=== PATIENT | female | born 1930 | race Caucasian/White ===

== ENCOUNTER 2017-05-16 18:43 | Emergency (ER) | payer MEDICARE, MEDICAID ==
--- NOTE | 2017-05-16 20:03 | RAD ---
INDICATION: Head injury. COMPARISON: Comparison is made with a prior CT of the brain from August 19, 2011. TECHNIQUE: Contiguous axial sections of the brain were obtained from the skull base to the vertex without contrast. FINDINGS: The ventricles, cisterns and sulci are enlarged consistent with diffuse atrophy. No significant focal abnormality or mass effect is seen. There is no evidence for hemorrhage. There is soft tissue swelling anterior to the right frontal bone. No fracture is seen. The visualized portion of the paranasal sinuses and mastoid air cells appear clear. IMPRESSION: 1. NO EVIDENCE FOR ACUTE INTRACRANIAL ABNORMALITY. 2. DIFFUSE ATROPHY.
[2017-05-16 20:54] LABS: Hematocrit 45 % (35-47); Hemoglobin 15.1 g/dl (12.0-16.0); Mean Corpuscular HGB Conc 34 g/dl (31-36); Mean Corpuscular Hemoglobin 31 pg (27-31); Mean Corpuscular Volume 93 fL (80-97); Mean Platelet Volume 7 um3 (7.4-10.4); Red Blood Count 4.84 10^6/ul (4.0-5.4); Red Cell Distribution Width 14 % (10.5-15); White Blood Count 8.1 10^3/ul (3.5-10.8)
[2017-05-16 21:10] LABS: Albumin 4.3 g/dL (3.2-5.2); BUN/Creatinine Ratio 17.4 (8-20); Calcium 9.8 mg/dL (8.6-10.3); EGFR African American 80.7 (>60); EGFR Non-African American 62.7 (>60); Potassium 4.1 mmol/L (3.5-5.0); Total Bilirubin 0.4 mg/dL (0.2-1.0); Total Protein 8.3 g/dL (6.4-8.9)
[2017-05-16 21:11] LABS: Troponin I 0.01 ng/mL (<0.04)
[2017-05-16 22:08] VITALS: BP 159/65
--- NOTE | 2017-05-16 22:12 | ED ---
Brock Zuleta Alfonso, scribed for Sadiq Gómez on 05/16/17 at 1929 . Adult Trauma - HPI Summary HPI Summary: This patient is an 87 year old F BIBA from [place] to [facility] s/p a fall earlier today. She reports falling forward in the bathroom, stating I could not catch myself. The patient rates the pain 0/10 in severity. Symptoms aggravated by nothing and alleviated by spontaneous resolution. Patient reports head trauma (area above her left eyebrow). Patient denies LOC, headache and neck pain. PMHx of DM, CHF, HTN, syncope, and COPD. - History of Current Complaint Chief Complaint: EDHeadInjury Stated Complaint: FALL/FOREHEAD ABRASION Time Seen by Provider: 05/16/17 19:12 Hx Obtained From: Patient Mechanism of Injury: Fall Loss of Consciousness: no loss of consciousness Onset Severity: Mild Current Severity: Mild Pain Intensity: 0 Pain Scale Used: 0-10 Numeric Location: Head Aggravating Factor(s): Nothing Alleviating Factor(s): Other - spontaneous resolution Associated Signs & Symptoms: Positive: Other: - . Patient reports head trauma ( area above her left eyebrow). Patient denies LOC, headache and neck pain. - Allergy/Home Medications Allergies/Adverse Reactions: Allergies Allergy/AdvReac Type Severity Reaction Status Date / Time Levofloxacin [From Levaquin] Allergy Unknown Unknown Verified 12/21/13 10:52 Reaction Details Penicillins [PCN] Allergy hallucinate Verified 08/02/15 15:41 PMH/Surg Hx/FS Hx/Imm Hx Endocrine/Hematology History: Reports: Hx Diabetes, Hx Thyroid Disease - hypothyroidism hx Cardiovascular History: Reports: Hx Congestive Heart Failure, Hx Hypercholesterolemia, Hx Hypertension, Hx Pacemaker/ICD, Hx Syncope Respiratory History: Reports: Hx Chronic Obstructive Pulmonary Disease (COPD) GI History: Reports: Hx Gastroesophageal Reflux Disease History: Denies: Hx Dialysis, Hx Renal Disease Musculoskeletal History: Reports: Hx Arthritis Sensory History: Reports: Hx Cataracts - removed, Hx Contacts or Glasses Opthamlomology History: Reports: Hx Cataracts - removed, Hx Contacts or Glasses - Cancer History Cancer Type, Location and Year: 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, surgically removed, per pt Hx Chemotherapy: No Hx Palliative Cancer Treatment: No - Surgical History Surgery Procedure, Year, and Place: PACEMAKER, OPEN HEART SURGERY Hx Anesthesia Reactions: No Infectious Disease History: Reports: Hx Tuberculosis - pediatric Denies: Traveled Outside the [place] in Last 30 Days - Family History Known Family History: Positive: Diabetes - Social History Alcohol Use: None Substance Use Type: Reports: None Hx Tobacco Use: Yes Smoking Status (MU): Former Smoker Type: Cigarettes Have You Smoked in the Last Year: No Review of Systems Musculoskeletal: Other - Positive fall and head trauma; negative pain, and neck pain. Neurological: Other - Negative headache and LOC All Other Systems Reviewed And Are Negative: Yes Physical Exam Triage Information Reviewed: Yes Vital Signs On Initial Exam: Initial Vitals Temp Pulse Resp BP Pulse Ox 97.6 F 80 18 184/95 94 05/16/17 20:29 05/16/17 20:29 05/16/17 20:29 05/16/17 20:29 05/16/17 20:29 Vital Signs Reviewed: Yes Appearance: Positive: Well-Appearing, No Pain Distress Skin: Positive: Warm, Skin Color Reflects Adequate Perfusion, Dry, Other - Abrasion over right forehead. Head/Face: Positive: Normal Head/Face Inspection Eyes: Positive: EOMI, JUAN PABLO ENT: Positive: Normal ENT inspection Neck: Positive: Supple, Nontender Respiratory/Lung Sounds: Positive: Clear to Auscultation, Breath Sounds Present Cardiovascular: Positive: RRR, Pulses are Symmetrical in both Upper and Lower Extremities Abdomen Description: Positive: Nontender, Soft Bowel Sounds: Positive: Present Musculoskeletal: Positive: Normal, Strength/ROM Intact Neurological: Positive: Normal, Sensory/Motor Intact, Alert, Oriented to Person Place, Time Diagnostics - Vital Signs Vital Signs Temp Pulse Resp BP Pulse Ox 05/16/17 22:07 97.7 F 74 18 159/65 05/16/17 20:29 97.6 F 80 18 184/95 94 - Laboratory Lab Results: Lab Results 05/16/17 05/16/17 Range/Units 20:40 20:40 WBC 8.1 (3.5-10.8) 10^3/ul RBC 4.84 (4.0-5.4) 10^6/ul Hgb 15.1 (12.0-16.0) g/dl Hct 45 (35-47) % MCV 93 (80-97) fL MCH 31 (27-31) pg MCHC 34 (31-36) g/dl RDW 14 (10.5-15) % Plt Count 267 (150-450) 10^3/ul MPV 7 L (7.4-10.4) um3 Neut % (Auto) 66.2 (38-83) % Lymph % (Auto) 19.2 L (25-47) % [place] % (Auto) 8.3 (1-9) % Eos % (Auto) 4.8 (0-6) % Baso % (Auto) 1.5 (0-2) % Absolute Neuts (auto) 5.4 (1.5-7.7) 10^3/ul Absolute Lymphs (auto) 1.6 (1.0-4.8) 10^3/ul Absolute Monos (auto) 0.7 (0-0.8) 10^3/ul Absolute Eos (auto) 0.4 (0-0.6) 10^3/ul Absolute Basos (auto) 0.1 (0-0.2) 10^3/ul Absolute Nucleated RBC 0 10^3/ul Nucleated RBC % 0.1 Sodium 133 (133-145) mmol/L Potassium 4.1 (3.5-5.0) mmol/L Chloride 95 L (101-111) mmol/L Carbon Dioxide 29 (22-32) mmol/L Anion Gap 9 (2-11) mmol/L BUN 15 (6-24) mg/dL Creatinine 0.86 (0.51-0.95) mg/dL Est GFR ( Amer) 80.7 (>60) Est GFR (Non-Af Amer) 62.7 (>60) BUN/Creatinine Ratio 17.4 (8-20) Glucose 162 H (70-100) mg/dL Calcium 9.8 (8.6-10.3) mg/dL Total Bilirubin 0.40 (0.2-1.0) mg/dL AST 20 (13-39) U/L ALT 17 (7-52) U/L Alkaline Phosphatase 110 H (34-104) U/L Troponin I 0.01 (<0.04) ng/mL Total Protein 8.3 (6.4-8.9) g/dL Albumin 4.3 (3.2-5.2) g/dL Globulin 4.0 (2-4) g/dL Albumin/Globulin Ratio 1.1 (1-3) Result Diagrams: 05/16/17 20:40 05/16/17 20:40 Lab Statement: Any lab studies that have been ordered have been reviewed, and results considered in the medical decision making process. - CT Brain CT Interpretation Completed By: Radiologist - 1. NO EVIDENCE FOR ACUTE INTRACRANIAL ABNORMALITY. 2. DIFFUSE ATROPHY. Adult Trauma Course/Dx - Course Assessment/Plan: This patient is an 87 year old F BIBA from [place] to [facility] s /p a fall earlier today. She reports falling forward in the bathroom, stating I could not catch myself. The patient rates the pain 0/10 in severity. Symptoms aggravated by nothing and alleviated by spontaneous resolution. Patient reports head trauma (area above her left eyebrow). Patient denies LOC, headache and neck pain. PMHx of DM, CHF, HTN, syncope, and COPD. A CT brain reveals 1. NO EVIDENCE FOR ACUTE INTRACRANIAL ABNORMALITY. 2. DIFFUSE ATROPHY. Patient will be discharged with follow up from PCP. The patient is agreeable with this plan. - Diagnoses Provider Diagnoses: Forehead contusion, Head injury Discharge - Discharge Plan Condition: Stable Disposition: HOME Patient Education Materials: Contusion in Adults (ED) Referrals: Kami Bob MD [Primary Care Provider] - 3 Days The documentation as recorded by the Brock galeana Alfonso accurately reflects the service I personally performed and the decisions made by , Sadiq Gómez.
== END 2017-05-16 22:07 | disposition home or self-care (01) ==
LOC: ED 18:43
DX: S00.83XA Contusion of other part of head, initial encounter (principal); S09.90XA Unspecified injury of head, initial encounter; W19.XXXA Unspecified fall, initial encounter; Y93.9 Activity, unspecified; Y92.9 Unspecified place or not applicable; Y99.9 Unspecified external cause status; Z87.891 Personal history of nicotine dependence; Z86.79 Personal history of other diseases of the circulatory system
CPT/HCPCS: 36415; 70450; 80053; 84484; 85025; 99282

== ENCOUNTER 2017-07-22 12:33 | Emergency (ER) | payer MEDICARE, MEDICAID ==
[2017-07-22] MEDS ORDERED: NS 0.9% 1000 ML* 1,000 ML IV SCH (15:30)
--- NOTE | 2017-07-22 16:00 | RAD ---
INDICATION: Fall. Intracranial injury. COMPARISON: CT brain May 16, 2017 TECHNIQUE: Noncontrast axial source images were acquired from the skull base to the vertex. FINDINGS: Ventricles/sulci: There is cortical atrophy with compensatory dilatation of the CSF spaces. Brain parenchyma: There is periventricular and subcortical white matter change compatible with chronic ischemia. Intracranial hemorrhage:None. Extra-axial spaces: There are no abnormal extra axial fluid collections or evidence of extra-axial mass. Calvarium: There is no calvarial fracture or other calvarial abnormality. Scalp: There is no evidence of scalp or extracalvarial soft tissue abnormality. Paranasal sinuses/mastoid: The paranasal sinuses and mastoid air cells are clear. Other: None. IMPRESSION: CORTICAL ATROPHY WITH CHRONIC MICROVASCULAR ISCHEMIC CHANGES. NO ACUTE FINDINGS.
--- NOTE | 2017-07-22 16:01 | RAD ---
INDICATION: Weakness COMPARISON: Chest x-ray dated March 03, 2015 TECHNIQUE: Single AP portable view of the chest was obtained. FINDINGS: Image quality is compromised due to the relative inferiority of a portable chest x-ray. Stable postsurgical changes include right upper chest cardiac pacemaker with 2 leads overlying the heart, sternotomy wires and a prostatic heart valve. The heart and mediastinum exhibit normal size and contour. The lungs are grossly clear. There is no evidence of a large pleural effusion. Visualized bones are normal for the patient's age. IMPRESSION: No radiographic evidence for acute cardiopulmonary abnormality on this portable chest x-ray.
--- NOTE | 2017-07-22 16:02 | RAD ---
Indication: Weakness, falls. Bilateral knee pain. Comparison: No relevant prior exams available on the [facility] for comparison. Technique: AP, tunnel, crosstable lateral, sunrise views of the knees. Report: RIGHT knee: Negative for joint effusion, fracture, or malalignment. Mild osteophytosis. Mild tricompartmental joint space narrowing and suggestion of chondrocalcinosis. Peripheral vascular calcifications. Unremarkable soft tissue contours. LEFT knee: Normal alignment. Small suprapatellar joint effusion. Negative for fracture. Moderately severe lateral joint space narrowing with associated flattening of the articular surfaces and subchondral sclerosis. Subtle chondrocalcinosis. Peripheral vascular calcifications. Unremarkable soft tissue contours. IMPRESSION: 1. 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 2. Small LEFT knee joint effusion. 3. Negative for fracture or malalignment.
[2017-07-22 17:25] LABS: Albumin 4.1 g/dL (3.2-5.2); BUN/Creatinine Ratio 21.1 (8-20); C Reactive Protein 1.11 mg/L (< 5.00); Calcium 9.7 mg/dL (8.6-10.3); EGFR African American 100.6 (>60); EGFR Non-African American 78.2 (>60); Globulin 3.6 g/dL (2-4); Magnesium 1.9 mg/dL (1.9-2.7); Total Bilirubin 0.4 mg/dL (0.2-1.0); Total Protein 7.7 g/dL (6.4-8.9); Troponin I 0.01 ng/mL (<0.04)
[2017-07-22 17:41] LABS: Urine Bacteria Absent (Absent); Urine Bilirubin Negative (Negative); Urine Glucose Negative (Negative); Urine Nitrite Negative (Negative)
[2017-07-22 18:05] LABS: Hematocrit 41 % (35-47); Hemoglobin 13.7 g/dl (12.0-16.0); Mean Corpuscular HGB Conc 34 g/dl (31-36); Mean Corpuscular Hemoglobin 31 pg (27-31); Mean Corpuscular Volume 92 fL (80-97); Mean Platelet Volume 7 um3 (7.4-10.4); Red Cell Distribution Width 14 % (10.5-15); White Blood Count 8.1 10^3/ul (3.5-10.8)
[2017-07-22 18:11] LABS: TSH (Thyroid Stimulating Horm) 0.75 mcIU/mL (0.34-5.60)
[2017-07-22] MEDS ORDERED: Nitrofurantoin Macrocrystals* 50 MG CAP PO ONE ×2 (19:03→19:04)
--- NOTE | 2017-07-22 19:09 | ED ---
Matt Zuleta Benjamin, scribed for Marco Dejesus MD on 07/22/17 at 1520 . Neurological HPI - HPI Summary HPI Summary: 87yo female presents to ED from [place] for AMS and frequent falls. Pt fell 3 times in the last 2 weeks. Today at noon, [facility] cyber security consultant noticed pt having slurred speech and blurred vision and called her PCP. PCP suggested ED visit. Pt has chronic bilateral LE, with usually left leg stronger than her right leg, but states that her left leg has been increasingly weak lately. Pt also presents with left sided facial droop. No prior hx of CVA. Denies any numbness , tingling, or changes in sensation. - History of Current Complaint Chief Complaint: EDGeneral Stated Complaint: AMS, FALL THREE TIMES THIS WEEK Time Seen by Provider: 07/22/17 15:08 Hx Obtained From: Patient, Family/Front Office Supervisor - family Onset/Duration: Sudden Onset, Started hours ago, Resolved Timing: Intermittent Episodes Lasting: - few minutes Onset Severity: Mild Current Severity: None Neurological Deficit Location: Facial - left facial droop Pain Intensity: 0 Character: Impaired Speech, Visual Changes - blurry vision - Allergy/Home Medications Allergies/Adverse Reactions: Allergies Allergy/AdvReac Type Severity Reaction Status Date / Time Levofloxacin [From Levaquin] Allergy Unknown Unknown Verified 07/22/17 14:51 Reaction Details Penicillins [PCN] Allergy hallucinate Verified 07/22/17 14:51 Home Medications: Home Medications Artificial Tears* 15 ML BTL [Polyvinyl Alcohol 1.4% OPTH*] 2 drop RIGHT EYE TID PRN 07/22/17 [History Confirmed 07/22/17] Dextrose (Diabetic Use) [Glucose] 8 gm PO DAILY PRN 07/22/17 [History Confirmed 07/22/17] Diltiazem CD CAP* [Cardizem CD CAP*] 240 mg PO QAM 07/22/17 [History Confirmed 07/22/17] Docusate CAP* [Colace Cap*] 200 mg PO DAILY PRN 07/22/17 [History Confirmed ] Ferrous Gluconate TAB* [Fergon TAB*] 325 mg PO BID 07/22/17 [History Confirmed 07/22/17] Fluticasone NASAL SPRAY 50MCG* [Flonase NASAL SPRAY 50MCG*] 1 spray BOTH NARES DAILY 07/22/17 [History Confirmed 07/22/17] Insulin Glargine [Lantus Solostar 5x3 ML PENS] 15 units SUBCUT QAM 07/22/17 [ History Confirmed 07/22/17] Loperamide HCl [Imodium A-D] 4 mg PO QID PRN MDD 16 mg 07/22/17 [History Confirmed 07/22/17] Magnesium Oxide TAB* [MagOx 400 TAB*] 800 mg PO QAM 07/22/17 [History Confirmed 07/22/17] Multiple Vitamins W/ Minerals [Preservision Areds 2 + Mu] 1 cap PO BID 07/22/17 [History Confirmed 07/22/17] Polyethylene Glycol 3350* [Miralax*] 17 gm PO DAILY PRN 07/22/17 [History Confirmed 07/22/17] Pravastatin (NF) [Pravachol (NF)] 40 mg PO BEDTIME 07/22/17 [History Confirmed 07/22/17] SitaGLIPtin (NF) [Januvia (NF)] 100 mg PO DAILY 07/22/17 [History Confirmed ] Valsartan TAB* [Diovan TAB*] 80 mg PO DAILY 07/22/17 [History Confirmed 07/22/17 ] glipiZIDE TAB* [Glucotrol TAB*] 10 mg PO BID 07/22/17 [History Confirmed ] PMH/Surg Hx/FS Hx/Imm Hx Endocrine/Hematology History: Reports: Hx Diabetes, Hx Thyroid Disease - hypothyroidism hx Cardiovascular History: Reports: Hx Congestive Heart Failure, Hx Hypercholesterolemia, Hx Hypertension, Hx Pacemaker/ICD, Hx Syncope Respiratory History: Reports: Hx Chronic Obstructive Pulmonary Disease (COPD) GI History: Reports: Hx Gastroesophageal Reflux Disease History: Denies: Hx Dialysis, Hx Renal Disease Musculoskeletal History: Reports: Hx Arthritis Sensory History: Reports: Hx Cataracts - removed, Hx Contacts or Glasses Opthamlomology History: Reports: Hx Cataracts - removed, Hx Contacts or Glasses - Cancer History Cancer Type, Location and Year: 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, surgically removed, per pt Hx Chemotherapy: No Hx Palliative Cancer Treatment: No - Surgical History Surgery Procedure, Year, and Place: PACEMAKER, OPEN HEART SURGERY Hx Anesthesia Reactions: No - Immunization History Date of Tetanus Vaccine: unknown Date of Influenza Vaccine: UTD Infectious Disease History: No Infectious Disease History: Reports: Hx Tuberculosis - pediatric Denies: Traveled Outside the [place] in Last 30 Days - Family History Known Family History: Positive: Diabetes - Social History Occupation: Retired Lives: Assisted Living Alcohol Use: None Substance Use Type: Reports: None Hx Tobacco Use: Yes Smoking Status (MU): Former Smoker Type: Cigarettes Have You Smoked in the Last Year: No Review of Systems Constitutional: Negative Positive: Blurred Vision ENT: Negative Cardiovascular: Negative Respiratory: Negative Gastrointestinal: Negative Genitourinary: Negative Musculoskeletal: Negative Skin: Negative Positive: Slurred Speech Psychological: Normal All Other Systems Reviewed And Are Negative: Yes Physical Exam Triage Information Reviewed: Yes Vital Signs On Initial Exam: Initial Vitals Temp Pulse Resp BP Pulse Ox 97.7 F 78 18 152/67 95 07/22/17 14:49 07/22/17 14:49 07/22/17 14:49 07/22/17 14:49 07/22/17 14:49 Vital Signs Reviewed: Yes Appearance: Positive: Well-Appearing, No Pain Distress, Well-Nourished Skin: Positive: Warm, Skin Color Reflects Adequate Perfusion, Dry Head/Face: Positive: Normal Head/Face Inspection Eyes: Positive: Normal, EOMI, JUAN PABLO ENT: Positive: Normal ENT inspection Neck: Positive: Supple, Nontender Respiratory/Lung Sounds: Positive: Clear to Auscultation, Breath Sounds Present Cardiovascular: Positive: RRR, Pulses are Symmetrical in both Upper and Lower Extremities Abdomen Description: Positive: Nontender, Soft Bowel Sounds: Positive: Present Musculoskeletal: Negative: Strength/ROM Intact - chronic bilateral LE weakness, no acute changes Neurological: Positive: Sensory/Motor Intact, Alert, Oriented to Person Place, Time, Facial Droop - left facial drrop. Negative: Focal Deficit @ - none Psychiatric: Positive: Affect/Mood Appropriate - Uri Coma Scale Coma Scale Total: 15 Diagnostics - Vital Signs Vital Signs Temp Pulse Resp BP Pulse Ox 07/22/17 14:49 97.7 F 78 18 152/67 95 - Laboratory Lab Results: Lab Results 07/22/17 07/22/17 07/22/17 Range/Units 16:12 16:28 17:00 WBC (3.5-10.8) 10^3/ul RBC (4.0-5.4) 10^6/ul Hgb (12.0-16.0) g/dl Hct (35-47) % MCV (80-97) fL MCH (27-31) pg MCHC (31-36) g/dl RDW (10.5-15) % Plt Count (150-450) 10^3/ul MPV (7.4-10.4) um3 Neut % (Auto) (38-83) % Lymph % (Auto) (25-47) % [place] % (Auto) (1-9) % Eos % (Auto) (0-6) % Baso % (Auto) (0-2) % Absolute Neuts (auto) (1.5-7.7) 10^3/ul Absolute Lymphs (auto) (1.0-4.8) 10^3/ul Absolute Monos (auto) (0-0.8) 10^3/ul Absolute Eos (auto) (0-0.6) 10^3/ul Absolute Basos (auto) (0-0.2) 10^3/ul Absolute Nucleated RBC 10^3/ul Nucleated RBC % INR (Anticoag Therapy) 0.83 L (0.89-1.11) APTT 28.6 (26.0-36.3) seconds Sodium 136 (133-145) mmol/L Potassium 4.0 (3.5-5.0) mmol/L Chloride 100 L (101-111) mmol/L Carbon Dioxide 29 (22-32) mmol/L Anion Gap 7 (2-11) mmol/L BUN 15 (6-24) mg/dL Creatinine 0.71 (0.51-0.95) mg/dL Est GFR ( Amer) 100.6 (>60) Est GFR (Non-Af Amer) 78.2 (>60) BUN/Creatinine Ratio 21.1 H (8-20) Glucose 92 (70-100) mg/dL Calcium 9.7 (8.6-10.3) mg/dL Magnesium 1.9 (1.9-2.7) mg/dL Total Bilirubin 0.40 (0.2-1.0) mg/dL AST 24 (13-39) U/L ALT 18 (7-52) U/L Alkaline Phosphatase 87 (34-104) U/L Total Creatine Kinase 56 (10-223) U/L CK-MB (CK-2) 1.7 (0.6-6.3) ng/mL Troponin I 0.01 (<0.04) ng/mL C-Reactive Protein 1.11 (< 5.00) mg/L Total Protein 7.7 (6.4-8.9) g/dL Albumin 4.1 (3.2-5.2) g/dL Globulin 3.6 (2-4) g/dL Albumin/Globulin Ratio 1.1 (1-3) Lipase 74 (11.0-82.0) U/L TSH 0.75 (0.34-5.60) mcIU/mL Urine Color Straw Urine Appearance Cloudy Urine pH 8.0 (5-9) Ur Specific [place] 1.005 L (1.010-1.030) Urine Protein 1+(30 mg/dl) H (Negative) Urine Ketones Negative (Negative) Urine Blood 2+ H (Negative) Urine Nitrate Negative (Negative) Urine Bilirubin Negative (Negative) Urine Urobilinogen Negative (Negative) Ur Leukocyte Esterase 3+ H (Negative) Urine WBC (Auto) 3+(>20/hpf) H (Absent) Urine RBC (Auto) 3+(>10/hpf) H (Absent) Urine Bacteria Absent (Absent) Urine Glucose Negative (Negative) 07/22/ Range/Units 17:58 WBC 8.1 (3.5-10.8) 10^3/ul RBC 4.40 (4.0-5.4) 10^6/ul Hgb 13.7 (12.0-16.0) g/dl Hct 41 (35-47) % MCV 92 (80-97) fL MCH 31 (27-31) pg MCHC 34 (31-36) g/dl RDW 14 (10.5-15) % Plt Count 221 (150-450) 10^3/ul MPV 7 L (7.4-10.4) um3 Neut % (Auto) 65.0 (38-83) % Lymph % (Auto) 20.6 L (25-47) % [place] % (Auto) 9.6 H (1-9) % Eos % (Auto) 4.1 (0-6) % Baso % (Auto) 0.7 (0-2) % Absolute Neuts (auto) 5.2 (1.5-7.7) 10^3/ul Absolute Lymphs (auto) 1.7 (1.0-4.8) 10^3/ul Absolute Monos (auto) 0.8 (0-0.8) 10^3/ul Absolute Eos (auto) 0.3 (0-0.6) 10^3/ul Absolute Basos (auto) 0.1 (0-0.2) 10^3/ul Absolute Nucleated RBC 0.01 10^3/ul Nucleated RBC % 0.1 INR (Anticoag Therapy) (0.89-1.11) APTT (26.0-36.3) seconds Sodium (133-145) mmol/L Potassium (3.5-5.0) mmol/L Chloride (101-111) mmol/L Carbon Dioxide (22-32) mmol/L Anion Gap (2-11) mmol/L BUN (6-24) mg/dL Creatinine (0.51-0.95) mg/dL Est GFR ( Amer) (>60) Est GFR (Non-Af Amer) (>60) BUN/Creatinine Ratio (8-20) Glucose (70-100) mg/dL Calcium (8.6-10.3) mg/dL Magnesium (1.9-2.7) mg/dL Total Bilirubin (0.2-1.0) mg/dL AST (13-39) U/L ALT (7-52) U/L Alkaline Phosphatase (34-104) U/L Total Creatine Kinase (10-223) U/L CK-MB (CK-2) (0.6-6.3) ng/mL Troponin I (<0.04) ng/mL C-Reactive Protein (< 5.00) mg/L Total Protein (6.4-8.9) g/dL Albumin (3.2-5.2) g/dL Globulin (2-4) g/dL Albumin/Globulin Ratio (1-3) Lipase (11.0-82.0) U/L TSH (0.34-5.60) mcIU/mL Urine Color Urine Appearance Urine pH (5-9) Ur Specific [place] (1.010-1.030) Urine Protein (Negative) Urine Ketones (Negative) Urine Blood (Negative) Urine Nitrate (Negative) Urine Bilirubin (Negative) Urine Urobilinogen (Negative) Ur Leukocyte Esterase (Negative) Urine WBC (Auto) (Absent) Urine RBC (Auto) (Absent) Urine Bacteria (Absent) Urine Glucose (Negative) Result Diagrams: 07/22/17 17:58 07/22/17 16:28 Lab Statement: Any lab studies that have been ordered have been reviewed, and results considered in the medical decision making process. Course/Dx - Course Course Of Treatment: Reviewed pts medication and allergy lists. High Blood pressure noted. DISCUSSED RESULTS WITH PATIENT/FAMILY AND DR BLACKWELL, NEUROLOGY. F/U WITH PMD. DDX INCLUDED PERIFERAL NEUOPATHY. NO CRITICAL CARE TIME. - Diagnoses Provider Diagnoses: Weakness, Falls frequently, UTI (urinary tract infection) Discharge - Discharge Plan Condition: Stable Disposition: HOME Prescriptions: Nitrofurantoin Monohyd Macro [Macrobid] 100 mg PO BID #18 cap Patient Education Materials: Weakness (ED), Urinary Tract Infection in Women ( ED), Fall Prevention for Older Adults (ED), Knee Pain (ED) Referrals: Kami Bob MD [Primary Care Provider] - Additional Instructions: FOLLOW UP WITH YOUR DOCTOR. RETURN TO THE EMERGENCY DEPARTMENT FOR ANY WORSENING OF YOUR CONDITION; WEAKNESS , NUMBNESS, YOU FEEL ILL OR QUESTIONS OR CONCERNS. The documentation as recorded by the Matt galeana Benjamin accurately reflects the service I personally performed and the decisions made by me, Marco Dejesus MD.
[2017-07-22 19:40] VITALS: BP 165/81
== END 2017-07-22 19:41 | disposition home or self-care (01) ==
LOC: ED 12:33
DX: R53.1 Weakness (principal); N39.0 Urinary tract infection, site not specified; Z91.81 History of falling; R47.81 Slurred speech; Z87.891 Personal history of nicotine dependence
CPT/HCPCS: 36415; 70450; 71010; 80053; 81003; 81015; 82550; 82553; 83690; 83735; 84443; 84484; 85025; 85610; 85730; 86140; 87086; 93005; 99284; A9270-GY

== ENCOUNTER 2017-08-19 12:41 | Emergency (ER) | payer MEDICARE, MEDICAID ==
--- NOTE | 2017-08-19 14:05 | RAD ---
HISTORY: Weakness COMPARISONS: July 22, 2017 VIEWS: 1: frontal portable view of the chest at 1:40 PM FINDINGS: LINES AND TUBES: A right-sided pacemaker is noted CARDIOMEDIASTINAL SILHOUETTE: The cardiomediastinal silhouette is normal for portable technique. A prosthetic heart valve is noted. PLEURA: The costophrenic angles are sharp. No pleural abnormalities are noted. LUNG PARENCHYMA: The lungs are clear. ABDOMEN: The upper abdomen is clear. There is no subphrenic gas. BONES AND SOFT TISSUES: The patient is status post median sternotomy. IMPRESSION: NO ACTIVE CARDIOPULMONARY DISEASE.
[2017-08-19 14:13] LABS: Hematocrit 40 % (35-47); Hemoglobin 13.4 g/dl (12.0-16.0); Mean Corpuscular HGB Conc 33 g/dl (31-36); Mean Corpuscular Hemoglobin 31 pg (27-31); Mean Corpuscular Volume 93 fL (80-97); Mean Platelet Volume 8 um3 (7.4-10.4); Red Blood Count 4.34 10^6/ul (4.0-5.4); Red Cell Distribution Width 14 % (10.5-15); White Blood Count 6.5 10^3/ul (3.5-10.8)
[2017-08-19 14:20] LABS: Urine Bacteria Absent (Absent); Urine Bilirubin Negative (Negative); Urine Glucose Negative (Negative); Urine Nitrite Negative (Negative)
[2017-08-19 14:25] LABS: C Reactive Protein 2.13 mg/L (< 5.00); Calcium 9.5 mg/dL (8.6-10.3); EGFR Non-African American 72.3 (>60); Globulin 3.1 g/dL (2-4); Potassium 3.9 mmol/L (3.5-5.0); Total Bilirubin 0.3 mg/dL (0.2-1.0); Total Protein 7.1 g/dL (6.4-8.9)
[2017-08-19 17:00] VITALS: BP 152/64
--- NOTE | 2017-08-19 18:38 | ED ---
Brock Zuleta Alfonso scribed for Gideon Jay MD on 08/19/17 at 1319 . Complex/Multi-Sys Presentation - HPI Summary HPI Summary: This patient is an 87 year old F BIBA from assisted living to [facility] with a chief complaint of low blood sugar since waking up today. She gets insulin once a day in the evenings. The patient rates the pain 0/10 in severity. Symptoms aggravated by nothing. Symptoms alleviated by oral glucose [employer]. Patient reports mild cough, and dysuria (sometimes). Patient denies fever, CP, and SOB. - History Of Current Complaint Chief Complaint: EDGeneral Time Seen by Provider: 08/19/17 13:09 Hx Obtained From: Patient Onset/Duration: Gradual Onset, Lasting Hours, Resolved Timing: Constant Severity Currently: None Aggravating Factor(s): nothing Alleviating Factor(s): oral glucose [employer]. Associated Signs And Symptoms: Positive: Other - mild cough, and dysuria ( sometimes). Patient denies fever, CP, and SOB. - Allergies/Home Medications Allergies/Adverse Reactions: Allergies Allergy/AdvReac Type Severity Reaction Status Date / Time Levofloxacin [From Levaquin] Allergy Unknown Unknown Verified 07/22/17 14:51 Reaction Details Penicillins [PCN] Allergy hallucinate Verified 07/22/17 14:51 Home Medications: Home Medications Amoxicillin PO (*) [Amoxicillin 500 MG CAP*] 2,000 mg PO ONCE 08/19/17 [History Confirmed 08/19/17] Aspirin Low Dose CHEW TAB* [Aspirin Low Dose TAB*] 81 mg PO DAILY 08/19/17 [ History Confirmed 08/19/17] Hydrocortisone SUPP* [Anusol HC Supp*] 25 mg MN BID PRN 08/19/17 [History Confirmed 08/19/17] Ibuprofen TAB* [Motrin TAB* 600 MG] 600 mg PO .Q4-6H PRN 08/19/17 [History Confirmed 08/19/17] Loperamide CAP* [Imodium CAP*] 4 mg PO DAILY PRN 08/19/17 [History Confirmed ] Ranitidine TAB (NF) [Zantac TAB (NF)] 150 mg PO BID PRN 08/19/17 [History Confirmed 08/19/17] PMH/Surg Hx/FS Hx/Imm Hx Endocrine/Hematology History: Reports: Hx Diabetes, Hx Thyroid Disease - hypothyroidism hx Cardiovascular History: Reports: Hx Congestive Heart Failure, Hx Hypercholesterolemia, Hx Hypertension, Hx Pacemaker/ICD, Hx Syncope Respiratory History: Reports: Hx Chronic Obstructive Pulmonary Disease (COPD) GI History: Reports: Hx Gastroesophageal Reflux Disease History: Denies: Hx Dialysis, Hx Renal Disease Musculoskeletal History: Reports: Hx Arthritis Sensory History: Reports: Hx Cataracts - removed, Hx Contacts or Glasses Opthamlomology History: Reports: Hx Cataracts - removed, Hx Contacts or Glasses EENT History: Denies: Hx Deafness - Cancer History Cancer Type, Location and Year: 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, surgically removed, per pt Hx Chemotherapy: No Hx Palliative Cancer Treatment: No - Surgical History Surgery Procedure, Year, and Place: PACEMAKER, OPEN HEART SURGERY Hx Anesthesia Reactions: No - Immunization History Date of Tetanus Vaccine: unknown Date of Influenza Vaccine: UTD Infectious Disease History: No Infectious Disease History: Reports: Hx Tuberculosis - pediatric Denies: Traveled Outside the [place] in Last 30 Days - Family History Known Family History: Positive: Diabetes - Social History Alcohol Use: None Hx Substance Use: No Substance Use Type: Reports: None Hx Tobacco Use: Yes Smoking Status (MU): Former Smoker Type: Cigarettes Have You Smoked in the Last Year: No Review of Systems Positive: Other - low blood sugar. Negative: Fever Negative: Chest Pain Positive: Cough. Negative: Shortness Of Breath Positive: dysuria All Other Systems Reviewed And Are Negative: Yes Physical Exam - Summary Physical Exam Summary: VITAL SIGNS: Reviewed. GENERAL: Patient is an elderly and nourished female who is lying comfortable in the stretcher. Patient is not in any acute respiratory distress. HEAD AND FACE: No signs of trauma. No ecchymosis, hematomas or skull depressions. No sinus tenderness. EYES: PERRLA, EOMI x 2, No injected conjunctiva, no nystagmus. EARS: Hearing grossly intact. Ear canals and tympanic membranes are within normal limits. MOUTH: Oropharynx within normal limits. NECK: Supple, trachea is midline, no adenopathy, no JVD, no carotid bruit, no c- spine tenderness, neck with full ROM. CHEST: Symmetric, no tenderness at palpation LUNGS: Clear to auscultation bilaterally. No wheezing or crackles. CVS: Regular rate and rhythm, S1 and S2 present, no murmurs or gallops appreciated. ABDOMEN: Soft, non-tender. No signs of distention. No rebound no guarding, and no masses palpated. Bowel sounds are normal. EXTREMITIES: FROM in all major joints, no edema, no cyanosis or clubbing. NEURO: Alert and oriented x 3. No acute neurological deficits. Speech is normal and follows commands. SKIN: Dry and warm Triage Information Reviewed: Yes Vital Signs On Initial Exam: Initial Vitals Temp Pulse Resp BP Pulse Ox 97.4 F 77 20 168/62 99 08/19/17 12:43 08/19/17 12:43 08/19/17 12:43 08/19/17 12:43 08/19/17 12:43 Vital Signs Reviewed: Yes - [place] Coma Scale Coma Scale Total: 15 Diagnostics - Vital Signs Vital Signs Temp Pulse Resp BP Pulse Ox 08/19/17 12:43 97.4 F 77 20 168/62 99 - Laboratory Result Diagrams: 08/19/17 13:50 08/19/17 13:50 Lab Statement: Any lab studies that have been ordered have been reviewed, and results considered in the medical decision making process. - Radiology CXR Radiology Interpretation Completed By: Radiologist - NO ACTIVE CARDIOPULMONARY DISEASE. ED physician has reviewed this radiology report and agrees. - EKG 1324 Cardiac Rate: NL EKG Rhythm: Sinus Rhythm - BPM 77 EKG Interpretation: RBBB. EKG Comparison: No Significant Change - 07/22/17 Complex Multi-Symp Course/Dx Assessment/Plan: This patient is an 87 year old F BIBA from assisted living to [facility] with a chief complaint of low blood sugar since waking up today. She gets insulin once a day in the evenings. The patient rates the pain 0/10 in severity. Symptoms aggravated by nothing. Symptoms alleviated by oral glucose [employer]. Patient reports mild cough, and dysuria (sometimes). Patient denies fever , CP, and SOB. An EKG reveals Sinus Rhythm and a RBBB. CXR reveals, per radiologist, NO ACTIVE CARDIOPULMONARY DISEASE. ED physician has reviewed this radiology report and agrees. Test results with no significant abnormalities. Glucose of 134 and later was 140. The patient has been and continues to be asymptomatic, and she is eating and drinking, She was ambulated around the ED with a good steady walk. The patient was observed for more than 4 hours and her symptoms did not return. Therefore, the patient will be discharged back to long-term with follow up from PCP. The patient is agreeable with this plan. The patient is hemodynamically stable, alert and oriented x3. - Diagnoses Provider Diagnoses: Hypoglycemia Discharge - Discharge Plan Condition: Stable Disposition: HOME Patient Education Materials: Hypoglycemia in a Person with Diabetes (ED) Referrals: Kami Bob MD [Primary Care Provider] - 3 Days Additional Instructions: RETURN TO THE EMERGENCY DEPARTMENT FOR CHANGING OR WORSENING SYMPTOMS. The documentation as recorded by the Brock galeana Alfonso accurately reflects the service I personally performed and the decisions made by Pierre olivas Walter, MD.
== END 2017-08-19 16:59 | disposition home or self-care (01) ==
LOC: ED 12:41
DX: E11.649 Type 2 diabetes mellitus with hypoglycemia without coma (principal); Z79.4 Long term (current) use of insulin; R05 Cough; R30.0 Dysuria; I45.10 Unspecified right bundle-branch block; E03.9 Hypothyroidism, unspecified; I50.9 Heart failure, unspecified; E78.00 Pure hypercholesterolemia, unspecified; I10 Essential (primary) hypertension; Z95.0 Presence of cardiac pacemaker; Z79.82 Long term (current) use of aspirin; J44.9 Chronic obstructive pulmonary disease, unspecified; K21.9 Gastro-esophageal reflux disease without esophagitis; Z85.828 Personal history of other malignant neoplasm of skin; Z88.1 Allergy status to other antibiotic agents; Z88.0 Allergy status to penicillin; Z87.891 Personal history of nicotine dependence
CPT/HCPCS: 36415; 71010; 80053; 81003; 81015; 85025; 86140; 93005; 99283

== ENCOUNTER 2017-09-08 16:22 | Emergency (ER) | payer MEDICARE, MEDICAID ==
[2017-09-08] MEDS ORDERED: Tetan/Diph/Pertus SYR(Tdap)* 0.5 ML SYR(BOOSTRIX) use SYR IM ONE (17:56)
[2017-09-08 18:11] LABS: Hematocrit 41 % (35-47); Hemoglobin 13.8 g/dl (12.0-16.0); Mean Corpuscular HGB Conc 34 g/dl (31-36); Mean Corpuscular Hemoglobin 31 pg (27-31); Mean Corpuscular Volume 92 fL (80-97); Mean Platelet Volume 8 um3 (7.4-10.4); Red Blood Count 4.49 10^6/ul (4.0-5.4); Red Cell Distribution Width 14 % (10.5-15); White Blood Count 7.1 10^3/ul (3.5-10.8)
[2017-09-08 18:26] LABS: Calcium 9.6 mg/dL (8.6-10.3); EGFR African American 73.7 (>60); EGFR Non-African American 57.3 (>60); Globulin 3.4 g/dL (2-4); Total Bilirubin 0.4 mg/dL (0.2-1.0); Total Protein 7.4 g/dL (6.4-8.9)
--- NOTE | 2017-09-08 18:35 | RAD ---
Indication: Fall; facial abrasions. Laceration to bridge of the nose. Comparison: July 22, 2017 CT. Technique: Noncontrast CT vertex of skull through foramen magnum. Report: Moderate prominence of the cerebral sulci. Unremarkable ventricles and basal cisterns. Negative for michael matter white matter obscuration, intra or extra-axial hemorrhage, or mass effect. 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 Unremarkable visualized orbital contents. Negative for calvarial or skull base fracture. Clear visualized paranasal sinuses and mastoid air spaces. Soft tissue swelling over the bridge of the nose. No loculated scalp hematoma evident. IMPRESSION: 1. No evidence for traumatic brain injury or acute intracranial process. 2. Involutional change and stigmata of chronic small vessel ischemic disease.
[2017-09-08 18:37] LABS: Urine Bilirubin Negative (Negative); Urine Glucose Negative (Negative); Urine Nitrite Negative (Negative)
--- NOTE | 2017-09-08 18:38 | RAD ---
INDICATION: Fall with facial abrasions and laceration over the bridge of the nose. COMPARISON: CT brain of the same date. TECHNIQUE: Multidetector CT base of the skull through mandible without contrast. Multiplanar reformation. REPORT: Artifact from dental amalgam. Soft tissue edema over the bridge of the nose. Negative for loculated soft tissue hematoma. Unremarkable orbital contents. The orbital and maxillary sinus margins, zygomatic arches, lamina papyracea, base of the maxilla, pterygoid plates, and nasal bones are intact. The senile morphology mandible is intact. Normal temporal mandibular joint alignment. Clear paranasal sinuses and visualized mastoid air spaces. IMPRESSION: Negative for maxillofacial fracture.
--- NOTE | 2017-09-08 18:44 | RAD ---
INDICATION: Mechanical fall. Facial abrasions and lacerations at the bridge of the nose. COMPARISON: No relevant prior exams available on the [facility] PACS for comparison. TECHNIQUE: Multidetector CT images foramen magnum to lung apices without contrast. Multiplanar reformation. REPORT: Minimal degenerative C3-C4 and C4-C5 anterolisthesis. Negative for facet subluxation at any level. Negative for vertebral body or posterior element fracture. Negative for paravertebral hematoma. Diffuse advanced degenerative spondylosis and facet joint osteoarthritis. At C3-C4 uncinate process spurring and facet joint osteoarthritis results in mild RIGHT and moderate LEFT foraminal stenosis. At C4-C5 uncinate process spurring and facet joint osteoarthritis results in moderately severe bilateral foraminal stenosis. Negative for significant acquired spinal stenosis at C5-C6 or C6-C7. Congenitally generous pedicles lengths mitigating against more significant acquired spinal stenosis. IMPRESSION: Negative for traumatic injury of the cervical spine.
[2017-09-08 19:14] VITALS: BP 157/75
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
== END 2017-09-08 19:22 | disposition home or self-care (01) ==
LOC: ED 16:22
DX: S00.81XA Abrasion of other part of head, initial encounter (principal); S00.83XA Contusion of other part of head, initial encounter; W19.XXXA Unspecified fall, initial encounter; Y93.9 Activity, unspecified; Y92.9 Unspecified place or not applicable
CPT/HCPCS: 36415; 70450; 70486; 72125; 80053; 81003; 83605; 85025; 90471; 90715; 99282

== ENCOUNTER 2017-11-15 09:19 | Emergency (ER) | payer MEDICARE, MEDICAID ==
--- NOTE | 2017-11-15 12:29 | ED ---
HPI Diabetic - HPI Summary HPI Summary: Pt here w/ low blood glucose this morning. Was 77 and then she received all of her diabetic medications (ie. glucophage, glipizide, lantus 15units and ....). Shortly thereafter, staff was asking her what was wrong, would not let her go to breakfast as they were concerned about her "acting strange". They rechecked her glucose (and she had not had anything to eat at this point) and it was 38. They administered oral glucose and sent her here for evaluation. She was 69 when she arrived here. Received a tuna sandwich and milk and glucose rechecked 2.3 hrs later - she is 129, alert, feels well w/o complaints. SHe admits he blood sugars ahve been all over (400's this week which is why she didn't have a bedtime snack last night as she usually does). Follows w/ PCP for diabetes control. Son-in-law is here w/ her today and reports her levels are usually "good". No other complaints or concerns - she has not had illness, etc. - History Of Current Complaint Chief Complaint: EDDiabeticProb Time Seen by Provider: 11/15/17 09:40 Hx Obtained From: Patient, Family/Floors Buffer - son-in-law - Allergies/Home Medications Allergies/Adverse Reactions: Allergies Allergy/AdvReac Type Severity Reaction Status Date / Time MS Levofloxacin Allergy Unknown Unknown Verified 07/22/17 14:51 [From Levaquin] Reaction Details MS Penicillins [PCN] Allergy hallucinate Verified 07/22/17 14:51 Home Medications: Home Medications Dextrose/Vitamin D3 [Trueplus Glucose 4 gm Tab Chew] 1 tab.chew PO DAILY PRN [History Confirmed 11/15/17] Insulin GLARGINE(*) [Lantus(*)] 15 units SUBCUT QAM 11/15/17 [History Confirmed 11/15/17] Sulfamethox/Trimethoprim DS* [Bactrim DS 800/160 TAB*] 0.5 tab PO BEDTIME [History Confirmed 11/15/17] Vit C/E/Zn/Coppr/Lutein/Zeaxan [Preservision Areds 2 Softgel] 1 cap PO BID 11/15 [History Confirmed 11/15/17] PMH/Surg Hx/FS Hx/Imm Hx Previously Healthy: Yes Endocrine/Hematology History: Reports: Hx Diabetes - on oral meds and insulin, Hx Thyroid Disease - hypothyroidism hx Cardiovascular History: Reports: Hx Congestive Heart Failure, Hx Hypercholesterolemia, Hx Hypertension, Hx Pacemaker/ICD, Hx Syncope Respiratory History: Reports: Hx Chronic Obstructive Pulmonary Disease (COPD), Other Respiratory Problems/Disorders - PNA GI History: Reports: Hx Gastroesophageal Reflux Disease History: Denies: Hx Dialysis, Hx Renal Disease Musculoskeletal History: Reports: Hx Arthritis Sensory History: Reports: Hx Cataracts - removed, Hx Contacts or Glasses Denies: Hx Deafness Opthamlomology History: Reports: Hx Cataracts - removed, Hx Contacts or Glasses - Cancer History Cancer Type, Location and Year: 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, surgically removed, per pt Hx Chemotherapy: No Hx Palliative Cancer Treatment: No - Surgical History Surgery Procedure, Year, and Place: PACEMAKER, OPEN HEART SURGERY Hx Anesthesia Reactions: No - Immunization History Date of Tetanus Vaccine: unknown Date of Influenza Vaccine: UTD Infectious Disease History: No Infectious Disease History: Reports: Hx Tuberculosis - pediatric Denies: Traveled Outside the [place] in Last 30 Days - Family History Known Family History: Positive: Diabetes - Social History Occupation: Retired Lives: Assisted Living Alcohol Use: None Hx Substance Use: No Substance Use Type: Reports: None Hx Tobacco Use: Yes - not currently Smoking Status (MU): Former Smoker Type: Cigarettes Have You Smoked in the Last Year: No Physical Exam Vital Signs On Initial Exam: Initial Vitals Temp Pulse Resp BP Pulse Ox 97.8 F 65 16 158/56 98 11/15/17 09:25 11/15/17 09:25 11/15/17 09:25 11/15/17 09:25 11/15/17 09:25 Diagnostics - Vital Signs Vital Signs Temp Pulse Resp BP Pulse Ox 11/15/17 09:25 97.8 F 65 16 158/56 98 - Laboratory Lab Results: Lab Results 11/15/17 11/15/17 Range/Units 09:36 11:46 POC Glucose (mg/dL) 69 L 129 H (70-100) mg/dL Lab Statement: Any lab studies that have been ordered have been reviewed, and results considered in the medical decision making process. Re-Evaluation - Re-Evaluation First Eval Change: Improved - blood glucose 129 - appears well, alert and oriented x 3 Second Eval Change: Improved - blood glucose 127 - appears well - alert and oriented - sitting comfortably on stretcher, reading magazine Diabetic Course/Dx - Course Course Of Treatment: Pt woke w/ low blood glucose this morning at 77 then was given - Diagnoses Provider Diagnoses: Hypoglycemia Discharge - Discharge Plan Condition: Stable Disposition: HOME Patient Education Materials: Hypoglycemia in a Person with Diabetes (ED) Referrals: Kami Bob MD [Primary Care Provider] - Additional Instructions: Your blood glucose was low this morning and you received your diabetes medications anyway without eating breakfast. This caused you to feel tired and staff noticed you were not responding well. You shared today here that you did not have a nighttime snack last night and perhaps this caused you to have a low blood sugar this morning. If your morning blood sugar is low in the future, you should not take certain glucose lowering medications, especially glipizide, lantus. You may discuss with your PCP in further detail how to better manage this should you have low blood sugar in the future so staff does not overmedicate you (ie. set a range, decide which medications you may take and not take when blood sugar is low, etc). Call today to schedule an appointment for close follow-up regarding this matter - they may make a recommendation of "low range" over the phone and decide which meds are safe to take or not during this episode. If you are unable to reach your PCP today for these guidelines, it is advised that you avoid lantus and glipizide if your fasting blood glucose is <100 (ie. prior to eating). *If you feel worse in the meantime, return to the ED.
[2017-11-15 14:21] VITALS: BP 160/62
== END 2017-11-15 14:20 | disposition home or self-care (01) ==
LOC: ED 09:19
DX: E11.649 Type 2 diabetes mellitus with hypoglycemia without coma (principal); Z87.891 Personal history of nicotine dependence; Z88.3 Allergy status to other anti-infective agents; Z88.0 Allergy status to penicillin
CPT/HCPCS: 99282

== ENCOUNTER 2017-11-20 15:00 | Emergency (ER) | payer MEDICARE, MEDICAID ==
[2017-11-20] MEDS ORDERED: Albuterol/Ipratropium NEB.SOL* Albuterol 2.5 MG/Ipratropium 0.5 MG 3 ML INH ONE (16:16)
[2017-11-20] MEDS ORDERED: methylPREDNISolone 125 MG* 2 ML VIAL IV ONE (16:16)
--- NOTE | 2017-11-20 17:12 | RAD ---
INDICATION: Left femoral injury. Fall. COMPARISON: None TECHNIQUE: AP and lateral views were obtained. FINDINGS: There is no acute fracture. There is underlying osteopenia. There is osteoarthritis about the knee. There are vascular calcifications. IMPRESSION: NO ACUTE FRACTURE
--- NOTE | 2017-11-20 17:13 | RAD ---
INDICATION: Right femoral injury. Fall. COMPARISON: None TECHNIQUE: AP and lateral views were obtained. FINDINGS: There is osteopenia. There is no acute bony change. There are vascular calcifications. IMPRESSION: NO ACUTE FRACTURE
--- NOTE | 2017-11-20 17:14 | RAD ---
INDICATION: Fall. Pain. COMPARISON: None TECHNIQUE: A single AP view of the pelvis is submitted. FINDINGS: Osseous structures: The bony structures are osteopenic. There is degenerative change of the lower lumbar spine SI joints and symphysis: There is no diastases of the SI joints or symphysis. There is osteitis of the symphysis pubis Soft tissues: There are vascular calcifications Other: None IMPRESSION: NO ACUTE BONY FINDINGS.
--- NOTE | 2017-11-20 17:15 | RAD ---
INDICATION: Left lower extremity injury COMPARISON: None TECHNIQUE: AP and lateral views were obtained. FINDINGS: There is underlying osteopenia. There is no acute bony change. There is osteoarthritis about the knee There are vascular calcifications. There is dependent edema. IMPRESSION: NO ACUTE BONY FINDINGS.
--- NOTE | 2017-11-20 17:16 | RAD ---
INDICATION: Right lower extremity injury COMPARISON: None TECHNIQUE: AP and lateral views were obtained. FINDINGS: There is osteopenia. There is no acute bony change. There is a remote distal tibial diaphyseal fracture with postoperative changes. There is a remote distal fibular fracture as well. There are vascular calcifications.. IMPRESSION: NO ACUTE FRACTURE.
--- NOTE | 2017-11-20 17:18 | RAD ---
INDICATION: Fall. Tenderness. COMPARISON: August 19, 2017 TECHNIQUE: An AP seated portable view obtained at 1712 hours is submitted. FINDINGS: Bones/Soft Tissues: There are no acute bony findings. There is sternotomy. There is a right-sided cardiac pacemaker. There is prior valvular surgery. Cardiomediastinal: The cardiomediastinal silhouette is normal. Lungs: There are no infiltrates. Pleura: There are no pleural effusions. Other: None IMPRESSION: POSTOPERATIVE CHANGE. NO ACTIVE DISEASE.
[2017-11-20 17:30] LABS: ABS Basophils 0 10^3/ul (0-0.2); ABS Eosinophils 0.4 10^3/ul (0-0.6); ABS Lymphocytes 1.3 10^3/ul (1.0-4.8); ABS Monocytes 0.8 10^3/ul (0-0.8); ABS Neutrophils 3.7 10^3/ul (1.5-7.7); ABS Nucleated RBC 0 10^3/ul; Eosinophil % 5.6 % (0-6); Hematocrit 41 % (35-47); Hemoglobin 13.9 g/dl (12.0-16.0); Lymphocyte % 21.1 % (25-47); Mean Corpuscular HGB Conc 34 g/dl (31-36); Mean Corpuscular Hemoglobin 32 pg (27-31); Mean Corpuscular Volume 94 fL (80-97); Mean Platelet Volume 8 um3 (7.4-10.4); Nucleated Red Blood Cells % 0; Platelet Count 203 10^3/ul (150-450); Red Blood Count 4.39 10^6/ul (4.0-5.4); Red Cell Distribution Width 14 % (10.5-15); White Blood Count 6.3 10^3/ul (3.5-10.8)
[2017-11-20 17:41] LABS: INR 0.9 (0.77-1.02)
[2017-11-20 17:47] LABS: EGFR Non-African American 45.3 (>60)
[2017-11-20] MEDS ORDERED: predniSONE TAB* 20 MG PO ONE (18:01)
[2017-11-20] MEDS ORDERED: Albuterol/Ipratropium NEB.SOL* Albuterol 2.5 MG/Ipratropium 0.5 MG 3 ML ONE (19:09)
--- NOTE | 2017-11-20 20:38 | ED ---
Janee Zuleta Julia, scribed for Sadiq Gómez on 11/20/17 at 1616 . Lower Extremity - HPI Summary HPI Summary: This patient is a 87 year old F BIBA to [facility] with a chief complaint of worsening bilateral knee pain and edema s/p fall about a week ago. Patient reports she fell forward while using her walker and feel onto both knees. Patient reports cough for the past two weeks. The patient rates the pain 8/10 in severity. Symptoms aggravated by movement and weight bearing. - History of Current Complaint Chief Complaint: EDExtremityLower Stated Complaint: KNEE PAIN Time Seen by Provider: 11/20/17 16:06 Hx Obtained From: Patient Mechanism Of Injury: Fall From A Standing Position Onset of Pain: Prior to Arrival Onset/Duration: Weeks Severity Initially: Mild Severity Currently: Moderate Pain Intensity: 8 Pain Scale Used: 0-10 Numeric Timing: Constant Location: Is Discrete @ - bilateral knees Associated Signs And Symptoms: Positive: Swelling Aggravating Factor(s): Movement, Weight Bearing - Allergies/Home Medications Allergies/Adverse Reactions: Allergies Allergy/AdvReac Type Severity Reaction Status Date / Time levofloxacin Allergy Unknown Verified 11/20/17 17:57 Reaction Details Penicillins Allergy Hallucinati Verified 11/20/17 17:58 ons PMH/Surg Hx/FS Hx/Imm Hx Endocrine/Hematology History: Reports: Hx Diabetes - on oral meds and insulin, Hx Thyroid Disease - hypothyroidism hx Cardiovascular History: Reports: Hx Congestive Heart Failure, Hx Hypercholesterolemia, Hx Hypertension, Hx Pacemaker/ICD, Hx Syncope Respiratory History: Reports: Hx Asthma, Hx Chronic Obstructive Pulmonary Disease (COPD), Other Respiratory Problems/Disorders - PNA GI History: Reports: Hx Gastroesophageal Reflux Disease History: Denies: Hx Dialysis, Hx Renal Disease Musculoskeletal History: Reports: Hx Arthritis Sensory History: Reports: Hx Cataracts - removed, Hx Contacts or Glasses Denies: Hx Deafness Opthamlomology History: Reports: Hx Cataracts - removed, Hx Contacts or Glasses - Cancer History Cancer Type, Location and Year: 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, surgically removed, per pt Hx Chemotherapy: No Hx Palliative Cancer Treatment: No - Surgical History Surgery Procedure, Year, and Place: PACEMAKER, OPEN HEART SURGERY Hx Anesthesia Reactions: No - Immunization History Date of Tetanus Vaccine: unknown Date of Influenza Vaccine: unknown Infectious Disease History: Yes Infectious Disease History: Reports: Hx Tuberculosis - pediatric Denies: Traveled Outside the [place] in Last 30 Days - Family History Known Family History: Positive: Diabetes - Social History Alcohol Use: Rare Hx Substance Use: No Substance Use Type: Reports: None Hx Tobacco Use: Yes - not currently Smoking Status (MU): Former Smoker Type: Cigarettes Have You Smoked in the Last Year: No Review of Systems Positive: Cough Positive: Myalgia, Edema All Other Systems Reviewed And Are Negative: Yes Physical Exam - Summary Physical Exam Summary: Appearance: Well appearing, no pain distress Skin: warm, dry, reflects adequate perfusion Head/face: normal Eyes: EOMI, JUAN PABLO ENT: normal Neck: supple, non-tender Respiratory: rhonchi on R, breath sounds present Cardiovascular: RRR, pulses symmetrical Abdomen: non-tender, soft Bowel: present Musculoskeletal: bilateral LE tenderness strength/ROM intact Neuro: normal, sensory motor intact, A&Ox3 Triage Information Reviewed: Yes Vital Signs On Initial Exam: Initial Vitals Temp Pulse Resp BP Pulse Ox 97.6 F 74 20 130/54 98 11/20/17 15:13 11/20/17 15:13 11/20/17 15:13 11/20/17 15:13 11/20/17 15:13 Vital Signs Reviewed: Yes Diagnostics - Vital Signs Vital Signs Temp Pulse Resp BP Pulse Ox 11/20/17 15:13 97.6 F 74 20 130/54 98 - Laboratory Lab Results: Lab Results 11/20/17 11/20/17 11/20/17 Range/Units 17:15 17:15 17:15 WBC 6.3 (3.5-10.8) 10^3/ul RBC 4.39 (4.0-5.4) 10^6/ul Hgb 13.9 (12.0-16.0) g/dl Hct 41 (35-47) % MCV 94 (80-97) fL MCH 32 H (27-31) pg MCHC 34 (31-36) g/dl RDW 14 (10.5-15) % Plt Count 203 (150-450) 10^3/ul MPV 8 (7.4-10.4) um3 Neut % (Auto) 59.1 (38-83) % Lymph % (Auto) 21.1 L (25-47) % [place] % (Auto) 13.5 H (1-9) % Eos % (Auto) 5.6 (0-6) % Baso % (Auto) 0.7 (0-2) % Absolute Neuts (auto) 3.7 (1.5-7.7) 10^3/ul Absolute Lymphs (auto) 1.3 (1.0-4.8) 10^3/ul Absolute Monos (auto) 0.8 (0-0.8) 10^3/ul Absolute Eos (auto) 0.4 (0-0.6) 10^3/ul Absolute Basos (auto) 0 (0-0.2) 10^3/ul Absolute Nucleated RBC 0 10^3/ul Nucleated RBC % 0 INR (Anticoag Therapy) (0.77-1.02) Sodium 135 (133-145) mmol/L Potassium 4.1 (3.5-5.0) mmol/L Chloride 99 L (101-111) mmol/L Carbon Dioxide 29 (22-32) mmol/L Anion Gap 7 (2-11) mmol/L BUN 25 H (6-24) mg/dL Creatinine 1.14 H (0.51-0.95) mg/dL Est GFR ( Amer) 58.3 (>60) Est GFR (Non-Af Amer) 45.3 (>60) BUN/Creatinine Ratio 21.9 H (8-20) Glucose 137 H (70-100) mg/dL Lactic Acid (0.5-2.0) mmol/L Calcium 9.9 (8.6-10.3) mg/dL Total Bilirubin 0.40 (0.2-1.0) mg/dL AST 20 (13-39) U/L ALT 17 (7-52) U/L Alkaline Phosphatase 81 (34-104) U/L Troponin I 0.00 (<0.04) ng/mL B-Natriuretic Peptide 45 ( - 100) pg/mL Total Protein 7.5 (6.4-8.9) g/dL Albumin 4.1 (3.2-5.2) g/dL Globulin 3.4 (2-4) g/dL Albumin/Globulin Ratio 1.2 (1-3) 11/20/17 11/20/17 Range/Units 17:15 17:15 WBC (3.5-10.8) 10^3/ul RBC (4.0-5.4) 10^6/ul Hgb (12.0-16.0) g/dl Hct (35-47) % MCV (80-97) fL MCH (27-31) pg MCHC (31-36) g/dl RDW (10.5-15) % Plt Count (150-450) 10^3/ul MPV (7.4-10.4) um3 Neut % (Auto) (38-83) % Lymph % (Auto) (25-47) % [place] % (Auto) (1-9) % Eos % (Auto) (0-6) % Baso % (Auto) (0-2) % Absolute Neuts (auto) (1.5-7.7) 10^3/ul Absolute Lymphs (auto) (1.0-4.8) 10^3/ul Absolute Monos (auto) (0-0.8) 10^3/ul Absolute Eos (auto) (0-0.6) 10^3/ul Absolute Basos (auto) (0-0.2) 10^3/ul Absolute Nucleated RBC 10^3/ul Nucleated RBC % INR (Anticoag Therapy) 0.90 (0.77-1.02) Sodium (133-145) mmol/L Potassium (3.5-5.0) mmol/L Chloride (101-111) mmol/L Carbon Dioxide (22-32) mmol/L Anion Gap (2-11) mmol/L BUN (6-24) mg/dL Creatinine (0.51-0.95) mg/dL Est GFR ( Amer) (>60) Est GFR (Non-Af Amer) (>60) BUN/Creatinine Ratio (8-20) Glucose (70-100) mg/dL Lactic Acid 2.2 H* (0.5-2.0) mmol/L Calcium (8.6-10.3) mg/dL Total Bilirubin (0.2-1.0) mg/dL AST (13-39) U/L ALT (7-52) U/L Alkaline Phosphatase (34-104) U/L Troponin I (<0.04) ng/mL B-Natriuretic Peptide ( - 100) pg/mL Total Protein (6.4-8.9) g/dL Albumin (3.2-5.2) g/dL Globulin (2-4) g/dL Albumin/Globulin Ratio (1-3) Result Diagrams: 11/20/17 17:15 11/20/17 17:15 Lab Statement: Any lab studies that have been ordered have been reviewed, and results considered in the medical decision making process. - Radiology RLE Radiology Interpretation Completed By: Radiologist - NO ACUTE FRACTURE. ED Physician has reviewed this report. LLE Radiology Interpretation Completed By: Radiologist - NO ACUTE BONY FINDINGS. ED Physician has reviewed this report. R Femur Radiology Interpretation Completed By: Radiologist - NO ACUTE FRACTURE. ED Physician has reviewed this report. L Femur Radiology Interpretation Completed By: Radiologist - NO ACUTE FRACTURE. ED Physician has reviewed this report. Pelvis Radiology Interpretation Completed By: Radiologist - NO ACUTE BONY FINDINGS. ED Physician has reviewed this report. CXR Radiology Interpretation Completed By: Radiologist - POSTOPERATIVE CHANGE. NO ACTIVE DISEASE. ED Physician has reviewed this report. - EKG 1734 Cardiac Rate: NL - 64 BPM EKG Rhythm: Sinus Rhythm EKG Interpretation: RBBB Lower Extremity Course/Dx - Course Course Of Treatment: Patient presents with bilateral knee pain and swelling after a fall about one week ago. Patient also compains of cough for the past two weeks. X-Rays of the bilateral knees, femurs, and pelvis reveal no fracture or other acute findings. CXR and EKG is of no acute concern. Bloodwork is collected revealinga lactic acid of 2.2. Patient is givn Prednisone, Solu-Medrol , and 2 nebulizer treatments. - Diagnoses Differential Diagnosis/HQI/PQRI: Positive: Contusion, Dislocation, Fracture ( Closed), Sprain, Strain Provider Diagnoses: Bilateral knee pain, Falls Discharge - Discharge Plan Condition: Stable Disposition: HOME Patient Education Materials: Knee Pain (ED), Fall Prevention (ED) Referrals: Kami Bob MD [Primary Care Provider] - If Needed The documentation as recorded by the Janee galeana Julia accurately reflects the service I personally performed and the decisions made by Rico olivas Emmanuel.
[2017-11-20 20:56] VITALS: BP 151/65
== END 2017-11-20 20:55 | disposition home or self-care (01) ==
LOC: ED 15:00
DX: M25.562 Pain in left knee (principal); M25.561 Pain in right knee; R29.6 Repeated falls; I45.10 Unspecified right bundle-branch block; E11.9 Type 2 diabetes mellitus without complications; Z79.4 Long term (current) use of insulin; Z79.84 Long term (current) use of oral hypoglycemic drugs; E03.9 Hypothyroidism, unspecified; I11.0 Hypertensive heart disease with heart failure; I50.9 Heart failure, unspecified; Z95.810 Presence of automatic (implantable) cardiac defibrillator; E78.00 Pure hypercholesterolemia, unspecified; J44.9 Chronic obstructive pulmonary disease, unspecified; K21.9 Gastro-esophageal reflux disease without esophagitis; Z88.1 Allergy status to other antibiotic agents; Z88.0 Allergy status to penicillin; Z87.891 Personal history of nicotine dependence
CPT/HCPCS: 36415; 71045; 72170; 80053; 83605; 83880; 84484; 85025; 85610; 93005; 94640; 96374; 99283; A9270-GY; J7512

== ENCOUNTER 2018-08-02 11:03 | Emergency (ER) | payer MEDICARE, MEDICAID ==
--- NOTE | 2018-08-02 11:25 | ED ---
Skin Complaint - HPI Summary HPI Summary: Ms. Torres was sent in for a rash on her LLQ. She describes it as itchy and painful and it extends to her back. She also C/O a productive cough for several days and some dysuria. She denies SOB or CP. - History of Current Complaint Chief Complaint: EDGeneral Time Seen by Provider: 08/02/18 11:05 Stated Complaint: GENERAL ILLNESS Hx Obtained From: Patient, Medical Records Hx From Patient Unobtainable Due To: Dementia Onset/Duration: Still Present Timing: Constant Onset Severity: Moderate Current Severity: Moderate Pain Intensity: 3 Aggravating Symptom(s): Nothing Alleviating Symptom(s): Nothing Associated Signs & Symptoms: Cough - Allergy/Home Medications Allergies/Adverse Reactions: Allergies Allergy/AdvReac Type Severity Reaction Status Date / Time levofloxacin Allergy Unknown Verified 11/20/17 17:57 Reaction Details Penicillins Allergy Hallucinati Verified 11/20/17 17:58 ons PMH/Surg Hx/FS Hx/Imm Hx Endocrine/Hematology History: Reports: Hx Diabetes - on oral meds and insulin, Hx Thyroid Disease - hypothyroidism hx Cardiovascular History: Reports: Hx Congestive Heart Failure, Hx Hypercholesterolemia, Hx Hypertension, Hx Pacemaker/ICD, Hx Syncope Respiratory History: Reports: Hx Asthma, Hx Chronic Obstructive Pulmonary Disease (COPD), Other Respiratory Problems/Disorders - PNA GI History: Reports: Hx Gastroesophageal Reflux Disease History: Denies: Hx Dialysis, Hx Renal Disease Musculoskeletal History: Reports: Hx Arthritis Sensory History: Reports: Hx Cataracts - removed, Hx Contacts or Glasses Denies: Hx Deafness Opthamlomology History: Reports: Hx Cataracts - removed, Hx Contacts or Glasses - Cancer History Cancer Type, Location and Year: 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, surgically removed, per pt Hx Chemotherapy: No Hx Palliative Cancer Treatment: No - Surgical History Surgery Procedure, Year, and Place: PACEMAKER, OPEN HEART SURGERY Hx Anesthesia Reactions: No - Immunization History Date of Tetanus Vaccine: unknown Date of Influenza Vaccine: unknown Infectious Disease History: No Infectious Disease History: Reports: Hx Tuberculosis - pediatric Denies: Traveled Outside the [place] in Last 30 Days - Family History Known Family History: Positive: Diabetes - Social History Alcohol Use: Rare Hx Substance Use: No Substance Use Type: Reports: None Hx Tobacco Use: Yes - not currently Smoking Status (MU): Former Smoker Type: Cigarettes Have You Smoked in the Last Year: No Review of Systems Positive: Cough Positive: dysuria All Other Systems Reviewed And Are Negative: Yes Physical Exam - Summary Physical Exam Summary: She is nontoxic in appearance with stable vital signs. Triage Information Reviewed: Yes Vital Signs On Initial Exam: Initial Vitals Temp Pulse Resp BP Pulse Ox 97.7 F 82 16 216/71 97 08/02/18 11:05 08/02/18 11:05 08/02/18 11:05 08/02/18 11:05 08/02/18 11:05 Vital Signs Reviewed: Yes Completion Of Physical Exam Limited Due To: Dementia Appearance: Positive: Well-Appearing Skin: Positive: Warm - Erythematous, vesicular lesions in LLQ, proximal to those is an area of ecchymosis. Eyes: Positive: Normal ENT: Positive: Normal ENT inspection Neck: Positive: Supple Respiratory/Lung Sounds: Positive: Clear to Auscultation Cardiovascular: Positive: Normal Abdomen Description: Positive: Nontender Bowel Sounds: Positive: Present Musculoskeletal: Positive: Normal Neurological: Positive: Normal Diagnostics - Vital Signs Vital Signs Temp Pulse Resp BP Pulse Ox 08/02/18 11:05 97.7 F 82 16 216/71 97 - Laboratory Lab Statement: Any lab studies that have been ordered have been reviewed, and results considered in the medical decision making process. - Radiology CXR Radiology Interpretation Completed By: Radiologist Summary of Radiographic Findings: No Acute Pathology Course/Dx - Course Course Of Treatment: Ms. Torres appears to have shingles developing on her abdominal wall. She wears a depends and her U/A is grossly positive. She has had negative U/A's recently and I will treat her although I'm not sure if she is symptomatic. She remained stable with normal vitals here. - Diagnoses Provider Diagnoses: UTI (urinary tract infection), Shingles outbreak Discharge - Sign-Out/Discharge Documenting (check all that apply): Patient Departure - Discharge Plan Condition: Stable Disposition: HOME Patient Education Materials: Shingles (ED), Urinary Tract Infection in Women ( ED) Referrals: Kami Bob MD [Primary Care Provider] - - Billing Disposition and Condition Condition: STABLE Disposition: Home
--- NOTE | 2018-08-02 12:42 | RAD ---
INDICATION: Cough COMPARISON: Most recent chest x-rays dated May 15, 2018 TECHNIQUE: PA and lateral views of the chest were obtained. FINDINGS: Again seen is a right upper chest cardiac pacemaker with 2 leads overlying the heart and sternotomy wires. The heart and mediastinum are normal in size and contour. The lungs are grossly clear. There is no evidence of large pleural effusion. Visualized bones are normal for the patient's age. There is no radiographic evidence of free air beneath the diaphragm IMPRESSION: No radiographic evidence of acute cardiopulmonary disease.
[2018-08-02 13:21] LABS: Urine Appearance Cloudy; Urine Blood 2+ (Negative); Urine Color Yellow; Urine Ketones Negative (Negative); Urine Protein Negative (Negative); Urine Red Blood Cell 3+(>10/hpf) (Absent); Urine Specific Gravity 1.005 (1.010-1.030); Urine Urobilinogen Negative (Negative); Urine White Blood Cell 3+(>20/hpf) (Absent)
[2018-08-02 14:19] VITALS: BP 189/89
== END 2018-08-02 14:16 | disposition home or self-care (01) ==
LOC: ED 11:03
DX: B02.9 Zoster without complications (principal); N39.0 Urinary tract infection, site not specified; E11.9 Type 2 diabetes mellitus without complications; Z79.4 Long term (current) use of insulin; Z79.84 Long term (current) use of oral hypoglycemic drugs; Z95.810 Presence of automatic (implantable) cardiac defibrillator; Z88.1 Allergy status to other antibiotic agents; Z88.0 Allergy status to penicillin; Z87.891 Personal history of nicotine dependence
CPT/HCPCS: 71046; 81003; 81015; 87077; 87086; 87186; 99283

== ENCOUNTER 2019-04-07 11:23 | Emergency (ER) | payer MEDICARE, MEDICAID ==
--- OUTSIDE RECORDS SUMMARY | 2019-04-07 11:40 | XMS REPORT | Continuity of Care Document ---
:1930 External Reference #:[id number] Author Name Kat aRmirez Care Team Providers Name Role Phone Kami Bob M.D. Primary Care Physician Unavailable Payers Date Identification Numbers Payment Provider Subscriber Policy Number: [id number] Medicare - [facility] Ann Torres PayID: [id number] [address] [place] [address] Policy Number: [id number] Medicaid Ann Torres PayID: [id number] [address] [place] [address] Problems Active Problems Provider Date Dependence on continuous positive airway pressure (CPAP) Onset: ventilation Gastroesophageal reflux disease Onset: Renal failure Onset: Hypothyroidism Onset: Irregular heart beat Onset: Arthritis Onset: Dyslexia Onset: Pure hypercholesterolemia Onset: Type 2 diabetes mellitus Onset: Note: 1980 Asymptomatic coronary heart disease Onset: Essential hypertension Onset: Atrial fibrillation Onset: Anemia Onset: Hyperlipidemia Onset: Nonproliferative diabetic retinopathy Bibiana Uriostegui O.D. 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 Onset: 03/10/2015 degeneration Pseudophakia Bibiana Uriostegui O.D. 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 Onset: 09/15/2015 Other secondary cataract, bilateral Bibiana Uriostegui O.D. Onset: 2015 Mild non-proliferative diabetic Bibiana Uriostegui O.D. 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 Onset: degeneration Vitreous degeneration Bibiana Uriostegui O.D. Onset: 03/21/2017 Memory impairment Onset: Family History Date Family Member(s) Observation Comments Father No Current Problems Mother No Current Problems Social History Type Date Description Comments Sex Unknown Marital Status Legal Status: Work Status Retired ETOH Use Denies alcohol use Tobacco Use Start: Unknown Patient has never smoked Recreational Drug Use Denies Drug Use Smoking Status Reviewed: 03/19/19 Patient has never smoked Allergies, Adverse Reactions, Alerts Active Allergies Reaction Severity Comments Date Adhesives 03/09/2015 Levaquin 03/09/2015 Camphor 03/15/2016 Penicillin 03/15/2016 Medications Active Medications SIG Qnty Indications Ordering Provider Date Mapap Bibiana Henao 09/26/2018 500mg Capsules Maribel Uriostegui Artificial Tears 3 times a day as Bibiana Henao 03/26/2018 0.2-0.2-1% needed Maribel Uriostegui Solution Preservision Areds 2 1 cap by mouth H35.31 Randolph Reeder, 2014 Areds twice a day M.DCarol 2 Capsules Melatonin Unknown 10mg Capsules Levemir FlextoKami Rankin Priti 100Unit/ML Solution Pen-Inject Colace 2 by mouth twice Unknown 100mg Capsules a day Cardizem CD Unknown 240mg Caps ER 24HR Omeprazole Kami Bob 20mg Capsules DR Marcos Metoprolol Tartrate Unknown 50mg Tablets Levemir Flextouch Marleni Izquierdo 30Unit/ML N.P Solution Pen-Inject Ibuprofen Unknown 600mg Tablets Hydrocortisone Acetate Unknown 25mg Suppository Tylenol Unknown 325mg Capsules Ferrous Gluconate Unknown 324(38Fe) mg Tablets Amoxicillin Unknown 500mg Capsules Cpap at bedtime Unknown N/A N/A Magnesium Oxide Unknown (Antacid) 400mg Capsules Susannah Chatman 100mg Tablets M.D. Pravastatin Sodium Unknown 40mg Tablets Calcium 600 + D Unknown [id number] Tablets Aspirin Unknown 81mg Tablets Valsartan Unknown 320mg Tablets Fluticasone Propionate Unknown 50mcg/Act Suspension Advair Diskus Unknown 100-50mcg/Dose Aerosol Multi Vitamin Daily Unknown Tablets Metformin HCL Unknown 1000mg Tablets Levothyroxine Sodium Unknown 88mcg Tablets History Medications Artificial Tears twice a day as Bibinaa Uriostegui, 03/09/2015 - needed O.D. 03/14/2016 0.2-0.2-1% Solution Procedures Date Code Description Status 03/19/2019 70576 Scanning Computerized Opthalmic Diagnostic Posterior Seg Completed Retina 03/19/2019 37212 Est Patient Comprehensive Exam Completed 09/26/2018 79604 Est Patient Comprehensive Exam Completed 03/27/2018 71756 Est Patient Comprehensive Exam Completed 09/12/2017 99597 Scanning Computerized Opthalmic Diagnostic Posterior Seg Completed Retina 09/12/2017 53393 Est Patient Comprehensive Exam Completed 03/21/2017 39297 Est Patient Comprehensive Exam Completed 09/20/2016 83280 Scanning Computerized Opthalmic Diagnostic Posterior Seg Completed Retina 09/20/2016 15699 Est Patient Comprehensive Exam Completed 03/15/2016 28212 Determination Of Refractive State Completed 03/15/2016 80596 Est Patient Comprehensive Exam Completed 09/15/2015 43343 Est Patient Comprehensive Exam Completed 09/15/2015 37634 Scanning Computerized Opthalmic Diagnostic Posterior Seg Completed Retina 03/10/2015 94486 Determination Of Refractive State Completed 03/10/2015 34749 Est Patient Comprehensive Exam Completed 09/09/2014 04419 Scanning Computerized Opthalmic Diagnostic Posterior Seg Completed Retina 09/09/2014 63862 Est Patient Comprehensive Exam Completed 03/18/2014 53967 Est Patient Comprehensive Exam Completed 09/17/2013 22673 Scanning Computerized Opthalmic Diagnostic Posterior Seg Completed Retina 09/17/2013 37070 Est Patient Comprehensive Exam Completed 03/19/2013 12992 Est Patient Comprehensive Exam Completed 09/15/2012 09261 Est Patient Comprehensive Exam Completed 09/10/2011 32390 Determination Of Refractive State Completed 09/10/2011 92836 New Patient Comprehensive Exam Completed Plan of Treatment Future Appointment(s):09/17/2019 10:15 am - Bibiana Uriostegui O.D. at Randolph Reeder MD, 03/19/2019 - Bibiana Uriostegui O.D.E11.3293 Type 2 diabetes mellitus with mild nonproliferative diabeticComments:Dr. Uriostegui can detect diabetic changes in your eyes. Proper control of your diabetes is important for the health of your eyes. It is important that you keep all of your follow up appointments.Follow up:6 Month Follow Up OCT MAC You can expect to have your eyes dilated at your next visit. If Dr. Uriostegui orders any additional testing, it may require extra time. We recommend that you bring sunglasses,as dilation drops often make you light sensitive until they wear off. We always recommend you bring someone to drive you home if you are uncomfortable driving with your eyes dilated. If you have any questions before your next visit, feel free to call our office at .H33.3130 Nonexudative age-related macular degeneration, bilateral, eaZ96.1 Presence of intraocular lensComments:The artificial lens implants in both eyes appear to be stable at this time.H43.813 Vitreous degeneration, bilateral
[2019-04-07] MEDS ORDERED: Ondansetron INJ* 2 MG/ML VIAL IV ONE (11:49)
[2019-04-07] MEDS ORDERED: NS 0.9% 1000 ML** 1,000 ML IV ONE (11:49)
[2019-04-07 12:16] LABS: ABS Basophils 0.1 10^3/ul (0-0.2); ABS Eosinophils 0.3 10^3/ul (0-0.6); ABS Lymphocytes 1.3 10^3/ul (1.0-4.8); ABS Monocytes 0.8 10^3/ul (0-0.8); ABS Neutrophils 4.7 10^3/ul (1.5-7.7); Eosinophil % 3.7 %; Hematocrit 41 % (35-47); Hemoglobin 14.2 g/dL (12.0-16.0); INR 0.99 (0.82-1.09); Lymphocyte % 17.6 %; Mean Corpuscular HGB Conc 35 g/dL (31-36); Mean Corpuscular Hemoglobin 32 pg (27-31); Mean Corpuscular Volume 91 fL (80-97); Mean Platelet Volume 7.5 fL (7.4-10.4); Platelet Count 220 10^3/uL (150-450); Red Blood Count 4.51 10^6 /uL (3.70-4.87); Red Cell Distribution Width 14 % (10-15); White Blood Count 7.1 10^3/uL (3.5-10.8)
[2019-04-07 12:36] LABS: Albumin/Globulin Ratio 1.3 (1-3); BUN/Creatinine Ratio 33.3 (8-20); C Reactive Protein 7.79 mg/L (<8.01); Calcium 9.8 mg/dL (8.6-10.3); EGFR African American 88.7 (>60); EGFR Non-African American 73.3 (>60); Globulin 3.2 g/dL (2-4); Magnesium 1.8 mg/dL (1.9-2.7); Potassium 3.7 mmol/L (3.5-5.0); Total Bilirubin 0.5 mg/dL (0.2-1.0); Total Protein 7.2 g/dL (6.4-8.9)
--- NOTE | 2019-04-07 12:53 | ED ---
Nausea/Vomiting/Diarrhea HPI - HPI Summary HPI Summary: Patient is an 88 year old female presents to the ED with nausea, vomiting, diarrhea. She states she has this every once in a while N intermittently, however yesterday was more than normal. She states she was unable to get to the restroom and she ended up having diarrhea on the floor of her bathroom. She states she is weak and fatigued. She states she is feeling more improved today. She does have a history of PNA and UTIs. She denies eating anything normal. Her appetite is preserved. Denies any fever, sweats, chills. She states she has been sleeping well. Denies CP or SOB. Denies any back pain or urinary symptoms. She does endorse a recent cough. She denies any abdominal pain. - History of Current Complaint Chief Complaint: EDNauseaVomitDiarrh Stated Complaint: N/V/D PER EMS Time Seen by Provider: 04/07/19 11:36 Hx Obtained From: Patient ?: No Onset/Duration: Sudden Onset Timing: Constant Severity Initially: Moderate Severity Currently: Moderate Pain Intensity: 0 Pain Scale Used: 0-10 Numeric Aggravating Factor(s): Nothing Alleviating Factor(s): Nothing Vomiting Frequency: Every 1-2 hours Nausea/Vomiting Duration: 0-12 hours Diarrhea Presence: No Diarrhea Frequency: Every 3-4 hours Diarrhea Duration: 0-12 hours - Risk Factors Influenza Risk Factors: Negative Surgical Obstruction Risk Factor(s): Negative - Allergies/Home Medications Allergies/Adverse Reactions: Allergies Allergy/AdvReac Type Severity Reaction Status Date / Time levofloxacin Allergy Unknown Verified 11/20/17 17:57 Reaction Details Penicillins Allergy Hallucinati Verified 11/20/17 17:58 ons Home Medications: Home Medications Calcium Polycarbophil [Fiber Lax] 625 mg PO DAILY 04/07/19 [History Confirmed ] Guaifenesin/DM (SUGAR FREE)* [Diabetic Tussin DM*] 10 ml PO Q6H PRN 04/07/19 [ History Confirmed 04/07/19] Insulin Detemir [Levemir Flextouch] 33 units SUBCUT DAILY 04/07/19 [History Confirmed 04/07/19] Melatonin 10 mg PO BEDTIME PRN 04/07/19 [History Confirmed 04/07/19] Memantine TAB* [Namenda TAB*] 5 mg PO BID 04/07/19 [History Confirmed 04/07/19] Omeprazole (Nf) [Prilosec (NF)] 40 mg PO DAILY 04/07/19 [History Confirmed 04/07] Valsartan TAB* [Diovan TAB*] 320 mg PO DAILY 04/07/19 [History Confirmed ] PMH/Surg Hx/FS Hx/Imm Hx Previously Healthy: Yes Endocrine/Hematology History: Reports: Hx Diabetes - on oral meds and insulin, Hx Thyroid Disease - hypothyroidism hx Cardiovascular History: Reports: Hx Congestive Heart Failure, Hx Hypercholesterolemia, Hx Hypertension, Hx Pacemaker/ICD, Hx Syncope Respiratory History: Reports: Hx Asthma, Hx Chronic Obstructive Pulmonary Disease (COPD), Other Respiratory Problems/Disorders - PNA GI History: Reports: Hx Gastroesophageal Reflux Disease History: Denies: Hx Dialysis, Hx Renal Disease Musculoskeletal History: Reports: Hx Arthritis Sensory History: Reports: Hx Cataracts - removed, Hx Contacts or Glasses Denies: Hx Deafness Opthamlomology History: Reports: Hx Cataracts - removed, Hx Contacts or Glasses - Cancer History Cancer Type, Location and Year: 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, surgically removed, per pt Hx Chemotherapy: No Hx Palliative Cancer Treatment: No - Surgical History Surgery Procedure, Year, and Place: PACEMAKER, OPEN HEART SURGERY Hx Anesthesia Reactions: No - Immunization History Date of Tetanus Vaccine: unknown Date of Influenza Vaccine: unknown Hx Pertussis Vaccination: No Immunizations Up to Date: Yes Infectious Disease History: No Infectious Disease History: Reports: Hx Tuberculosis - pediatric Denies: Traveled Outside the [place] in Last 30 Days - Family History Known Family History: Positive: Diabetes - Social History Occupation: Unemployed Lives: With Family Alcohol Use: Rare Hx Substance Use: No Substance Use Type: Reports: None Hx Tobacco Use: Yes - not currently Smoking Status (MU): Former Smoker Type: Cigarettes Have You Smoked in the Last Year: No Review of Systems Constitutional: Negative Negative: Fever, Chills, Fatigue Negative: Palpitations, Chest Pain Negative: Shortness Of Breath, Cough Genitourinary: Negative Positive: no symptoms reported, see HPI Negative: Arthralgia, Myalgia Skin: Negative Neurological: Negative All Other Systems Reviewed And Are Negative: Yes Physical Exam Triage Information Reviewed: Yes Vital Signs On Initial Exam: Initial Vitals Temp Pulse Resp BP Pulse Ox 98.2 F 79 16 153/92 92 04/07/19 11:32 04/07/19 11:32 04/07/19 11:32 04/07/19 11:32 04/07/19 11:32 Vital Signs Reviewed: Yes Appearance: Positive: Well-Appearing, Well-Nourished Skin: Positive: Warm, Skin Color Reflects Adequate Perfusion Eyes: Positive: EOMI, JUAN PABLO, Conjunctiva Clear Neck: Positive: Supple, No Lymphadenopathy Respiratory/Lung Sounds: Positive: Clear to Auscultation, Breath Sounds Present Cardiovascular: Positive: RRR, Pulses are Symmetrical in both Upper and Lower Extremities Musculoskeletal: Positive: Normal, Strength/ROM Intact Neurological: Positive: Sensory/Motor Intact, Alert, Oriented to Person Place, Time, Speech Normal Psychiatric: Positive: Affect/Mood Appropriate - [place] Coma Scale Best Eye Response: 4 - Spontaneous Best Motor Response: 6 - Obeys Commands Best Verbal Response: 5 - Oriented Coma Scale Total: 15 Diagnostics - Vital Signs Vital Signs Temp Pulse Resp BP Pulse Ox 04/07/19 11:32 98.2 F 79 16 153/92 92 - Laboratory Lab Results: Lab Results 04/07/19 04/07/19 04/07/19 Range/Units 12:00 12:00 12:00 WBC 7.1 (3.5-10.8) 10^3/uL RBC 4.51 (3.70-4.87) 10^6 /uL Hgb 14.2 (12.0-16.0) g/dL Hct 41 (35-47) % MCV 91 (80-97) fL MCH 32 H (27-31) pg MCHC 35 (31-36) g/dL RDW 14 (10-15) % Plt Count 220 (150-450) 10^3/uL MPV 7.5 (7.4-10.4) fL Neut % (Auto) 66.3 % Lymph % (Auto) 17.6 % Island % (Auto) 11.6 % Eos % (Auto) 3.7 % Baso % (Auto) 0.8 % Absolute Neuts (auto) 4.7 (1.5-7.7) 10^3/ul Absolute Lymphs (auto) 1.3 (1.0-4.8) 10^3/ul Absolute Monos (auto) 0.8 (0-0.8) 10^3/ul Absolute Eos (auto) 0.3 (0-0.6) 10^3/ul Absolute Basos (auto) 0.1 (0-0.2) 10^3/ul Absolute Nucleated RBC 0.0 10^3/ul Nucleated RBC % 0.0 INR (Anticoag Therapy) (0.82-1.09) Sodium 137 (135-145) mmol/L Potassium 3.7 (3.5-5.0) mmol/L Chloride 101 (101-111) mmol/L Carbon Dioxide 26 (22-32) mmol/L Anion Gap 10 (2-11) mmol/L BUN 25 H (6-24) mg/dL Creatinine 0.75 (0.51-0.95) mg/dL Est GFR ( Amer) 88.7 (>60) Est GFR (Non-Af Amer) 73.3 (>60) BUN/Creatinine Ratio 33.3 H (8-20) Glucose 158 H (70-100) mg/dL Lactic Acid 1.0 (0.5-2.0) mmol/L Calcium 9.8 (8.6-10.3) mg/dL Magnesium 1.8 L (1.9-2.7) mg/dL Total Bilirubin 0.50 (0.2-1.0) mg/dL AST 19 (13-39) U/L ALT 15 (7-52) U/L Alkaline Phosphatase 99 (34-104) U/L C-Reactive Protein 7.79 (<8.01) mg/L Total Protein 7.2 (6.4-8.9) g/dL Albumin 4.0 (3.2-5.2) g/dL Globulin 3.2 (2-4) g/dL Albumin/Globulin Ratio 1.3 (1-3) Lipase 24 (11.0-82.0) U/L 04/07/19 Range/Units 12:00 WBC (3.5-10.8) 10^3/uL RBC (3.70-4.87) 10^6 /uL Hgb (12.0-16.0) g/dL Hct (35-47) % MCV (80-97) fL MCH (27-31) pg MCHC (31-36) g/dL RDW (10-15) % Plt Count (150-450) 10^3/uL MPV (7.4-10.4) fL Neut % (Auto) % Lymph % (Auto) % Island % (Auto) % Eos % (Auto) % Baso % (Auto) % Absolute Neuts (auto) (1.5-7.7) 10^3/ul Absolute Lymphs (auto) (1.0-4.8) 10^3/ul Absolute Monos (auto) (0-0.8) 10^3/ul Absolute Eos (auto) (0-0.6) 10^3/ul Absolute Basos (auto) (0-0.2) 10^3/ul Absolute Nucleated RBC 10^3/ul Nucleated RBC % INR (Anticoag Therapy) 0.99 (0.82-1.09) Sodium (135-145) mmol/L Potassium (3.5-5.0) mmol/L Chloride (101-111) mmol/L Carbon Dioxide (22-32) mmol/L Anion Gap (2-11) mmol/L BUN (6-24) mg/dL Creatinine (0.51-0.95) mg/dL Est GFR ( Amer) (>60) Est GFR (Non-Af Amer) (>60) BUN/Creatinine Ratio (8-20) Glucose (70-100) mg/dL Lactic Acid (0.5-2.0) mmol/L Calcium (8.6-10.3) mg/dL Magnesium (1.9-2.7) mg/dL Total Bilirubin (0.2-1.0) mg/dL AST (13-39) U/L ALT (7-52) U/L Alkaline Phosphatase (34-104) U/L C-Reactive Protein (<8.01) mg/L Total Protein (6.4-8.9) g/dL Albumin (3.2-5.2) g/dL Globulin (2-4) g/dL Albumin/Globulin Ratio (1-3) Lipase (11.0-82.0) U/L Result Diagrams: 04/07/19 12:00 04/07/19 12:00 Lab Statement: Any lab studies that have been ordered have been reviewed, and results considered in the medical decision making process. Naus/Vom/Diarrhea Course/Dx - Course Course Of Treatment: Patient's evaluated for nausea, vomiting, diarrhea. She states she has had this off-and-on for a long time and this is at her baseline, however since yesterday she has had this more frequently. She feels weak as of this. She has a history of PND and UTIs. Labs obtained show normal white count with an elevated BUN. She is given 1 L normal saline as well as Zofran. She states she is feeling improved. UA shows UTI evidence. Macrobid is given 100 mg twice daily 5 days. She is okay with this plan and discharged. She will eat a bland diet, increase fluids and I have given her Zofran for nausea. She will follow-up with her PCP and or return to the ED for any worsening or changing symptoms. She offers no other complaints or concerns at this time. - Differential Dx/Diagnosis Differential Diagnoses - Female: Other - Nausea, vomiting, diarrhea, gastroenteritis, viral infection, UTI Provider Diagnosis: UTI (urinary tract infection) Condition At Discharge: Stable Discharge - Sign-Out/Discharge Documenting (check all that apply): Patient Departure Patient Received Moderate/Deep Sedation with Procedure: No - Discharge Plan Condition: Stable Disposition: HOME Prescriptions: Nitrofurantoin Monohyd/M-Cryst [Macrobid 100 mg Capsule] 100 mg PO BID #10 cap Ondansetron ODT TAB* [Zofran 4 MG Odt TAB*] 4 mg PO Q6H PRN #12 tab.odt MDD 4 PRN Reason: Nausea Patient Education Materials: Urinary Tract Infection in Women (ED) Referrals: Kami Bob MD [Primary Care Provider] - Additional Instructions: Macrobid twice daily x 5 days Zofran as needed for nausea Try to drink plenty of fluids and rest Eat small meals at a time and eat a bland diet right now - Billing Disposition and Condition Condition: STABLE Disposition: Home
[2019-04-07 14:46] LABS: Urine Appearance Cloudy; Urine Bacteria 1+ (Absent); Urine Bilirubin Negative (Negative); Urine Blood Negative (Negative); Urine Color Yellow; Urine Glucose Negative (Negative); Urine Ketones Negative (Negative); Urine Nitrite Negative (Negative); Urine Protein Negative (Negative); Urine Red Blood Cell 1+(3-5/hpf) (Absent); Urine Specific Gravity 1.006 (1.010-1.030); Urine Urobilinogen Negative (Negative); Urine White Blood Cell 3+(>20/hpf) (Absent)
[2019-04-07] MEDS ORDERED: Nitrofurantoin Macrocrystals* 100 MG CAP PO ONE (15:02)
[2019-04-07 15:37] VITALS: BP 147/88
== END 2019-04-07 15:36 | disposition home or self-care (01) ==
LOC: ED 11:23
DX: N39.0 Urinary tract infection, site not specified (principal); E11.9 Type 2 diabetes mellitus without complications; I50.9 Heart failure, unspecified; I11.0 Hypertensive heart disease with heart failure; E78.00 Pure hypercholesterolemia, unspecified; J44.9 Chronic obstructive pulmonary disease, unspecified; Z88.1 Allergy status to other antibiotic agents; Z88.0 Allergy status to penicillin; Z79.4 Long term (current) use of insulin; Z79.899 Other long term (current) drug therapy; Z95.810 Presence of automatic (implantable) cardiac defibrillator; Z87.891 Personal history of nicotine dependence
CPT/HCPCS: 36415; 71045; 80053; 81003; 81015; 83605; 83690; 83735; 85025; 85610; 86140; 87077; 87086; 87186; 96361; 96374; 99283; A9270-GY; J2405

== ENCOUNTER 2019-10-02 06:29 | Emergency (ER) | payer MEDICARE, MEDICAID ==
--- OUTSIDE RECORDS SUMMARY | 2019-10-02 06:42 | XMS REPORT | Continuity of Care Document ---
:1930 External Reference #:[id number] Author Name Bibiana Uriostegui O.D. Address [address] [place] [address] Care Team Providers Name Role Phone Mallory Felder M.D. 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 Onset: 03/21/2017 Memory impairment Onset: Social History Type Date Description Comments Sex Unknown ETOH Use Denies alcohol use Tobacco Use Start: Unknown Patient has never smoked Recreational Drug Use Denies Drug Use Smoking Status Reviewed: 09/17/19 Patient has never smoked Allergies, Adverse Reactions, Alerts Active Allergies Reaction Severity Comments Date Adhesives 03/09/2015 Levaquin 03/09/2015 Camphor 03/15/2016 Penicillin 03/15/2016 Medications Active Medications SIG Qnty Indications Ordering Provider Date Artificial Tears 3 times a day as Bibiana Henao 03/26/2018 0.2-0.2-1% needed Maribel Uriostegui Solution Preservision Areds 2 1 cap by mouth day H35.31 Randolph Reeder, 2014 Areds twice a day M.D. 2 Capsules Metformin HCL Paulino Kami 1000mg M.D. Tablets Memantine HCL Prosper Borrego NP 5mg Tablets Advair HFA Paulino, Kami 45-21mcg/Act M.D. Aerosol Cartia XT Paulino, Kami 240mg Caps ER M.D. 24HR Melatonin Unknown 10mg Capsules Levemir Flextouch Paulino, Kami M.DCarol 100Unit/ML Solution Pen-Inject Colace 2 by mouth twice Unknown 100mg Capsules a day Omeprazole Paulino, Kami 20mg Capsules DR Marcos Metoprolol Tartrate Unknown 50mg Tablets Levemir Flextouch Marleni Izquierdo 30Unit/ML N.P Solution Pen-Inject Ibuprofen Unknown 600mg Tablets Hydrocortisone Acetate Unknown 25mg Suppository Tylenol Unknown 325mg Capsules Ferrous Gluconate Unknown 324(38Fe) mg Tablets Amoxicillin Unknown 500mg Capsules Cpap at bedtime Unknown N/A N/A Magnesium Oxide Unknown (Antacid) 400mg Capsules Susannah Chatman 100mg Tablets M.DCarol Pravastatin Sodium Unknown 40mg Tablets Calcium 600 + D Unknown [id number] Tablets Aspirin Unknown 81mg Tablets Valsartan Unknown 320mg Tablets Fluticasone Propionate Unknown 50mcg/Act Suspension Multi Vitamin Daily Unknown Tablets Levothyroxine Sodium Unknown 88mcg Tablets Immunizations Description No Information Available Vital Signs Description No Information Available Results Description No Information Available Procedures Date Code Description Status 03/19/2019 51588 Scanning Computerized Opthalmic Diagnostic Posterior Seg Completed Retina 03/19/2019 75893 Est Patient Comprehensive Exam Completed Medical Devices Description No Information Available Encounters Description No Information Available Assessments Date Code Description Provider 09/17/2019 H35.3131 Nonexudative age-related macular Bibiana Uriostegui O.D. degeneration, bilateral, ea 09/17/2019 E11.3293 Type 2 diabetes mellitus with mild Bibiana Uriostegui O.D. nonproliferative diabetic 09/17/2019 Z96.1 Presence of intraocular lens Bibiana Uriostegui O.D. 09/17/2019 H43.813 Vitreous degeneration, bilateral Bibiana Uriostegui O.D. 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 nonproliferative diabetic 03/19/2019 H35.3131 Nonexudative age-related macular Bibiana Uriostegui O.D. degeneration, bilateral, ea 03/19/2019 Z96.1 Presence of intraocular lens Bibiana Uriostegui O.D. 03/19/2019 H43.813 Vitreous degeneration, bilateral Bibiana Uriostegui O.D. Plan of Treatment 09/17/2019 - Bibiana Uriostegui O.D.H35.3131 Nonexudative age-related macular degeneration, bilateral, eaComments:CONTINUE TO TAKE AREDS 2 FORMULA VITAMINSCONTINUE TO CHECK AMSLER GRID TWICE A WEEKFollow up:1 Year Follow Up OCT MAC You can expect to have your eyes dilated at your next visit. If Dr. Uriostegui orders any additional testing, it may require extra time. We recommend that you bring sunglasses, as dilation drops often make you light sensitive until they wear off. We always recommend you bring someone to drive you home if you are uncomfortable driving with your eyes dilated. If you have any questions before your next visit, feel free to call our office at .e11.3293 Type 2 diabetes mellitus with mild nonproliferative jezxayarQ22.1 Presence of intraocular lensComments:The artificial lens implants in both eyes appear to be stable at this time.H43.813 Vitreous degeneration, bilateralComments:You have a Posterior Vitreous Detachment. Please read the pamphlet that was given to you. If you have any changes in your floaters or flashing lights, please contact this office. Functional Status Description No Information Available Mental Status Description No Information Available Referrals Description No Information Available
--- OUTSIDE RECORDS SUMMARY | 2019-10-02 06:42 | XMS REPORT | Continuity of Care Document ---
:1930 External Reference #:[id number] Author Name Gomez Borrego N.P. (transmitted by agent of provider Camila Madrigal) Address 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 Onset: 09/25/2011 Benign essential hypertension Susannah Varela M.D. Onset: 06/26/2011 Obstructive sleep apnea syndrome Florencia Oreilly MD Onset: 08/20/2014 Atrial fibrillation Mallory Felder M.D. Onset: 09/21/2014 Note: paroxysmal Cardiac pacemaker in situ Mallory Felder M.D. Onset: 09/21/2014 Disorder of lung Florencia Oreilly MD Onset: 08/20/2014 Obesity Florencia Oreilly MD Onset: 08/20/2014 Arteriosclerosis of arterial coronary artery Mallory Felder M.D. Onset: 2014 bypass graft History of polyp of colon Susannah Varela M.D. Onset: 09/25/2011 Sinus node dysfunction Mallory Felder M.D. Onset: 09/21/2014 Note: s/p pacemaker Mitral valve disorder Mallory Felder M.D. Onset: 09/21/2014 Right bundle branch block Mallory Felder M.D. Onset: 02/01/2015 Mixed incontinence Nadeem Lowe NP Onset: 02/24/2015 Note: States she will loose urine when she doesn't get to the bathroom on time. This has happened "ever since I have had children" Hypothyroidism Nadeem Lowe, JOSELUIS Onset: 02/24/2015 Note: onset unknown Chronic pulmonary heart disease Florencia Oreilly MD Onset: 11/03/2015 Essential hypertension Mallory Felder M.D. Onset: 11/15/2015 Mixed hyperlipidemia Mallory Felder M.D. Onset: 11/15/2015 Unspecified fracture of sacrum, subsequent Madhav Mendoza MD Onset: 05/2017 encounter for fracture with routine healing Memory impairment Kami Bob M.D. Onset: 03/25/2018 Chronic fatigue syndrome Tico Olivarez M.D. Onset: 09/09/2018 Atherosclerosis of coronary artery without Mallory Felder M.D. Onset: 2018 angina pectoris Social History Type Date Description Comments Sex Unknown Cigarette Use Quit 30 Years Ago ETOH Use Denies alcohol use Tobacco Use Start: Unknown End: Patient is a former Smoked 1-2 packs Unknown smoker per week Recreational Drug Use Never Used Drugs Smoking Status Reviewed: 09/28/19 Patient is a former Smoked 1-2 packs smoker per week Exercise Type/Frequency Exercises sporadically Exercise Type/Frequency Used to walk daily 1/2 hour before heart attack December 2014 Exercise Type/Frequency Past Swimming 2-3 times per week heart attack December 2014 Allergies, Adverse Reactions, Alerts Active Allergies Reaction Severity Comments Date Levaquin severe emotional reaction 09/25/2011 Latex 03/29/2015 Camphor 03/29/2015 Penicillin 05/21/2019 Levaquin Oral Tablet 250 MG 09/01/2019 Inactive Allergies NKDA 03/22/2011 Medications Active Medications SIG Qnty Indications Ordering Date Provider Memantine HCL 1 tab by mouth twice 60tabs R41.3 Gomez Borrego, 10mg a day N.P. 9 Tablets Depend Adjustable use three times a 100units Kami Bob, Underwear L/XL day and as needed M.Cora 9 [facility] provide 1units Florencia Oreilly, necessary cpap 9 supplies, mask to fit, tubing , head gear, filters Onetouch Ultrasoft Test three times 100units Kami Bob, Lancets daily or as directed M.D. 9 Misc dx E11.21 Zofran Odt Q6H 12tabs Unknown 4mg 9 Tablets Dispers Melatonin 1 capsule at bedtime 90caps R41.3 Christopher 10mg Sher, M.D. 9 Capsules Omeprazole 1 by mouth every day 90caps K21.9 Kami Paulino, 40mg M.D. [address] Zarate one a day 90tabs K59.1 Kamijerardo Bob, 625mg M.D. 9 Tablets Valsartan 1 by mouth every day 90tabs I10 Kami Bob, 320mg M.D. 8 Tablets Ultra-Thin II Pen for use with lantus 100units Kami Bob, Nursery/Short/31GX5 M.D. 8 /16" 31G X 8 mm Misc BD Uf Orig Pen NDL Use Once Daily With 100units Kami Bob, 12.4VUA15P Lantus M.D. 8 Levemir Flextouch inject 33 15units Kami Bob, subcutaneously every M.D. 8 100Unit/ML Solution day - hold if bs<100 Pen-Inject Robitussin DM Sugar 10 ML PO Q 4-6 h prn 118ml Daly Free cough Cotton, M.DCarol 8 100-10mg/5ML Syrup Onetouch Verio use as directed 1units Kami Bob, M.D. 8 w/Device Kit Onetouch Verio Use For Testing Two 100units E11.8 Kami Bob, Times A Day And as M.D. 8 Strips Needed Pen Nursery 1/2" use once daily with 100units Kami Bob, lantus M.D. 7 29G X 12mm Misc BD Insulin Syringe as needed with 100units E11.65 Kami Bob, Ultrafine/0.3ML/31G lantus M.D. 6 X 5/16" 31G X 5/16" 0.3 ML Misc Januvia take 1 tab by mouth 90tabs Kami Bob, 100mg every day M.D. 6 Tablets Preservision Areds take one cap in the 60caps Kamijerardo Bob, 2 moring and one cap M.D. 6 Areds 2 Capsules in the evening for eye health Cardizem CD take 1 cap by mouth 90caps I10 Kami Bob, 240mg every morning M.D. 5 Caps ER 24HR Metoprolol Tartrate Take 1 Tablet By 60tabs I10 Kami Bob, Mouth 2 Times Daily M.D. 5 50mg Tablets For Hypertension Calcium take 1 tab by mouth 60tabs Kami Bob, Carbonate-Vitamin D twice daily for bone M.D. 5 health [id number] Tablets Multi-Vitamin/[place] 1 tab by mouth every 30tabs Kami Bob, als day as supplement M.D. 5 Tablets Pravachol take 1 tablet by 90tabs Kami Bob, 40mg mouth at bedtime M.D. 5 Tablets Nebulizer use as needed for 1units Anjel Parada NP Compressor/Dualfilt symptoms of sob 5 er/7' Tubing/Aerosol T/Mthpiece Kit Advair HFA inhale 1 puff by 24gm J98.4 Kami Bob, mouth twice daily M.D. 5 45-21mcg/Act for lung disease Aerosol Fluticasone Gifford 1 Sprays Each 16units J01.80 Kami Bob, Propionate Nostril Everyday M.D. 5 50mcg/Act Suspension Levothyroxine take 1 tab by mouth 90tabs Kami Bob, Sodium every day 6 days a M.D. 2 88mcg week only Tablets Blood Pressure Cuff as directed 1units I10 Susannah Varela, Large M.D. 2 Misc Entrust Plus at at bedtime and as 240units R32 Kami Bob, Undergarments needed M.D. 1 Misc N39.46 Acetaminophen 2 every 6 hours as 180tabs Kami Bob, 325mg Tablets needed for pain not to M.D. exceed 2gms/day Hemmorex-HC insert 1 rectally 2 Unknown 25mg Suppository times a day for 1 week then as needed there after for hemorrhoids Ferrous Gluconate Take 1 Tablet By Mouth 60tabs Kami Bob, 324(38Fe) 2 Times Daily For Bone M.D. mg Tablets Health Metformin HCL Take 1 Tablet By Mouth 60tabs Kami Bob, 1000mg Tablets Twice Daily For M.D. Diabetes Aspirin take 1 tablet by mouth 30units Kami Bob, 81mg Chewtabs every day dx: heart M.D. disease Magnesium Oxide Take One Tablet By 60tabs Kami Bob, 400mg Tablets Mouth Twice Daily M.D. (Lunch & Bedtime) DX: Supplement Ibuprofen 1 tablet po every 4-6 Unknown 600mg Tablets hours as needed Glucose 2 chewtabs as needed 30units Kami Bob, 4gm Chewtabs hypoglycemia M.D. Amoxicillin 4 capsules 1 hour 4caps [facility], 500mg Capsules before dental work M.D. Colace 2 caps by mouth every 30caps [facility], 100mg Capsules day as needed for M.D. constipation Chama And Floss Upper Not on Mar Unknown And Lower Partials bid Walker may use walker(not on Unknown Mar) May Use Exercise Room. Unknown Cpap patient is able to Unknown Device self administer Andre Stockings on in the am off at Unknown hs(not on Mar) Fingersticks before breakfast and Unknown dinner Depends Sizw XL 4 times a day [facility], needed for M.D. incontinence History Medications Memantine HCL 2 tab twice a day 120tabs R41.3 Gomez Borrego, 05/26/2019 - 5mg N.P. 09/28/2019 Tablets Multivit/Mineral Take 1 Tablet By 30units Kami Paulino, 04/20/2019 - Complete SM Mouth Daily For M.D. 09/09/2019 Supplement Ra Melatonin Bedtime Unknown 04/07/2019 - 10mg 05/20/2019 Tablets Macrobid Twice Daily 10caps Unknown 04/07/2019 - 100mg 05/20/2019 Capsules Medications Administered in Office Medication SIG Qnty Indications Ordering Provider Date NICKY Bob M.D. 09/18/2017 Injection NICKY Varela M.D. 09/18/2017 Injection NICKY Varela M.D. 02/28/2016 Injection Immunizations CPT Code Status Date Vaccine Lot # [id number] Given 09/08/2017 Tdap - Tetanus/Diptheria/Acellular Pertussis 55762 Given 05/06/2017 Influenza Virus Vaccine, Quadrivalent, Split, Preservative Free 00399 Given 03/28/2017 Pneumonia Vaccine [id number] 16542 Given 07/20/2015 Influenza Virus Vaccine, Quadrivalent, Split, Preservative Free 40130 Given 08/31/2014 Pneumococcal Conjugate Vaccine 13 Valent For [id number] Intramuscular Use Q2039 Given 07/07/2014 Flu Vaccine NOS 94896 Given 07/29/2013 Influenza Virus 3Yrs & Over Q2038 Given 06/26/2011 Fluzone Vaccine [id number] 92059 Given 08/20/1994 Pneumococcal Conjugate Vaccine 7 Valent For Intramuscular Use Vital Signs Date Vital Result Comment 09/28/2019 10:06am Height 57 inches 4'9" Weight 186.00 lb Heart Rate 73 /min BP Systolic 148 mmHg BP Diastolic 78 mmHg BMI (Body Mass Index) 40.2 kg/m2 09/10/2019 9:17am Height 57 inches 4'9" Weight 182.38 lb Heart Rate 72 /min BP Systolic Sitting 130 mmHg Lue reg cuff BP Diastolic Sitting 76 mmHg Lue reg cuff O2 % BldC Oximetry 96 % On Ra BMI (Body Mass Index) 39.5 kg/m2 Results Test Acquired Date Facility Test Result H/L Range Note CBC Auto 04/07/2019 [facility] White Blood 7.1 10^3/uL Normal 3.5-10.[address] [place] [address] [phone] Red Blood Count 4.51 10^6/uL Normal 3.70-4.87 Hemoglobin 14.2 g/dL Normal 12.0-16.0 Hematocrit 41 % Normal 35-47 Mean Corpuscular Volume 91 fL Normal 80-97 Mean Corpuscular Hemoglobin 32 pg High 27-31 Mean Corpuscular HGB Conc 35 g/dL Normal 31-36 Red Cell Distribution Width 14 % Normal 10-15 Platelet Count 220 10^3/uL Normal 150-450 Mean Platelet Volume 7.5 fL Normal 7.4-10.4 Abs Neutrophils 4.7 10^3/uL Normal 1.5-7.7 Abs Lymphocytes 1.3 10^3/uL Normal 1.0-4.8 Abs Monocytes 0.8 10^3/uL Normal 0-0.8 Abs Eosinophils 0.3 10^3/uL Normal 0-0.6 Abs Basophils 0.1 10^3/uL Normal 0-0.2 Abs Nucleated RBC 0.0 10^3/uL Granulocyte % 66.3 % Lymphocyte % 17.6 % Monocyte % 11.6 % Eosinophil % 3.7 % Basophil % 0.8 % Nucleated Red Blood Cells % 0.0 Inr/Protime 04/07/2019 [facility] Inr 0.99 Normal 0.82-1.[address] [place] [address] [phone] Laboratory test 04/07/2019 [facility] Lactic Acid 1.0 Normal 0.5-2.0 [address] mmol/[place] [address] [phone] Comp Metabolic 04/07/2019 [facility] Sodium 137 Normal 135- [address] mmol/[place] [address] [phone] Potassium 3.7 mmol/L Normal 3.5-5.0 Chloride 101 mmol/L Normal 101-111 Co2 Carbon Dioxide 26 mmol/L Normal 22-32 Anion Gap 10 mmol/L Normal 2-11 Glucose 158 mg/dL High 70-100 Blood Urea Nitrogen 25 mg/dL High 6-24 Creatinine 0.75 mg/dL Normal 0.51-0.95 BUN/Creatinine Ratio 33.3 High 8-20 Calcium 9.8 mg/dL Normal 8.6-10.3 Total Protein 7.2 g/dL Normal 6.4-8.9 Albumin 4.0 g/dL Normal 3.2-5.2 Globulin 3.2 g/dL Normal 2-4 Albumin/Globulin Ratio 1.3 Normal 1-3 Total Bilirubin 0.50 mg/dL Normal 0.2-1.0 Alkaline Phosphatase 99 U/L Normal 34-104 Alt 15 U/L Normal 7-52 Ast 19 U/L Normal 13-39 Egfr Non- 73.3 >60 Egfr 88.7 >60 3 Laboratory test 04/07/2019 [facility] Magnesium 1.8 mg/dL Low 1.9-2.7 [address] [place] [address] [phone] Lipase 24 U/L Normal 11.0-82.0 C Reactive Protein 7.79 mg/L Normal <8.01 Urinalysis Profile 04/07/2019 [facility] Urine Color Yellow [address] [place] [address] [phone] Urine Appearance Cloudy Urine Specific [place] 1.006 Low 1.010-1.030 Urine pH 5.0 Normal 5-9 Urine Urobilinogen Negative Negative Urine Ketones Negative Negative Urine Protein Negative Negative Urine Leukocytes 2+ Abnormal Negative Urine Blood Negative Negative * * Abnormal Negative 4 Urine Nitrite Negative Negative Urine Bilirubin Negative Negative Urine Glucose Negative Negative Urine White Blood Cell 3+(>20/hpf) Abnormal Absent Urine Red Blood Cell 1+(3-5/hpf) Abnormal Absent Urine Bacteria 1+ Abnormal Absent Urine Culture And 04/07/2019 [facility] Urine Culture SEE RESULT [address] [place] [address] [phone] Laboratory test 04/01/2019 [facility] In House Hemoglobin A1c 6.5% 5-7 finding 1 Standard intensity warfarin therapeutic range: 2.0-3.0 High intensity warfarin therapeutic range: 2.5-3.5 2 [place] Severe Sepsis and Septic Shock Management Bundle Measure requires all lactic acids initially measuring >2.0 mmol/L be repeated. 3 Because ethnic data is not always readily available, this report includes an eGFR for both -Americans and non- Americans. The National Kidney Disease Education Program (NKDEP) does not endorse the use of the MDRD equation for patients that are not between the ages of 18 and 70, are , have extremes of body size, muscle mass, or nutritional status, or are non- or non-. According to the National Kidney Foundation, irrespective of diagnosis, the stage of the disease is based on the level of kidney function: Stage Description GFR(mL/min/1.73 m(2)) 1 Kidney damage with normal or decreased GFR 90 2 Kidney damage with mild decrease in GFR 60-89 3 Moderate decrease in GFR 30-59 4 Severe decrease in GFR 15-29 5 Kidney failure <15 (or dialysis) 4 *Ascorbic acid is present which may interfere with detection of blood. 5 SEE RESULT BELOW Name: JYOTHI KEENE V : [address]: Chico Santizo MD Acct: [id number] Unit: [id number] AGE: 88 Location: ED Re04/07/19 SEX: F Status: DEP ER SPEC: [id number] ROWAN: 04/07/[address]: Alecia BROWN REQ: [id number] RECD: 04/07/19 STATUS: KARINA WHALEN DR: Kami Santizo MD _ SOURCE: URINE SPDESC: ORDERED: Urine Culture Procedure Result Reported Site Urine Culture Final 04/09/19- 0844 ML Organism 1 ESCHERICHIA COLI [place] Count >100,000 (Many) CFU/ML 1. ESCHERICHIA COLI M.I.C. RX --------- ------ Ampicillin <=2 S Cefazolin <=4 S Cefepime <=1 S Ceftriaxone <=1 S Ciprofloxacin <=0.25 S Gentamicin <=1 S Levofloxacin <=0.12 S Meropenem <=0.25 S Nitrofurantoin <=16 S Tetracycline <=1 S Pipercillin/Tazobactam <=4 S Trimethoprim/Sulfamethoxazole >=320 R Amoxicillin/Clavulanic Acid <=2 S Aztreonam <=1 S Contact the Microbiology Department for any additional antibiotic reporting. * [facility] - Main Lab . END OF REPORT DEPARTMENT OF PATHOLOGY, [address] [place] [address] Moses Bernard M.D. Director [facility] # [id number] Procedures Date Code Description Status 05/21/2019 01711 Pace Maker Eval W/Iterative Adjment Dual Lead Completed 05/21/2019 14361 Pace Maker Eval W/Iterative Adjment Dual Lead Completed 03/19/2019 [id number] Diabetic Retinal Eye Exam Completed 09/26/2018 775685525 Diabetic Retinal Eye Exam Completed 09/12/2017 234273434 Diabetic Retinal Eye Exam Completed 04/04/2017 [id number] Bone Mineral Density Test Completed 03/21/2017 900457329 Diabetic Retinal Eye Exam Completed 09/20/2016 [id number] Diabetic Retinal Eye Exam Completed 03/15/2016 096736592 Diabetic Retinal Eye Exam Completed 09/15/2015 469906287 Diabetic Retinal Eye Exam Completed 03/24/2015 835273230 Bone Mineral Density Test Completed 03/24/2015 74979196 Mammogram Completed 03/10/2015 332266064 Diabetic Retinal Eye Exam Completed 09/09/2014 703699436 Diabetic Retinal Eye Exam Completed 03/23/2014 74505889 Mammogram Completed 09/18/2013 614563262 Diabetic Retinal Eye Exam Completed 09/17/2013 987505277 Diabetic Retinal Eye Exam Completed 02/03/2013 31818548 Mammogram Completed 09/19/2012 389979993 Diabetic Retinal Eye Exam Completed 03/10/2012 627231859 Bone Mineral Density Test Completed 11/29/2011 40673795 Colonoscopy Completed 09/10/2011 500140618 Diabetic Foot Exam Completed 05/01/2011 497443548 Bone Mineral Density Test Completed Medical Devices Description No Information Available Encounters Type Date Location Provider Dx Diagnosis Office Visit 09/10/2019 Pulmonology And Florencia Oreilly, G47.33 Obstructive sleep 9:15a Sleep Services Of apnea (adult) Network Desktop Support Specialist (pediatric) I27.20 Pulmonary hypertension, unspecified Office Visit 07/28/2019 3:00p [facility] Nephrology Megha Ny I12.9 Hypertensive MD Karlee chronic kidney disease w stg 1-4/unsp chr kdny E11.22 Type 2 diabetes mellitus w diabetic chronic kidney disease N18.2 Chronic kidney disease, stage 2 (mild) E78.2 Mixed hyperlipidemia Z95.0 Presence of cardiac pacemaker I10 Essential (primary) hypertension I49.5 Sick sinus syndrome I48.0 Paroxysmal atrial fibrillation Office Visit 05/26/2019 10:00a [facility] Gomez Borrego, R41.3 Other amnesia Services Of [facility] N.P. I10 Essential (primary) hypertension I49.5 Sick sinus syndrome Z95.0 Presence of cardiac pacemaker Office Visit 05/21/2019 3:40p [facility] Mallory Bradford, I48.0 Paroxysmal atrial Of [facility] M.D. fibrillation I49.5 Sick sinus syndrome Z95.0 Presence of cardiac pacemaker I25.10 Athscl heart disease of [place] coronary artery w/o ang pctrs E78.2 Mixed hyperlipidemia R47.01 Aphasia I10 Essential (primary) hypertension G47.33 Obstructive sleep apnea (adult) (pediatric) E66.9 Obesity, unspecified E11.8 Type 2 diabetes mellitus with unspecified complications I34.0 Nonrheumatic mitral (valve) insufficiency Office Visit 04/01/2019 11:00a [facility] Internal Wilburfarzaneh Maria NP Z00.00 [facility] - [facility] general adult medical exam w/o abnormal findings M79.651 Pain in right thigh M79.652 Pain in left thigh E11.21 Type 2 diabetes mellitus with diabetic nephropathy E78.2 Mixed hyperlipidemia E03.9 Hypothyroidism, unspecified I10 Essential (primary) hypertension G47.33 Obstructive sleep apnea (adult) (pediatric) I48.0 Paroxysmal atrial fibrillation Assessments Date Code Description Provider 09/28/2019 R41.3 Other amnesia Gomez Borrego, N.P. 09/28/2019 I25.10 Atherosclerotic heart disease of [place] Gomez Borrego, N.P. coronary artery without angina pectoris 09/28/2019 E11.22 Type 2 diabetes mellitus with diabetic Gomez Borrego, N.P. chronic kidney disease 09/28/2019 G47.33 Obstructive sleep apnea (adult) (pediatric) Gomez Borrego, N.P. 09/10/2019 G47.33 Obstructive sleep apnea (adult) (pediatric) Florencia Oreilly MD 09/10/2019 I27.20 Pulmonary hypertension, unspecified Florencia Oreilly MD 07/28/2019 I12.9 Hypertensive chronic kidney disease with Megha Desir MD stage 1 through stage 4 chronic kidney disease, or unspecified chronic kidney disease 07/28/2019 E11.22 Type 2 diabetes mellitus with diabetic Megha Desir MD chronic kidney disease 07/28/2019 N18.2 Chronic kidney disease, stage 2 (mild) Megha Desir MD 07/28/2019 E78.2 Mixed hyperlipidemia Megha Desir MD 07/28/2019 Z95.0 Presence of cardiac pacemaker Megha Desir MD 07/28/2019 I10 Essential (primary) hypertension Megha Desir MD 07/28/2019 I49.5 Sick sinus syndrome Megha Desir MD 07/28/2019 I48.0 Paroxysmal atrial fibrillation Megha Desir MD 05/26/2019 R41.3 Other amnesia Gomez Borrego, N.P. 05/26/2019 I10 Essential (primary) hypertension Gomez Borrego, N.P. 05/26/2019 I49.5 Sick sinus syndrome Gomez Borrego N.P. 05/26/2019 Z95.0 Presence of cardiac pacemaker Gomez Borrego N.P. 05/21/2019 I48.0 Paroxysmal atrial fibrillation Mallory Felder M.D. 05/21/2019 I48.0 Paroxysmal atrial fibrillation Ica Pacer Schedule 05/21/2019 I49.5 Sick sinus syndrome Mallory Felder M.D. 05/21/2019 I49.5 Sick sinus syndrome Ica Pacer Schedule 05/21/2019 Z95.0 Presence of cardiac pacemaker Mallory Felder M.D. 05/21/2019 Z95.0 Presence of cardiac pacemaker Mallory Felder M.D. 05/21/2019 Z95.0 Presence of cardiac pacemaker Ica Pacer Schedule 05/21/2019 I25.10 Atherosclerotic heart disease of [place] Mallory Felder M.D. coronary artery without angina pectoris 05/21/2019 E78.2 Mixed hyperlipidemia Mallory Felder M.D. 05/21/2019 R47.01 Aphasia Mallory Felder M.D. 05/21/2019 I10 Essential (primary) hypertension Mallory Felder M.D. 05/21/2019 G47.33 Obstructive sleep apnea (adult) (pediatric) Mallory Felder M.D. 05/21/2019 E66.9 Obesity, unspecified Mallory Felder M.D. 05/21/2019 E11.8 Type 2 diabetes mellitus with unspecified Mallory Felder M.D. complications 05/21/2019 I34.0 Nonrheumatic mitral (valve) insufficiency Mallory Felder M.D. 04/01/2019 Z00.00 Encounter for general adult medical Wilbur Maria NP examination without abno 04/01/2019 M79.651 Pain in right thigh Wilburfarzaneh Maria NP 04/01/2019 M79.652 Pain in left thigh Wilbur JOSELUIS Maria 04/01/2019 E11.21 Type 2 diabetes mellitus with diabetic Wilburfarzaneh Maria NP nephropathy 04/01/2019 E78.2 Mixed hyperlipidemia Wilburfarzaneh Maria NP 04/01/2019 E03.9 Hypothyroidism, unspecified Wilburfarzaneh Maria NP 04/01/2019 I10 Essential (primary) hypertension Wilburfarzaneh Maria NP 04/01/2019 G47.33 Obstructive sleep apnea (adult) (pediatric) Wilbur Maria NP 04/01/2019 I48.0 Paroxysmal atrial fibrillation Wilburfarzaneh Marai NP Plan of Treatment Future Appointment(s):02/09/2020 10:15 am - Tico Olivarez M.D. at [facility]03/10/2020 10:30 am - Nathalie Valentin NP at [facility]11/24/2019 2:00 pm - Megha Desir MD at [facility] Nifbafbcec48/07/2020 9:50 am - Kami Bob M.D. at [facility] Internal Medicine - [facility]09/28/2019 - Gomez Borrego N.P.R41.3 Other amnesiaNew Medication:Memantine HCL 10 mg - 1 tab by mouth twice a dayFollow up:4 rdqevcL50.10 Atherosclerotic heart disease of [place] coronary artery without angina plqludxrM58.22 Type 2 diabetes mellitus with diabetic chronic kidney cbhslshR62.33 Obstructive sleep apnea (adult) (pediatric) Functional Status Functional Condition Comment Date Status Rolling walker is used to ambulate Active Mental Status Description No Information Available Referrals Description No Information Available
--- OUTSIDE RECORDS SUMMARY | 2019-10-02 06:43 | XMS REPORT | Continuity of Care Document ---
:1930 External Reference #:[id number] Author Name Florencia Oreilly MD (transmitted by agent of provider Fior Greco) Address [address], [address] [place] [address] Care Team Providers Name Role Phone Kami Bob MD - Internal Care Team Information Outside Cutter Medicine Problems Active Problems Provider Date Type [...] since I have had children" Hypothyroidism Nadeem Lowe NP Onset: 02/24/2015 Note: onset unknown Chronic pulmonary [...] Use Never Used Drugs Smoking Status Reviewed: 09/10/19 Patient is a former Smoked 1-2 packs [...] Medications SIG Qnty Indications Ordering Date Provider Depend Adjustable use three times a 100units Kami Bob, 07/31/2019 Underwear L/XL day and as needed [facility] Memantine HCL 2 tab twice a day 120tabs R41.3 Gomez 05/26/2019 5mg Borrego, N.P. Tablets Cpap Supplies Pls provide 1units Florencia Oreilly, 05/20/2019 necessary cpap supplies, mask to fit, tubing , head gear, filters Onetouch Ultrasoft Test three times 100units Kami Bob, 05/05/2019 Lancets daily or as directed [facility] dx E11.21 Zofran Odt Q6H 12tabs Unknown 04/07/2019 4mg Tablets Dispers Melatonin 1 capsule at bedtime 90caps R41.3 Gomez 01/22/2019 10mg Borrego, N.P. Capsules Omeprazole 1 by mouth every day 90caps K21.9 Kami Carran, 01/06/[address] Zarate one a day 90tabs K59.1 Kami Paulino, 11/04/2018 625mg M.D. Tablets Valsartan 1 by mouth every day 90tabs I10 Kami Paulino, 08/26/2018 320mg M.D. Tablets Ultra-Thin II Pen for use with lantus 100units Kami Bob, 02/10/2018 Sebastian/Short/31GX5 M.D. /16" 31G X 8 mm Misc BD Uf Orig Pen NDL Use Once Daily With 100units Kami Bob, 2017 12.5HZA85L Lantus M.D. Levemir Flextouch inject 33 15units Kami Bob, 12/05/2017 subcutaneously every M.D. 100Unit/ML Solution day - hold if bs<100 Pen-Inject Robitussin DM Sugar 10 ML PO Q 4-6 h prn 118ml Daly 11/24/2017 Free cough CottonLeoraD. 100-10mg/5ML Syrup Onetouch Verio use as directed 1units Kami Bob, 11/08/2017 M.D. w/Device Kit Onetouch Verio Use For Testing Two 100units E11.8 Kami Bob, 2017 Times A Day And as M.D. Strips Needed Pen Sebastian 1/2" use once daily with 100units Kami Bob, 09/03/2017 lantus M.D. 29G X 12mm Misc BD Insulin Syringe as needed with 100units E11.65 Kami Bob, 2015 Ultrafine/0.3ML/31G lantus M.D. X 5/16" 31G X 5/16" 0.3 ML Misc Januvia take 1 tab by mouth 90tabs Kami Bob, 09/04/2016 100mg every day M.D. Tablets Preservision Areds take one cap in the 60caps Kami Bob, 11/11/2015 2 moring and one cap M.D. Areds 2 Capsules in the evening for eye health Cardizem CD take 1 cap by mouth 90caps I10 Kami Bob, 04/07/2015 240mg every morning M.D. Caps ER 24HR Metoprolol Tartrate Take 1 Tablet By 60tabs I10 Kami Bob, 03/15/2015 Mouth 2 Times Daily M.D. 50mg Tablets For Hypertension Calcium take 1 tab by mouth 60tabs Kami Bob, 03/10/2015 Carbonate-Vitamin D twice daily for bone M.D. health 299-193nm-Gfwn Tablets Multi-Vitamin/Engraver Picture 1 tab by mouth every 30tabs Kami Bob, 2014 als day as supplement M.D. Tablets Pravachol take 1 tablet by 90tabs Kami Bob, 03/08/2015 40mg mouth at bedtime M.D. Tablets Nebulizer use as needed for 1units Anjel Parada NP 02/25/2015 Compressor/Dualfilt symptoms of sob er/7' Tubing/Aerosol T/Mthpiece Kit Advair HFA inhale 1 puff by 24gm J98.4 Kami Bob, 11/02/2014 mouth twice daily M.D. 45-21mcg/Act for lung disease Aerosol Fluticasone [place] 1 Sprays Each 16units J01.80 aKmi Bob, 10/26/2014 Propionate Nostril Everyday M.D. 50mcg/Act Suspension Levothyroxine take 1 tab by mouth 90tabs Kami Bob, 02/28/2012 Sodium every day 6 days a M.D. 88mcg week only Tablets Blood Pressure Cuff as directed 1units I10 Susannah Varela, 02/26/2012 Large M.D. Misc Entrust Plus at at bedtime and as 240units R32 Kami Bob, 09/27/2011 Undergarments needed M.D. Misc N39.46 Acetaminophen 2 every 6 hours as 180tabs Kami Bob, 325mg Tablets needed for pain not to M.D. exceed 2gms/day Hemmorex-HC insert 1 rectally 2 Unknown 25mg Suppository times a day for 1 week then as needed there after for hemorrhoids Ferrous Gluconate Take 1 Tablet By Mouth 60tabs Kamijerardo Bob, 324(38Fe) 2 Times Daily For Bone M.D. mg Tablets Health Metformin HCL Take 1 Tablet By Mouth 60tabs Kami Bob, 1000mg Tablets Twice Daily For M.D. Diabetes Aspirin take 1 tablet by mouth 30units Kamijerardo Bob, 81mg Chewtabs every day dx: heart M.D. disease Magnesium Oxide Take One Tablet By 60tabs Kamijerardo Bob, 400mg Tablets Mouth Twice Daily M.D. (Lunch & Bedtime) DX: Supplement Ibuprofen 1 tablet po every 4-6 Unknown 600mg Tablets hours as needed Glucose 2 chewtabs as needed 30units Kamijerardo Bob, 4gm Chewtabs hypoglycemia M.D. Amoxicillin 4 capsules 1 hour 4caps [facility] Capsules before dental work M.D. Colace 2 caps by mouth every 30caps [facility], 100mg Capsules day as needed for M.D. constipation Brewster And Floss Upper Not on Mar Unknown And Lower Partials bid Walker may use walker(not on Unknown Mar) May Use Exercise Room. Unknown Cpap patient is able to Unknown Device self administer Andre Stockings on in the am off at Unknown hs(not on Mar) Fingersticks before breakfast and Unknown dinner Depends Sizw XL 4 times a day as 360units Kami Bob, needed for M.D. incontinence History Medications Multivit/Mineral Take 1 Tablet By 30units Kami Bob, 04/20/2019 - Complete SM Mouth Daily For M.D. 09/09/2019 Supplement Ra Melatonin Bedtime Unknown 04/07/2019 - 10mg Tablets 05/20/2019 Macrobid Twice Daily 10caps Unknown 04/07/2019 - 100mg Capsules 05/20/2019 Medications Administered in Office Medication SIG Qnty Indications Ordering Provider Date NICKY Bob M.D. 09/18/2017 Injection NICKY Varela M.D. 09/18/2017 Injection NICKY Varela M.D. 02/28/2016 Injection Immunizations CPT Code Status Date Vaccine Lot # [id number] Given 09/08/2017 Tdap - Tetanus/Diptheria/Acellular Pertussis 91295 Given 05/06/2017 Influenza Virus Vaccine, Quadrivalent, Split, Preservative Free 58745 Given 03/28/2017 Pneumonia Vaccine [id number] 42876 Given 07/20/2015 Influenza Virus Vaccine, Quadrivalent, Split, Preservative Free 10208 Given 08/31/2014 Pneumococcal Conjugate Vaccine 13 Valent For [id number] Intramuscular Use Q2039 Given 07/07/2014 Flu Vaccine NOS 75588 Given 07/29/2013 Influenza Virus 3Yrs & Over Q2038 Given 06/26/2011 Fluzone Vaccine [id number] 22556 Given 08/20/1994 Pneumococcal Conjugate Vaccine 7 Valent For Intramuscular Use Vital Signs Date Vital Result Comment 09/10/2019 9:17am Height 57 inches 4'9" Weight 182.38 lb Heart Rate 72 /min BP Systolic Sitting 130 mmHg Lue reg cuff BP Diastolic Sitting 76 mmHg Lue reg cuff O2 % BldC Oximetry 96 % On Ra BMI (Body Mass Index) 39.5 kg/m2 07/28/2019 3:27pm Height 57 inches 4'9" Weight 180.00 lb Heart Rate 78 /min BP Systolic Sitting 184 mmHg R arm BP Diastolic Sitting 80 mmHg R arm O2 % BldC Oximetry 90 % BMI (Body Mass Index) 38.9 kg/m2 Results Test Acquired Date Facility Test Result H/L Range Note CBC Auto 04/07/2019 [facility] White Blood 7.1 10^3/uL Normal 3.5-10.[address] [place] [address] [phone] Red Blood Count 4.51 10^6/uL Normal 3.70-4.87 [...] Red Blood Cells % 0.0 Inr/Protime 04/07/2019 [facility] Inr 0.99 Normal 0.82-1.[address] [place] [address] [phone] Laboratory test 04/07/2019 [facility] Lactic Acid 1.0 Normal 0.5-2.0 [address] mmol/[place] [address] [phone] Comp Metabolic 04/07/2019 [facility] Sodium 137 Normal 135- [address] mmol/[place] [address] [phone] Potassium 3.7 mmol/L Normal 3.5-5.0 Chloride 101 [...] Egfr 88.7 >60 3 Laboratory test 04/07/2019 [facility] Magnesium 1.8 mg/dL Low 1.9-2.[address] [place] [address] [phone] Lipase 24 U/L Normal 11.0-82.0 C Reactive Protein 7.79 mg/L Normal <8.01 Urinalysis Profile 04/07/2019 [facility] Urine Color Yellow [address] [place] [address] [phone] Urine Appearance Cloudy Urine Specific [place] 1.006 Low 1.010-1.030 Urine pH 5.0 Normal [...] 1+ Abnormal Absent Urine Culture And 04/07/2019 [facility] Urine Culture SEE RESULT [address] [place] [address] [phone] Laboratory test 04/01/2019 [facility] In House Hemoglobin A1c 6.5% 5-7 [...] [address]: Chico Santizo MD Acct: [id number] Unit: [id number] AGE: 88 Location: ED Re04/07/19 SEX: F Status: DEP ER SPEC: [id number] ROWAN: 04/07/[address]: Alecia BROWN REQ: [id number] RECD: 04/07/19 STATUS: KARINA GARIBAY DR: Kami Santizo MD _ SOURCE: URINE SPDESC: ORDERED: Urine Culture Procedure Result Reported Site Urine Culture Final 04/09/19- 0844 ML Organism 1 ESCHERICHIA COLI [place] Count >100,000 (Many) CFU/ML 1. ESCHERICHIA COLI [...] . END OF REPORT DEPARTMENT OF PATHOLOGY, [address] [place] [address] Moses Bernard M.D. Director [facility] # [id number] Procedures Date Code Description Status 05/21/2019 51891 Pace Maker Kamilaal W/Iterative Adjment Dual Lead Completed 05/21/2019 93914 Pace Maker Eval W/Iterative Adjment Dual Lead Completed 03/19/2019 003981182 Diabetic Retinal Eye Exam Completed 09/26/2018 966839646 Diabetic Retinal Eye Exam Completed 09/12/2017 997699549 Diabetic Retinal Eye Exam Completed 04/04/2017 [id number] Bone Mineral Density Test Completed 03/21/2017 179117115 Diabetic Retinal Eye Exam Completed 09/20/2016 697769811 Diabetic Retinal Eye Exam Completed 03/15/2016 267659219 Diabetic Retinal Eye Exam Completed 09/15/2015 129879480 Diabetic Retinal Eye Exam Completed 03/24/2015 604698569 Bone Mineral Density Test Completed 03/24/2015 34425542 Mammogram Completed 03/10/2015 292490382 Diabetic Retinal Eye Exam Completed 09/09/2014 691098783 Diabetic Retinal Eye Exam Completed 03/23/2014 98903081 Mammogram Completed 09/18/2013 889341666 Diabetic Retinal Eye Exam Completed 09/17/2013 749933070 Diabetic Retinal Eye Exam Completed 02/03/2013 10332193 Mammogram Completed 09/19/2012 477360241 Diabetic Retinal Eye Exam Completed 03/10/2012 499574124 Bone Mineral Density Test Completed 11/29/2011 88772200 Colonoscopy Completed 09/10/2011 864560573 Diabetic Foot Exam Completed 05/01/2011 053829919 Bone Mineral Density Test Completed Medical Devices Description No Information Available Encounters Type Date Location Provider Dx Diagnosis Office Visit 07/28/2019 [facility] Mohammad A. 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 I10 Essential (primary) hypertension I49.5 Sick sinus syndrome Z95.0 Presence of cardiac pacemaker Office Visit 05/21/2019 3:40p [facility] Mallory Feledr, I48.0 Paroxysmal atrial [facility] Priti fibrillation I49.5 Sick sinus syndrome Z95.0 Presence of cardiac pacemaker I25.10 Athscl heart disease of [place] coronary artery w/o ang pctrs E78.2 Mixed hyperlipidemia R47.01 Aphasia I10 Essential (primary) hypertension G47.33 Obstructive sleep apnea (adult) (pediatric) E66.9 Obesity, unspecified E11.8 Type 2 diabetes mellitus with unspecified complications I34.0 Nonrheumatic mitral (valve) insufficiency Office Visit 04/01/2019 11:00a [facility] Internal Wilbur Maria NP Z00.00 [facility] general adult medical exam w/o abnormal findings M79.651 Pain in right thigh M79.652 Pain in left thigh E11.21 Type 2 diabetes mellitus with diabetic nephropathy E78.2 Mixed hyperlipidemia E03.9 Hypothyroidism, unspecified I10 Essential (primary) hypertension G47.33 Obstructive sleep apnea (adult) (pediatric) I48.0 Paroxysmal atrial fibrillation Assessments Date Code Description Provider 09/10/2019 G47.33 Obstructive sleep apnea (adult) (pediatric) [...] Desir MD 05/26/2019 R41.3 Other amnesia Gomez Borrego N.P. 05/26/2019 I10 Essential (primary) hypertension Gomez Borrego N.P. 05/26/2019 I49.5 Sick sinus syndrome Gomez [...] Schedule 05/21/2019 I25.10 Atherosclerotic heart disease of [place] Mallory Felder M.D. coronary artery without angina [...] abno 04/01/2019 M79.651 Pain in right thigh Wilbur JOSELUIS Maria 04/01/2019 M79.652 Pain in left thigh Wilburfarzaneh Maria NP 04/01/2019 E11.21 Type 2 diabetes mellitus with diabetic Wilburfarzaneh Maria NP nephropathy 04/01/2019 E78.2 Mixed hyperlipidemia Wilburfarzaneh Maria NP 04/01/2019 E03.9 Hypothyroidism, unspecified Wilburfarzaneh Maria NP 04/01/2019 I10 Essential (primary) hypertension Wilbur Maria NP 04/01/2019 G47.33 Obstructive sleep apnea (adult) (pediatric) Wilburfarzaneh Maria NP 04/01/2019 I48.0 Paroxysmal atrial fibrillation Wilburfarzaneh Maria NP Plan of Treatment Future Appointment(s):03/10/2020 10:30 am - Nathalie Valentin NP at [facility]11/24/2019 2:00 pm - Megha Desir MD at [facility]17/30/2019 10:00 am - Gomez Borrego N.P. at [facility]10/06/2019 9:50 am - Kami Bob M.D. at [facility] Internal Medicine - [facility]09/10/2019 - Florencia Oreilly MDG47.33 Obstructive sleep apnea (adult) (pediatric)Follow up:6 months SMI27.20 Pulmonary hypertension, unspecified Functional Status Functional Condition Comment Date Status Rolling walker is used to ambulate Active Mental Status Description No Information Available Referrals Description No Information Available
--- NOTE | 2019-10-02 06:49 | ED ---
Complex/Multi-Sys Presentation - HPI Summary HPI Summary: 89-year-old female with a significant past medical history of diabetes, hypothyroidism, CHF, hypertension, pacemaker/ICD placement, COPD, atrial fibrillation not on anticoagulation, active herpes zoster infection on her back presents to emergency department today after falling out of her bed and being found by jail staff this morning. [facility] staff reports finding her sitting down in her room next to her bed this morning with no evidence of acute trauma and no changes in mental status. Patient is unable to supply adequate history due to dementia. Patient does not appear to be in any acute distress and there is no obvious deformities or signs of trauma including abrasions, ecchymosis, lacerations. Possible fall was unwitnessed. Surgical history and family history noncontributory. - History Of Current Complaint Chief Complaint: EDFall Time Seen by Provider: 10/02/19 06:37 Hx Obtained From: Patient Hx From Patient Unobtainable Due To: Dementia - Allergies/Home Medications Allergies/Adverse Reactions: Allergies Allergy/AdvReac Type Severity Reaction Status Date / Time levofloxacin Allergy Unknown Unverified 10/02/19 07:02 Reaction Details Penicillins Allergy Hallucinati Unverified 10/02/19 07:01 ons Home Medications: Home Medications Guaifenesin/DM (SUGAR FREE)* [Diabetic Tussin DM*] 10 ml PO .Q4-6H PRN 10/02/19 [History Confirmed 10/02/19] PMH/Surg Hx/FS Hx/Imm Hx Endocrine/Hematology History: Reports: Hx Diabetes - on oral meds and insulin, Hx Thyroid Disease - hypothyroidism hx Cardiovascular History: Reports: Hx Congestive Heart Failure, Hx Hypercholesterolemia, Hx Hypertension, Hx Pacemaker/ICD, Hx Syncope Respiratory History: Reports: Hx Asthma, Hx Chronic Obstructive Pulmonary Disease (COPD), Other Respiratory Problems/Disorders - PNA GI History: Reports: Hx Gastroesophageal Reflux Disease History: Denies: Hx Dialysis, Hx Renal Disease Musculoskeletal History: Reports: Hx Arthritis Sensory History: Reports: Hx Cataracts - removed, Hx Contacts or Glasses Denies: Hx Deafness Opthamlomology History: Reports: Hx Cataracts - removed, Hx Contacts or Glasses - Cancer History Cancer Type, Location and Year: 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, surgically removed, per pt Hx Chemotherapy: No Hx Palliative Cancer Treatment: No - Surgical History Surgery Procedure, Year, and Place: PACEMAKER, OPEN HEART SURGERY Hx Anesthesia Reactions: No - Immunization History Date of Tetanus Vaccine: unknown Date of Influenza Vaccine: unknown Infectious Disease History: No Infectious Disease History: Reports: Hx Tuberculosis - pediatric Denies: Traveled Outside the [place] in Last 30 Days - Family History Known Family History: Positive: Diabetes - Social History Alcohol Use: Rare Hx Substance Use: No Substance Use Type: Reports: None Hx Tobacco Use: Yes - not currently Smoking Status (MU): Former Smoker Type: Cigarettes Have You Smoked in the Last Year: No Review of Systems - ROS Summary Review of Systems Summary: Adequate review of systems is difficult to obtain due to patient's mental status. Negative: Fever Negative: Chest Pain Negative: Shortness Of Breath Negative: Abdominal Pain, Vomiting, Nausea Skin: Negative All Other Systems Reviewed And Are Negative: Yes Physical Exam - Summary Physical Exam Summary: Patient is well-appearing with no evidence of ecchymosis. There is no gross deformities or evidence of trauma from fall. Lower extremity sounds 1+ pitting edema. PERRLA. EOMI. Evidence of atrial fibrillation with auscultation. Triage Information Reviewed: Yes Vital Signs On Initial Exam: Initial Vitals Temp Pulse Resp BP Pulse Ox 98.3 F 75 17 201/101 94 10/02/19 06:35 10/02/19 06:35 10/02/19 06:35 10/02/19 06:35 10/02/19 06:35 Vital Signs Reviewed: Yes Appearance: Positive: Well-Appearing, No Pain Distress, Well-Nourished Skin: Positive: Warm, Skin Color Reflects Adequate Perfusion Eyes: Positive: EOMI, JUAN PABLO ENT: Positive: Hearing grossly normal Respiratory/Lung Sounds: Positive: Clear to Auscultation, Breath Sounds Present Cardiovascular: Positive: IRR, S1, S2 Bowel Sounds: Positive: Present Psychiatric: Positive: Normal, Other - Dementia AVPU Assessment: Alert Procedures - Sedation Patient Received Moderate/Deep Sedation with Procedure: No Diagnostics - Vital Signs Vital Signs Temp Pulse Resp BP Pulse Ox 10/02/19 06:35 98.3 F 75 17 201/101 94 - Laboratory Result Diagrams: 10/02/19 07:11 10/02/19 07:11 Lab Statement: Any lab studies that have been ordered have been reviewed, and results considered in the medical decision making process. Complex Multi-Symp Course/Dx Course Of Treatment: Patient was evaluated in the emergency department status post fall this morning from her bed. Patient was seen and examined her vitals are stable and she is afebrile. Physical exam was difficult due to patient's dementia. EKG was done promptly which showed normal sinus rhythm at 77 bpm. 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 Prolonged QTC with evidence of first-degree block. 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 EKG changes are unchanged when compared to prior done on 11/20/17. Urinalysis returned showing no evidence of UTI. Labs returned showing no evidence of leukocytosis or significant electrolyte of normality. Patient likely suffered mechanical fall with no sequela or long-term trauma. Patient is to return home for further evaluation and management with her PCP. Patient was also diagnosed with shingles in the emergency department and was given 1 dose of acyclovir 800 mg in the department and given a prescription for further treatment. - Diagnoses Differential Diagnoses/HQI/PQRI: Closed Cranial Trauma, Metabolic Abnormality, Urinary Tract Infection Provider Diagnoses: Fall, Zoster Discharge ED - Sign-Out/Discharge Documenting (check all that apply): Patient Departure - Discharge Plan Condition: Stable Disposition: HOME Prescriptions: Acyclovir* [Zovirax 400 MG TAB*] 800 mg PO QID #28 tab Patient Education Materials: Fall Prevention for Older Adults (ED) Referrals: Kami Bob MD [Primary Care Provider] - 5 Days Additional Instructions: You were seen in the emergency department today due to a fall. Imaging was done and showed no evidence of trauma such as a brain bleed or fracture. Lab work was done which showed no evidence of an infection including a UTI. Please follow-up with your primary care provider for further evaluation and management in 5-7 days. Please return to emergency department immediately if you develop any new or worsening symptoms. You were diagnosed with shingles on the emergency department Please take acyclovir 800 mg 4 times daily for 7 days. - Billing Disposition and Condition Condition: STABLE Disposition: Home - Attestation Statements Provider Attestation: I was available for consult. This patient was seen by the JOSUÉ. The patient was not presented to, seen by, or examined by me. Pritesh Rodriguez MD
[2019-10-02 07:21] LABS: ABS Eosinophils 0.3 10^3/ul (0-0.6); ABS Lymphocytes 1.1 10^3/ul (1.0-4.8); ABS Monocytes 0.8 10^3/ul (0-0.8); ABS Neutrophils 6.9 10^3/ul (1.5-7.7); Hematocrit 42 % (35-47); Hemoglobin 14.3 g/dL (12.0-16.0); Lymphocyte % 12.4 %; Mean Corpuscular HGB Conc 34 g/dL (31-36); Mean Corpuscular Hemoglobin 31 pg (27-31); Mean Corpuscular Volume 92 fL (80-97); Mean Platelet Volume 7.4 fL (7.4-10.4); Nucleated Red Blood Cells % 0.1; Platelet Count 250 10^3/uL (150-450); Red Blood Count 4.55 10^6 /uL (3.70-4.87); Red Cell Distribution Width 14 % (10-15); White Blood Count 9.2 10^3/uL (3.5-10.8)
[2019-10-02 07:39] LABS: Albumin/Globulin Ratio 1.3 (1-3); Calcium 9.5 mg/dL (8.6-10.3); EGFR Non-African American 98.3 (>60); Potassium 3.8 mmol/L (3.5-5.0); Total Bilirubin 0.3 mg/dL (0.2-1.0)
[2019-10-02 09:47] LABS: Urine Appearance Cloudy; Urine Bilirubin Negative (Negative); Urine Blood Negative (Negative); Urine Color Yellow; Urine Glucose Negative (Negative); Urine Ketones Negative (Negative); Urine Nitrite Negative (Negative); Urine Protein 1+(30 mg/dL) (Negative); Urine Specific Gravity 1.008 (1.010-1.030); Urine Urobilinogen Negative (Negative)
[2019-10-02 09:51] LABS: Urine Bacteria 1+ (Absent); Urine Red Blood Cell Trace(0-2/hpf) (Absent); Urine Squamous Epithelial Cell Present (Absent); Urine White Blood Cell 2+(11-20/hpf) (Absent)
[2019-10-02] MEDS ORDERED: Acyclovir* 400 MG TAB PO ONE (10:23)
[2019-10-02 12:52] VITALS: BP 143/61
--- NOTE | 2019-10-04 10:24 | ED ---
Imaging and Labs Follow Up Follow Up Type: Labs/Cultures Labs/Culture Result: Urine culture growing >100k e. coli. Patient Communication/Plan: Pt. resides at [facility]. I called and spoke with [facility] staff member, Eugenia. Rx sent to pharmacy and culture faxed over. Provider Diagnoses: Fall, Zoster
== END 2019-10-02 11:50 | disposition home or self-care (01) ==
LOC: ED 06:29
DX: B02.9 Zoster without complications (principal); Z91.81 History of falling; J44.9 Chronic obstructive pulmonary disease, unspecified; E11.9 Type 2 diabetes mellitus without complications; E78.00 Pure hypercholesterolemia, unspecified; Z87.891 Personal history of nicotine dependence; Z85.828 Personal history of other malignant neoplasm of skin; Z79.84 Long term (current) use of oral hypoglycemic drugs
CPT/HCPCS: 36415; 70450; 72125; 80053; 81003; 81015; 83605; 85025; 87077; 87086; 87186; 93005; 99283; A9270-GY

== ENCOUNTER 2019-10-25 09:11 | Emergency (ER) | payer MEDICARE, MEDICAID ==
--- NOTE | 2019-10-25 09:32 | ED ---
Complex/Multi-Sys Presentation - HPI Summary HPI Summary: This patient is an 89 year old F presenting to ED with a chief complaint of SOB since [employer]. Patient is a poor historian. She called EMS for SOB but she is unsure how long she hasnt felt well. Patient states she has had a cold for a few days or weeks. She also states she has mild congestion. Patient says shes not feeling great. Patient also says her mouth hurts because of the absence of teeth. She lives at [place]. The patient rates the pain 0/10 in severity. Symptoms aggravated by nothing. Symptoms alleviated by nothing. - History Of Current Complaint Chief Complaint: EDAltMentalStatus Time Seen by Provider: 10/25/19 09:21 Hx Obtained From: Patient Onset/Duration: Gradual Onset, Other - Unknown- patient is a poor historian Severity Currently: Mild Severity Initially: Mild Aggravating Factor(s): Nothing Alleviating Factor(s): Nothing Associated Signs And Symptoms: Positive: SOB, Other - Mouth pain, congestion - Allergies/Home Medications Allergies/Adverse Reactions: Allergies Allergy/AdvReac Type Severity Reaction Status Date / Time levofloxacin Allergy Unknown Unverified 10/02/19 07:02 Reaction Details Penicillins Allergy Hallucinati Unverified 10/02/19 07:01 ons Home Medications: Home Medications Calcium Polycarbophil [Fibercon] 625 mg PO DAILY 10/25/19 [History Confirmed ] Vit C/E/Zn/Coppr/Lutein/Zeaxan [Preservision Areds 2 Softgel] 1 each PO BID [History Confirmed 10/25/19] PMH/Surg Hx/FS Hx/Imm Hx Endocrine/Hematology History: Reports: Hx Diabetes - on oral meds and insulin, Hx Thyroid Disease - hypothyroidism hx Cardiovascular History: Reports: Hx Congestive Heart Failure, Hx Hypercholesterolemia, Hx Hypertension, Hx Pacemaker/ICD, Hx Syncope Respiratory History: Reports: Hx Asthma, Hx Chronic Obstructive Pulmonary Disease (COPD), Other Respiratory Problems/Disorders - PNA GI History: Reports: Hx Gastroesophageal Reflux Disease History: Denies: Hx Dialysis, Hx Renal Disease Musculoskeletal History: Reports: Hx Arthritis Sensory History: Reports: Hx Cataracts - removed, Hx Contacts or Glasses Denies: Hx Deafness Opthamlomology History: Reports: Hx Cataracts - removed, Hx Contacts or Glasses - Cancer History Cancer Type, Location and Year: 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, surgically removed, per pt Hx Chemotherapy: No Hx Palliative Cancer Treatment: No - Surgical History Surgery Procedure, Year, and Place: PACEMAKER, OPEN HEART SURGERY Hx Anesthesia Reactions: No - Immunization History Date of Tetanus Vaccine: unknown Date of Influenza Vaccine: unknown Infectious Disease History: No Infectious Disease History: Reports: Hx Tuberculosis - pediatric Denies: Traveled Outside the [place] in Last 30 Days - Family History Known Family History: Positive: Diabetes - Social History Alcohol Use: Rare Hx Substance Use: No Substance Use Type: Reports: None Hx Tobacco Use: Yes - not currently Smoking Status (MU): Former Smoker Type: Cigarettes Have You Smoked in the Last Year: No Review of Systems ENT: Other - Congestion, mouth pain Positive: Shortness Of Breath All Other Systems Reviewed And Are Negative: Yes Physical Exam - Summary Physical Exam Summary: Appearance: The patient is well-nourished in no acute distress and in no acute pain. Skin: The skin is warm and dry, and skin color reflects adequate perfusion. HEENT: The head is normocephalic and atraumatic. The pupils are equal and reactive. The conjunctivae are clear and without drainage. Nares are patent and without drainage. Mouth reveals moist mucous membranes, and the throat is without erythema and exudate. The external ears are intact. The ear canals are patent and without drainage. The tympanic membranes are intact. Neck: The neck is supple with full range of motion and non-tender. There are no carotid bruits. There is no neck vein distension. Respiratory: Chest is non-tender. Lungs are clear to auscultation and breath sounds are symmetrical and equal. Cardiovascular: Heart is regular rate and rhythm. There is no murmur or rub auscultated. There is no peripheral edema and pulses are symmetrical and equal. Abdomen: The abdomen is soft and non-tender. There are normal bowel sounds heard in all four quadrants and there is no organomegaly palpated. Musculoskeletal: There is no back tenderness noted. Extremities are non-tender with full range of motion. There is good capillary refill. There is no peripheral edema or calf tenderness elicited. Neurological: Patient is alert but poorly oriented to time. The patient has symmetrical motor strength in all four extremities. Cranial nerves are grossly intact. Deep tendon reflexes are symmetrical and equal in all four extremities. Psychiatric: The patient has an appropriate affect and does not exhibit any anxiety or depression. Triage Information Reviewed: Yes Vital Signs On Initial Exam: Initial Vitals Temp Pulse Resp BP Pulse Ox 98.0 F 70 18 191/78 97 10/25/19 09:19 10/25/19 09:19 10/25/19 09:19 10/25/19 09:19 10/25/19 09:19 Vital Signs Reviewed: Yes Procedures - Sedation Patient Received Moderate/Deep Sedation with Procedure: No Diagnostics - Vital Signs Vital Signs Temp Pulse Resp BP Pulse Ox 10/25/19 09:19 98.0 F 70 18 191/78 97 - Laboratory Result Diagrams: 10/25/19 10:01 10/25/19 10:01 Lab Statement: Any lab studies that have been ordered have been reviewed, and results considered in the medical decision making process. - Radiology CXR Radiology Interpretation Completed By: Radiologist Summary of Radiographic Findings: HYPERINFLATION, CONSISTENT WITH COPD. NO ACTIVE CARDIOPULMONARY DISEASE. Dr. Wynn has reviewed this radiology report. - EKG 0938 Cardiac Rate: NL - 68 BPM EKG Rhythm: Sinus Rhythm Summary of EKG Findings: An EKG at 0938 revealed NSR at 68 BPM, RBBB, LAD. Dr. Wynn has reviewed and interpreted this EKG. Re-Evaluation - Re-Evaluation First Eval Re-Evaluation Time: 12:57 Comment: Discussed results with patient. Per patient's son-in-law, patient is at neurological baseline and appears normal. Patient is no longer complaining of mouth pain. After second troponin, patient can be discharged. Second Eval Re-Evaluation Time: 13:11 Comment: Second troponin 0.01. Discussed with patient. Patient will be discharged home with dx of shortness of breath. Patient understands and agrees with this plan. Complex Multi-Symp Course/Dx Course Of Treatment: Ms. Torres had a negative workup here in the emergency department including a delayed troponin. A family member was here and reported that she was behaving like her normal self. I recommended sending her back to the [place] [facility] with follow-up with her PCP - Diagnoses Provider Diagnoses: Shortness of breath Discharge ED - Sign-Out/Discharge Documenting (check all that apply): Patient Departure - Discharge - Discharge Plan Condition: Stable Disposition: HOME Patient Education Materials: Shortness of Breath (ED) Referrals: Kami Bob MD [Medical Doctor] - 3 Days Additional Instructions: Please follow-up with your primary care physician in 2-3 days. PLEASE RETURN TO THE ER FOR WORSENING OR CHANGING SYMPTOMS. It was a pleasure taking care of you today. - Billing Disposition and Condition Condition: STABLE Disposition: Home - Attestation Statements Document Initiated by Macarena: Yes Documenting Scribe: Pranay Burch Provider For Whom Macarena is Documenting (Include Credential): Lee Wynn MD Scribe Attestation: I, Pranay Burch, scribed for Lee Wynn MD on 10/25/19 at 1724. Scribe Documentation Reviewed: Yes Provider Attestation: The documentation as recorded by the Pranay galeana accurately reflects the service I personally performed and the decisions made by me, Lee Wynn MD Status of Scribe Document: Viewed
--- OUTSIDE RECORDS SUMMARY | 2019-10-25 09:32 | XMS REPORT ---
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 without without complicatio complicatio ns ns Infection s/s of Infection Active Natalie infection 1-10 [place] 10:30: 00 Pain frequent Pain Mgmt Active Natalie pain 1-10 [place] 10:30: 00 Cardio edema Cardiovasc Active Natalie ular 1-10 [place] 10:30: 00 Respiratory dyspnea Respirator Active Natalie present y 1-10 [place] 10:30: 00 Respiratory CPAP Respirator Active Natalie treatments y 1-10 [place] in home 10:30: 00 Endo/Fidel insulin Endo/Fidel Active Natalie admn 1-10 [place] dependence 10:30: 00 Endo/Fidel glucose Endo/Fidel Active Natalie testing 1-10 [place] dependence 10:30: 00 Endo/Fidel anti-coagul Endo/Fidel Resolve 2019-10-09 Natalie ation d 1-10 10:30:00 [place] therapy 10:30: 00 Endo/Fidel diabetic Endo/Fidel Resolve 2019-10-09 Natalie foot care d 1-10 10:30:00 [place] 10:30: 00 Sensory learning Sensory Resolve 2019-10-09 Natalie deficit d 1-10 10:30:00 [place] 10:30: 00 Integument skin Integument Active Natalie integrity 1-10 [place] risk 10:30: 00 Integument knowledge/s Integument Resolve 2019-10-09 Natalie kill d 1-10 10:30:00 [place] deficit: cg 10:30: 00 Nutrition nutritional Nutrition Resolve 2019-10-09 Natalie restriction d 1-10 10:30:00 [place] s 10:30: 00 Elimination bowel Eliminatio Active Natalie incontinenc n 1-10 [place] e 10:30: 00 Elimination nausea/vomi Eliminatio Active Natalie ting n 1-10 [place] 10:30: 00 Elimination urinary Eliminatio Resolve 2019-10-09 Natalie incontinenc n d 1-10 10:30:00 [place] e 10:30: 00 Neuro impaired Neuro/Emot Resolve 2019-10-09 Natalie decision-ma ion d 1-10 10:30:00 [place] jaime 10:30: 00 Neuro memory Neuro/Emot Resolve 2019-10-09 Natalie deficit ion d 1-10 10:30:00 [place] needing 10:30: supervision 00 Neuro constant Neuro/Emot Resolve 2019-10-09 Natalie confusion ion d 1-10 10:30:00 [place] 10:30: 00 Activity ADL Activity Resolve 2019-10-09 Natalie assistance d 1-10 10:30:00 [place] required 10:30: 00 Activity knowledge/s Activity Resolve 2019-10-09 Natalie kill d 1-10 10:30:00 [place] deficit: pt 10:30: 00 Activity self-care Activity Resolve 2019-10-09 Natalie deficit d 1-10 10:30:00 [place] 10:30: 00 Safety knowledge/s Safety Active Natalie kill 1-10 [place] deficit: pt 10:30: 00 Safety fall risk Safety Active Natalie factor 1-10 [place] present 10:30: 00 Safety risk for Safety Active Natalie hospitaliza 1-10 [place] tion 10:30: 00 Safety can be left Safety Active Natalie alone for 1-10 [place] only short 10:30: periods 00 Medication oral med Meds Resolve 2019-10-09 Natalie assistance d - 10:30:00 [place] required 10:30: 00 Medication injectable Meds Resolve 2019-10-09 Natalie med d 10-09 10:30:00 [place] assistance 10:30: required 00 Medication knowledge/s Meds Resolve 2019-10-09 Natalie kill d - 10:30:00 [place] deficit: pt 10:30: 00 Diagnoses knowledge/s Diagnoses Active Natalie kill 10-09 [place] deficit: pt 10:30: 00 Musculoskel transfer Musculoske Active Natalie etal assistance letal 10-09 [place] required 10:30: 00 Musculoskel knowledge/s Musculoske Active Natalie etal kill letal 10-09 [place] deficit: pt 10:30: 00 Musculoskel requires Musculoske Active Natalie etal human letal 10-09 [place] assist to 10:30: leave home 00 Respiratory dyspnea Respirator Unknown Speedy present y - [place] 14:15: [id number] Endo/Fidel diabetic Endo/Fidel Unknown Speedy foot care - [place] 14:15: [id number] Integument skin Integument Unknown Speedy integrity 10-09 [place] risk 14:15: [id number] Elimination bowel Eliminatio Unknown Speedy incontinenc n - [place] e 14:15: [id number] Diagnoses knowledge/s Diagnoses Unknown Speedy kill - [place] deficit: pt 14:15: [id number] Musculoskel transfer Musculoske Unknown Speedy etal assistance letal 10-09 [place] required 14:15: [id number] Musculoskel knowledge/s Musculoske Unknown Speedy etal kill letal 10-09 [place] deficit: pt 14:15: [id number] Endo/Fidel insulin Endo/Fidel Active Speedy admn - [place] dependence 15:05: [id number] Endo/Fidel glucose Endo/Fidel Active Speedy testing 10-12 [place] dependence 15:05: [id number] Endo/Fidel diabetic Endo/Fidel Active Speedy foot care - [place] 15:05: [id number] Endo/Fidel anti-coagul Endo/Fidel Active Speedy ation 10-12 [place] therapy 15:05: [id number] Sensory learning Sensory Active Speedy deficit - [place] 15:05: [id number] Allergies, Adverse Reactions, Alerts Allergy Allergy Type Status Severity Reaction(s) Onset Inactive Treating Comments Name Date Date Clinician Levaquin Medication Active Unknown Severe Ginny Name ID emotional 10-08 Elena reaction [employer] [id number] latex Unknown Active Unknown Reaction Ginny Unknown 10-08 Elena [employer] [id number] camphor Base Active Unknown Reaction Ginny Ingredient Unknown 10-08 [facility] [id number] Medications Ordered Filled Start Stop Current Ordering Indication Dosage Frequency Signature Comments Components Medication Medication Date Date Medication? Clinician (SIG) Name Name Levemir Levemir 2020- Yes Ryan Unknown Unknown FlexTouch FlexTouch 10-09 Jossy DEWITT U-100 U-100 Insulin 100 Insulin 100 unit/mL (3 unit/mL (3 mL) mL) subcutaneou subcutaneou s pen s pen Levemir Levemir 2020- Yes Ryan Unknown Unknown FlexTouch FlexTouch 10-09 Jossy DEWITT U-100 U-100 Insulin 100 Insulin 100 unit/mL (3 unit/mL (3 mL) mL) subcutaneou subcutaneou s pen s pen acyclovir acyclovir 2020- Yes Ryan Unknown Unknown 400 mg 400 mg 10-04 Jossy DEWITT tablet tablet sulfamethox sulfamethox Yes Ryan Unknown Unknown azole 800 azole 800 10-13 Jossy DEWITT mg-trimetho mg-trimetho prim 160 mg prim 160 mg tablet tablet Levemir Levemir Yes Ryan Unknown Unknown FlexTouch FlexTouch 10-09 Jossy DEWITT U-100 U-100 Insulin 100 Insulin 100 unit/mL (3 unit/mL (3 mL) mL) subcutaneou subcutaneou s pen s pen aspirin 81 aspirin 81 2019-0 Yes Ryan Unknown Unknown mg chewable mg chewable -10 [place],[facility] tablet tablet calcium calcium 2020-0 Yes [facility] Unknown Unknown carbonate carbonate [facility] mg 600 mg (1,500 (1,500 mg)-vitamin mg)-vitamin D3 400 unit D3 400 unit tablet tablet Cartia XT Cartia XT 2020-0 Yes Ryan Unknown Unknown 240 mg 240 mg -10 [place],[facility] capsule,ext capsule,ext ended ended release release ferrous ferrous 2020-0 Yes Ryan Unknown Unknown gluconate [facility]conate [facility] mg 324 mg (37.5 mg (37.5 mg iron) iron) tablet tablet FiberCon FiberCon 2020-0 Yes Ryan Unknown Unknown 625 mg 625 mg -10 [place],[facility] tablet tablet fluticasone fluticasone 2020-0 Yes Ryan Unknown Unknown [facility]ionate [facility] 50 mcg/actuati mcg/actuati on nasal on nasal spray,suspe spray,suspe nsion nsion Januvia 100 Januvia 100 2020-0 Yes Ryan Unknown Unknown mg tablet mg tablet 1-[facility] Levo-T 88 Levo-T 88 2020-0 Yes Ryan Unknown Unknown mcg tablet mcg tablet -[facility] magnesium magnesium 2020-0 Yes Ryan Unknown Unknown oxide 400 oxide 400 -[facility] mg (241.3 mg (241.3 mg mg magnesium) magnesium) tablet tablet melatonin melatonin 2020-0 Yes Ryan Unknown Unknown 10 mg 10 mg -[facility] memantine memantine 2020-0 2020- Yes Ryan Unknown Unknown 10 mg 10 mg -[facility] metFORMIN metFORMIN 2020-0 Yes Ryan Unknown Unknown 1,000 mg 1,000 mg -10 [place],[facility] tablet tablet metoprolol metoprolol 2020-0 Yes Ryan Unknown Unknown tartrate 50 tartrate 50 -[facility] mg tablet omeprazole omeprazole 2020-0 Yes Ryan Unknown Unknown 40 mg 40 mg -10 [place],[facility] capsule,del capsule,del ayed ayed release release Pravachol Pravachol 2020-0 Yes Ryan Unknown Unknown 40 mg 40 mg -10 [place],[facility] tablet tablet Advair HFA Advair HFA 2020-0 Yes Ryan Unknown Unknown 45 mcg-21 45 mcg-21 1-10 Jossy DEWITT mcg/actuati mcg/actuati on aerosol on aerosol inhaler inhaler memantine memantine 2019- Yes Ryan Unknown Unknown 10 mg 10 mg 1-10 ,Jossy tablet tablet PreserVisio PreserVisio 0 Yes Ryan Unknown Unknown n AREDS-2 n AREDS-2 1-10 ,Jossy 250 mg-200 250 mg-200 unit-40 unit-40 mg-1 mg mg-1 mg capsule capsule [facility] 0 Yes Ryan Unknown Unknown Complete 18 Complete 18 -10 ,Jossy mg-400 mcg mg-400 mcg tablet tablet valsartan valsartan Yes Ryan Unknown Unknown 320 mg 320 mg -10 ,Jossy tablet tablet acetaminoph acetaminoph Yes Ryan Unknown Unknown en 325 mg en 325 mg 1-10 ,Jossy tablet tablet amoxicillin amoxicillin Yes Ryan Unknown Unknown 500 mg 500 mg 1-10 ,Jossy capsule capsule Diabetic Diabetic Yes Ryan Unknown Unknown Tussin DM Tussin DM 1-10 ,Jossy 10 mg-100 10 mg-100 mg/5 mL mg/5 mL oral liquid oral liquid hydrocortis hydrocortis Yes Ryan Unknown Unknown one acetate one acetate 1-10 ,Jossy 25 mg 25 mg rectal rectal suppository suppository docusate docusate Yes Ryan Unknown Unknown sodium 100 sodium 100 1-10 Jossy DEWITT mg capsule mg capsule glucose 4 glucose 4 2019- Yes Ryan Unknown Unknown gram gram 1-10 Jossy DEWITT chewable chewable tablet tablet IBU 600 mg IBU 600 mg 2019- Yes Ryan Unknown Unknown tablet tablet 1-10 Jossy DEWITT ondansetron ondansetron 2019-0 Yes Ryan Unknown Unknown 4 mg 4 mg 1-10 Jossy DEWITT disintegrat disintegrat ing tablet ing tablet Vital Signs Vital Name Observation Time Observation Value Comments SYSTOLIC mm[Hg] 2019-10-12 18:09:51 126 mm[Hg] mm[Hg] Method: Sit DIASTOLIC mm[Hg] 2019-10-12 18:09:51 70 mm[Hg] mm[Hg] Method: Sit PULSE 2019-10-12 18:09:51 68 /min /min RESP RATE 2019-10-09 18:09:48 16 /min /min TEMP 2019-10-12 18:09:51 97.4 [degF] Procedures This patient has no known procedures. Plan of Care Planned Activity Planned Date Details Comments Results This patient has no known results.
--- OUTSIDE RECORDS SUMMARY | 2019-10-25 09:32 | XMS REPORT | Continuity of Care Document ---
:1930 External Reference #:[id number] Author Name Latha Blanco N.P. (transmitted by agent of provider Mary Marley) Address [address], [place] [address] Care Team Providers Name Role Phone Kami Bob MD - Internal Care Team Information Networker Medicine Problems Active Problems Provider Date Type [...] fatigue syndrome Tico Olivarez M.D. Onset: 09/09/2018 Social History Type Date Description Comments Sex Unknown Cigarette Use Quit 30 Years Ago ETOH Use Denies alcohol use Tobacco Use Start: Unknown End: Patient is a former Smoked 1-2 packs Unknown smoker per week Recreational Drug Use Never Used Drugs Smoking Status Reviewed: 10/06/19 Patient is a former Smoked 1-2 packs [...] Medications SIG Qnty Indications Ordering Date Provider Bactrim DS one by mouth twice a 14tabs N39.0 Latha Blanco, day for 7 days N.P. 0 800-160mg Tablets Clotrimazole/Betame apply twice daily to 45gm R21 Latha Blanco, thasone three times daily N.P. 0 Dipropionate 1-0.05% Cream Memantine HCL 1 tab by mouth twice 60tabs R41.3 Gomez Borrego, 10mg a day N.P. 9 Tablets Depend Adjustable use three times a 100units Kami Bob, Underwear L/XL day and as needed M.DCarol 9 [facility] provide 1units Florencia Marieali, necessary cpap 9 supplies, mask to fit, tubing , head gear, filters Onetouch Ultrasoft Test three times 100units Kami Bob, Lancets daily or as directed M.D. 9 [facility] dx E11.21 Zofran Odt Q6H 12tabs Unknown 4mg 9 Tablets Dispers Melatonin 1 capsule at bedtime 90caps R41.3 Christopher 10mg Sher, M.D. 9 Capsules Omeprazole 1 by mouth every day 90caps K21.9 Kami Bob, 40mg M.D. [address] Tessa one a day 90tabs K59.1 Kamijerardo Bob, 625mg M.D. 9 Tablets Valsartan 1 by mouth every day 90tabs I10 Kami Bob, 320mg M.D. 8 Tablets Ultra-Thin II Pen for use with lantus 100units Kami Bob, [place]/Short/31GX5 M.D. 8 /16" 31G X 8 mm [facility] BD Uf Orig Pen NDL Use Once Daily With 100units Kami Bob, 12.8OOH30W Lantus M.D. 8 Levemir Flextouch inject 33 15units Kamijerardo Bob, subcutaneously every M.D. 8 100Unit/ML Solution day - hold if bs<100 Pen-Inject Robitussin DM Sugar 10 ML PO Q 4-6 h prn 118ml Daly Free cough Cotton, M.D. 8 100-10mg/5ML Syrup Onetouch Verio use as directed 1units Kami Bob, M.D. 8 w/Device Kit Onetouch Verio Use For Testing Two 100units E11.8 Kami Paulino, Times A Day And as M.D. 8 Strips Needed Pen [place] 1/2" use once daily with 100units Kami Bob, lantus M.D. 7 29G X 12mm Misc BD Insulin Syringe as needed with 100units E11.65 Kamijerardo Bob, Ultrafine/0.3ML/31G lantus M.D. 6 X 5/16" 31G X 5/16" 0.3 ML Misc Januvia take 1 tab by mouth 90tabs Kami Bob, 100mg every day M.D. 6 Tablets Preservision Areds Take One Capsule In 60caps Wilbur Maria NP 2 The Moring And One 6 Areds 2 Capsules Capsule In The Evening DX: [facility] Cardizem CD take 1 cap by mouth 90caps I10 Kami Bob, 240mg every morning M.D. 5 Caps ER 24HR Metoprolol Tartrate Take 1 Tablet By 60tabs I10 Kami Bob, Mouth 2 Times Daily M.D. 5 50mg Tablets For Hypertension Calcium take 1 tab by mouth 60tabs Kami Bob, Carbonate-Vitamin D twice daily for bone M.D. 5 health [id number] Tablets Multi-Vitamin/Burna 1 tab by mouth every 30tabs Kami [...] 5 45-21mcg/Act for lung disease Aerosol Fluticasone [place] 1 Sprays Each 16units J01.80 Kami Bob, Propionate Nostril Everyday M.D. 5 50mcg/Act Suspension Levothyroxine take 1 tab by mouth 90tabs Kami Bob, Sodium every day 6 days a M.D. 2 88mcg week only Tablets Blood Pressure Cuff as directed 1units I10 Susannah Varela, Large M.D. 2 [facility] Entrust Plus at at bedtime and as 240units R32 Kami Bob, Undergarments needed M.D. 1 [facility] N39.46 Acyclovir take 1 tablet by mouth Unknown 400mg Tablets four times a day x10 days for shingles Acetaminophen 2 every 6 hours as 180tabs [...] M.D. Amoxicillin 4 capsules 1 hour 4caps Kamijerardo Bob, 500mg Capsules before dental work M.D. Colace 2 caps by mouth every 30caps Kami Bob, 100mg Capsules day as needed for M.D. constipation [place] And Floss Upper Not on Mar Unknown [...] Bob, needed for M.D. incontinence History Medications Memantine [...] CPT Code Status Date Vaccine Lot # [id number] Given 09/08/2017 Tdap - Tetanus/Diptheria/Acellular Pertussis 12642 Given 05/06/2017 Influenza Virus Vaccine, Quadrivalent, Split, Preservative Free 72830 Given 03/28/2017 Pneumonia Vaccine [id number] 42627 Given 07/20/2015 Influenza Virus Vaccine, Quadrivalent, Split, Preservative Free 75803 Given 08/31/2014 Pneumococcal Conjugate Vaccine 13 Valent For [id number] Intramuscular Use Q2039 Given 07/07/2014 Flu Vaccine NOS [id number] Given 07/29/2013 Influenza Virus 3Yrs & Over Q2038 Given 06/26/2011 Fluzone Vaccine [id number] 94912 Given 08/20/1994 Pneumococcal Conjugate Vaccine 7 Valent For Intramuscular Use Vital Signs Date Vital Result Comment 10/06/2019 10:41am Height 57 inches 4'9" Weight 185.00 lb Heart Rate 67 /min BP Systolic Sitting 120 mmHg BP Diastolic Sitting 64 mmHg Body Temperature 97.3 F O2 % BldC Oximetry 96 % BMI (Body Mass Index) 40.0 kg/m2 09/28/2019 10:06am Height 57 inches 4'9" Weight 186.00 lb Heart Rate 73 /min BP Systolic 148 mmHg BP Diastolic 78 mmHg BMI (Body Mass Index) 40.2 kg/m2 Results Test Acquired Date Facility Test Result H/L Range Note Laboratory test 10/06/2019 [facility] Hemoglobin A1c 6.4 5-7 finding Urinalysis Profile 10/02/2019 [facility] Urine Color Yellow [address] [place] [address] [phone] Urine Appearance Cloudy Urine Specific [place] 1.008 Low 1.010-1.030 Urine pH 7.0 Normal 5-9 Urine Urobilinogen Negative Negative Urine Ketones Negative Negative Urine Protein 1+(30 mg/dL) Abnormal Negative Urine Leukocytes 1+ Abnormal Negative Urine Blood Negative Negative * * Abnormal Negative 1 Urine Nitrite Negative Negative Urine Bilirubin Negative Negative Urine Glucose Negative Negative Urine White Blood Cell 2+(11-20/hpf) Abnormal Absent Urine Red Blood Cell Trace(0-2/hpf) Absent Urine Bacteria 1+ Abnormal Absent Urine Squamous Epithelial Cell Present Abnormal Absent Urine Culture And 10/02/2019 [facility] Urine Culture SEE RESULT [address] [place] [address] [phone] Comp Metabolic 10/02/2019 [facility] Sodium 133 mmol/L Low 135 -[address] [place] [address] [phone] Potassium 3.8 mmol/L Normal 3.5-5.0 Chloride 96 mmol/L Low 101-111 Co2 Carbon Dioxide 29 mmol/L Normal 22-32 Anion Gap 8 mmol/L Normal 2-11 Glucose 102 mg/dL High 70-100 Blood Urea Nitrogen 18 mg/dL Normal 6-24 Creatinine 0.58 mg/dL Normal 0.51-0.95 BUN/Creatinine Ratio 31.0 High 8-20 Calcium 9.5 mg/dL Normal 8.6-10.3 Total Protein 7.0 g/dL Normal 6.4-8.9 Albumin 4.0 g/dL Normal 3.2-5.2 Globulin 3.0 g/dL Normal 2-4 Albumin/Globulin Ratio 1.3 Normal 1-3 Total Bilirubin 0.30 mg/dL Normal 0.2-1.0 Alkaline Phosphatase 106 U/L High 34-104 Alt 15 U/L Normal 7-52 Ast 19 U/L Normal 13-39 Egfr Non- 98.3 >60 Egfr 119.0 >60 3 CBC Auto 10/02/2019 [facility] White Blood 9.2 10^3/uL Normal 3.5-10.[address] [place] [address] [phone] Red Blood Count 4.55 10^6/uL Normal 3.70-4.87 Hemoglobin 14.3 g/dL Normal 12.0-16.0 Hematocrit 42 % Normal 35-47 Mean Corpuscular Volume 92 fL Normal 80-97 Mean Corpuscular Hemoglobin 31 pg Normal 27-31 Mean Corpuscular HGB Conc 34 g/dL Normal 31-36 Red Cell Distribution Width 14 % Normal 10-15 Platelet Count 250 10^3/uL Normal 150-450 Mean Platelet Volume 7.4 fL Normal 7.4-10.4 Abs Neutrophils 6.9 10^3/uL Normal 1.5-7.7 Abs Lymphocytes 1.1 10^3/uL Normal 1.0-4.8 Abs Monocytes 0.8 10^3/uL Normal 0-0.8 Abs Eosinophils 0.3 10^3/uL Normal 0-0.6 Abs Basophils 0.0 10^3/uL Normal 0-0.2 Abs Nucleated RBC 0.0 10^3/uL Granulocyte % 75.0 % Lymphocyte % 12.4 % Monocyte % 9.2 % Eosinophil % 3.0 % Basophil % 0.4 % Nucleated Red Blood Cells % 0.1 Laboratory test 10/02/2019 [facility] Lactic Acid 1.0 mmol/L Normal 0.5-2.0 [address] [place] [address] [phone] CBC Auto Diff 04/07/2019 [facility] White Blood 7.1 10^3/uL Normal 3.5-10.[address] [place] [address] [phone] Red Blood Count 4.51 10^6/uL Normal 3.70-4.87 [...] Red Blood Cells % 0.0 Inr/Protime 04/07/2019 [facility] Inr 0.99 Normal 0.82-1.[address] [place] [address] [phone] Laboratory test 04/07/2019 [facility] Lactic Acid 1.0 Normal 0.5-2.0 [address] mmol/[place] [address] [phone] Comp Metabolic 04/07/2019 [facility] Sodium 137 Normal 135- [address] mmol/[place] [address] [phone] Potassium 3.7 mmol/L Normal 3.5-5.0 Chloride 101 [...] Egfr Non- 73.3 >60 Egfr 88.7 >60 7 Laboratory test 04/07/2019 [facility] Magnesium 1.8 mg/dL Low 1.9-2.[address] [place] [address] [phone] Lipase 24 U/L Normal 11.0-82.0 C Reactive Protein 7.79 mg/L Normal <8.01 Urinalysis Profile 04/07/2019 [facility] Urine Color Yellow [address] [place] [address] [phone] Urine Appearance Cloudy Urine Specific [place] 1.006 Low 1.010-1.030 Urine pH 5.0 Normal 5-9 Urine Urobilinogen Negative Negative Urine Ketones Negative Negative Urine Protein Negative Negative Urine Leukocytes 2+ Abnormal Negative Urine Blood Negative Negative * * Abnormal Negative 8 Urine Nitrite Negative Negative Urine Bilirubin Negative Negative Urine Glucose Negative Negative Urine White Blood Cell 3+(>20/hpf) Abnormal Absent Urine Red Blood Cell 1+(3-5/hpf) Abnormal Absent Urine Bacteria 1+ Abnormal Absent Urine Culture And 04/07/2019 [facility] Urine Culture SEE RESULT [address] [place] [address] [phone] 1 *Ascorbic acid is present which may interfere with detection of blood. 2 SEE RESULT BELOW Name: JYOTHI KEENE V : [address]: Pritesh Rodriguez MD Acct: [id number] Unit: [id number] AGE: 89 Location: ED Re10/02/19 SEX: F Status: DEP ER SPEC: [id number] ROWAN: 10/02/[address] [facility] [address]: Baltazar BROWN REQ: [id number] RECD: 10/02/19 STATUS: COMP [facility] DR: Kami Rodriguez MD _ SOURCE: URINE SPDESC: ORDERED: Urine Culture Procedure Result Reported Site Urine Culture Final 10/04/19- 841 ML Organism 1 ESCHERICHIA COLI [place] Count >100,000 (Many) CFU/ML 1. ESCHERICHIA COLI [...] . END OF REPORT DEPARTMENT OF PATHOLOGY, [address] [place] [address] Moses Bernard M.D. Director [facility] # [id number] 3 Because ethnic data is not always [...] 5 Kidney failure <15 (or dialysis) 4 [facility] Severe Sepsis and Septic Shock Management Bundle Measure requires all lactic acids initially measuring >2.0 mmol/L be repeated. 5 Standard intensity warfarin therapeutic range: 2.0-3.0 High intensity warfarin therapeutic range: 2.5-3.5 6 [facility] Severe Sepsis and Septic Shock Management Bundle Measure requires all lactic acids initially measuring >2.0 mmol/L be repeated. 7 Because ethnic data is not always readily [...] 15-29 5 Kidney failure <15 (or dialysis) 8 *Ascorbic acid is present which may interfere with detection of blood. 9 SEE RESULT BELOW Name: JYOTHI KEENE V : [address]: Chico Santizo MD Acct: [id number] Unit: [id number] AGE: 88 Location: ED Re04/07/19 SEX: F Status: DEP ER SPEC: [id number] ROWAN: 04/07/[address] [facility] [address]: Alecia BROWN REQ: [id number] RECD: 04/07/19 STATUS: KARINA GARIBAY DR: Kami Santizo MD _ SOURCE: URINE SPDESC: ORDERED: Urine Culture Procedure Result Reported Site Urine Culture Final 04/09/19- 0844 ML Organism 1 ESCHERICHIA COLI [place] Count >100,000 (Many) CFU/ML 1. ESCHERICHIA COLI [...] . END OF REPORT DEPARTMENT OF PATHOLOGY, [address] [place] [address] Moses Bernard M.D. Director [facility] # [id number] Procedures Date Code Description Status 05/21/2019 17978 Pace Maker Eval W/Iterative Adjment Dual Lead Completed 05/21/2019 96628 Pace Maker Eval W/Iterative Adjment Dual Lead Completed 03/19/2019 [id number] Diabetic Retinal Eye Exam Completed 09/26/2018 737732470 Diabetic Retinal Eye Exam Completed 09/12/2017 514943816 Diabetic Retinal Eye Exam Completed 04/04/2017 900838311 Bone Mineral Density Test Completed 03/21/2017 669741080 Diabetic Retinal Eye Exam Completed 09/20/2016 016426965 Diabetic Retinal Eye Exam Completed 03/15/2016 322635708 Diabetic Retinal Eye Exam Completed 09/15/2015 656003591 Diabetic Retinal Eye Exam Completed 03/24/2015 506849469 Bone Mineral Density Test Completed 03/24/2015 72879403 Mammogram Completed 03/10/2015 291892825 Diabetic Retinal Eye Exam Completed 09/09/2014 220919597 Diabetic Retinal Eye Exam Completed 03/23/2014 42242104 Mammogram Completed 09/18/2013 596116326 Diabetic Retinal Eye Exam Completed 09/17/2013 083355376 Diabetic Retinal Eye Exam Completed 02/03/2013 47859330 Mammogram Completed 09/19/2012 027226697 Diabetic Retinal Eye Exam Completed 03/10/2012 647648795 Bone Mineral Density Test Completed 11/29/2011 48352026 Colonoscopy Completed 09/10/2011 776511090 Diabetic Foot Exam Completed 05/01/2011 605004212 Bone Mineral Density Test Completed Medical Devices Description No Information Available Encounters Type Date Location Provider Dx Diagnosis Office Visit 09/28/2019 [facility] Gomez Borrego, R41.3 Other amnesia 10:00a [facility] N.P. 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 I10 Essential (primary) hypertension I49.5 Sick sinus syndrome Z95.0 Presence of cardiac pacemaker Office Visit 05/21/2019 3:40p [facility] Mallory Felder, I48.0 Paroxysmal atrial [facility] M.D. fibrillation I49.5 Sick sinus syndrome Z95.0 Presence of cardiac pacemaker I25.10 Athscl heart disease of [place] coronary artery w/o ang pctrs E78.2 Mixed hyperlipidemia R47.01 Aphasia I10 Essential (primary) hypertension G47.33 Obstructive sleep apnea (adult) (pediatric) E66.9 Obesity, unspecified E11.8 Type 2 diabetes mellitus with unspecified complications I34.0 Nonrheumatic mitral (valve) insufficiency Assessments Date Code Description Provider 10/06/2019 E11.22 Type 2 diabetes mellitus with diabetic Latha Blanco, N.P. chronic kidney disease 10/06/2019 R55 Syncope and collapse Latha Blanco, N.P. 10/06/2019 N39.0 Urinary tract infection, site not specified Latha Varn, N.P. 10/06/2019 R26.81 Unsteadiness on feet Latha Blanco, N.P. 10/06/2019 F41.9 Anxiety disorder, unspecified Latha Blanco, N.P. 10/06/2019 R21 Rash and other nonspecific skin eruption Latha Blanco, N.P. 09/28/2019 R41.3 Other amnesia Gomez Borrego, N.P. 09/28/2019 I25.10 Atherosclerotic heart disease of [place] Gomez Borrego, N.P. 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 05/21/2019 R47.01 Aphasia Mallory Felder M.D. 05/21/2019 I10 Essential (primary) hypertension Mallory Felder M.D. 05/21/2019 G47.33 Obstructive sleep apnea (adult) (pediatric) Mallory Felder M.D. 05/21/2019 E66.9 Obesity, unspecified Mallory eFlder M.D. 05/21/2019 E11.8 Type 2 diabetes mellitus with unspecified Mallory Felder M.D. complications 05/21/2019 I34.0 Nonrheumatic mitral (valve) insufficiency Mallory Felder M.D. Plan of Treatment Future Appointment(s):04/05/2020 11:10 am - Kami Bob M.D. at [facility] Internal Medicine - [facility]02/09/2020 10:15 am - Tico Olivarez M.D. at [facility]03/10/2020 10:30 am - Nathalie Valentin NP at [facility]11/24/2019 2:00 pm - Megha Desir MD at [facility] Qadyydfslr63/07/2020 - Latha Blanco N.P.E11.22 Type 2 diabetes mellitus with diabetic chronic kidney [id number] Syncope and collapseComments:I suspect your fall out of bed was related to your urinary tract infection. Your blood work did not show any significant abnormalities.N39.0 Urinary tract infection, site not specifiedNew Medication:Bactrim DS 800-160 mg - one by mouth twice a day for 7 daysComments:For your urinary tract infection: I want you t o stop taking the Cephalexin and start taking BactrimDS.Avoid bladder irritants: coffee, tea, clarissa, alcohol, and spicy foods.I am sending a specimen forculture, the office will call if you need a different antibiotic. If symptoms persist call the office.R26.81 Unsteadiness on feetNew Therapy: Occupational TherapyPhysical TherapyComments:To help you get stronger and to improve your balance I have ordered physical and occupational therapy.F41.9 Anxiety disorder, [id number] Rash and other nonspecific skin eruptionNew Medication:Clotrimazole/Betamethasone Dipropionate 1-0.05 % - apply twice daily to three times dailyComments:For your rash I have prescribed Clortrimazole/ Betamethasone cream. Apply this twice daily until the rash clears. Functional Status Functional Condition Comment Date Status Rolling walker is used to ambulate Active Mental Status Description No Information Available Referrals Description No Information Available
--- OUTSIDE RECORDS SUMMARY | 2019-10-25 09:32 | XMS REPORT ---
:1930 Author Organization [facility] Care Team Providers Name Role Phone Unavailable Unavailable Unavailable Problems Condition Condition Condition Status Onset Resolution Last Treating Comments Name Details Category Date Date Treatment Clinician Date Type 2 Type 2 Diagnosis Active Lucina diabetes diabetes 10-07 Wendela mellitus mellitus without without complicatio complicatio ns ns Allergies, Adverse Reactions, Alerts Allergy Allergy Type Status Severity Reaction(s) Onset Inactive Treating Comments Name Date Date Clinician Levaquin Medication Active Unknown Severe Ginny Name ID emotional 10-08 Elena reaction [employer] [id number] latex Unknown Active Unknown Reaction Ginny Unknown 10-08 Elena [employer] [id number] camphor Base Active Unknown Reaction Ginny Ingredient Unknown 10-08 Elena [employer] [id number] Medications Ordered Filled Start Stop Current Ordering Indication Dosage Frequency Signature Comments Components Medication Medication Date Date Medication? Clinician (SIG) Name Name No Known No Known No None None None Medications Medications For This For This Patient Patient Procedures This patient has no known procedures. Results This patient has no known results.
--- OUTSIDE RECORDS SUMMARY | 2019-10-25 09:32 | XMS REPORT ---
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 Heart Heart Diagnosis Active Speedy failure, failure, 09-30 Graves unspecified unspecified [id number] Polyosteoar Polyosteoar Diagnosis Active Speedy thritis, thritis, 09-30 Graves unspecified unspecified [id number] 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 09-30 Graves mellitus mellitus [id number] without without complicatio complicatio ns ns Pulmonary Pulmonary Diagnosis Active Speedy heart heart 09-30 Graves disease, disease, [id number] unspecified unspecified Paroxysmal Paroxysmal Diagnosis Active Speedy atrial atrial 09-30 Graves fibrillatio fibrillatio [id number] n n Obstructive Obstructive Diagnosis Active Speedy sleep apnea sleep apnea Graves (adult) (adult) [id number] (pediatric) (pediatric) 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 [id number] Hypothyroid Hypothyroid Diagnosis Active Speedy ism, ism, Graves unspecified unspecified [id number] Mixed Mixed Diagnosis Active Speedy hyperlipide hyperlipide Graves ze ze [id number] Obesity, Obesity, Diagnosis Active Speedy unspecified unspecified Graves [id number] 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 [id number] 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 [id number] graft graft History of History of Diagnosis Active Speedy falling falling Graves [id number] Presence of 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 [id number] Personal Personal Diagnosis Active Speedy history of history of Graves nicotine nicotine [id number] dependence 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 (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) (current) Graves use of use of [id number] insulin insulin 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 snf Diagnosis Active Speedy (current) (current) Graves use of use of [id number] aspirin aspirin snf snf Diagnosis Active Speedy (current) (current) Graves use of use of [id number] non-steroid non-steroid al al anti-inflam anti-inflam matories matories (NSAID) (NSAID) Infection s/s of Infection Resolve 2019-10-13 Natalie infection d 1-10 11:20:00 [place] 10:30: 00 Pain frequent Pain Mgmt Resolve 2019-10-13 Natalie pain d 1-10 11:20:00 [place] 10:30: 00 Cardio edema Cardiovasc Resolve 2019-10-13 Natalie ular d 1-10 11:20:00 [place] 10:30: 00 Respiratory dyspnea Respirator Resolve 2019-10-13 Natalie present y d 1-10 11:20:00 [place] 10:30: 00 Respiratory CPAP Respirator Resolve 2019-10-13 Natalie treatments y d 1-10 11:20:00 [place] in home 10:30: 00 Endo/Fidel insulin Endo/Fidel Resolve 2019-10-13 Natalie admn d 1-10 11:20:00 [place] dependence 10:30: 00 Endo/Fidel glucose Endo/Fidel Resolve 2019-10-13 Natalie testing d 1-10 11:20:00 [place] dependence 10:30: 00 Endo/Fidel anti-coagul Endo/Fidel Resolve 2019-10-09 Natalie ation d 1-10 10:30:00 [place] therapy 10:30: 00 Endo/Fidel diabetic Endo/Fidel Resolve 2019-10-09 Natalie foot care d 1-10 10:30:00 [place] 10:30: 00 Sensory learning Sensory Resolve 2019-10-09 Natalie deficit d 1-10 10:30:00 [place] 10:30: 00 Integument skin Integument Resolve 2019-10-13 Natalie integrity d 1-10 11:20:00 [place] risk 10:30: 00 Integument knowledge/s Integument Resolve 2019-10-09 Natalie kill d 1-10 10:30:00 [place] deficit: cg 10:30: 00 Nutrition nutritional Nutrition Resolve 2019-10-09 Natalie restriction d 1-10 10:30:00 [place] s 10:30: 00 Elimination bowel Eliminatio Resolve 2019-10-13 Natalie incontinenc n d 1-10 11:20:00 [place] e 10:30: 00 Elimination nausea/vomi Eliminatio Resolve 2019-10-13 Natalie ting n d 1-10 11:20:00 [place] 10:30: 00 Elimination urinary Eliminatio Resolve [...] 10:30:00 [place] 10:30: 00 Safety knowledge/s Safety Resolve 2019-10-13 Natalie kill d 1-10 11:20:00 [place] deficit: pt 10:30: 00 Safety fall risk Safety Resolve 2019-10-13 Natalie loyd d 1-10 11:20:00 [place] present 10:30: 00 Safety risk for Safety Resolve 2019-10-13 Natalie neville d 1-10 11:20:00 [place] tion 10:30: 00 Safety can be left Safety Resolve 2019-10-13 Natalie mckeon d 1-10 11:20:00 [place] only short 10:30: periods 00 Medication oral med Meds Resolve 2019-10-09 Natalie assistance d 1-10 10:30:00 [place] required 10:30: 00 Medication injectable Meds Resolve 2019-10-09 Natalie med d 1-10 10:30:00 [place] assistance 10:30: required 00 Medication knowledge/s Meds Resolve 2019-10-09 Natalie kill d 1-10 10:30:00 [place] deficit: pt 10:30: 00 Diagnoses knowledge/s Diagnoses Active Natalie kill - [place] deficit: pt 10:30: 00 Musculoskel transfer Musculoske Resolve 2019-10-13 Natalie etal assistance letal d 1-10 11:20:00 [place] required 10:30: 00 Musculoskel knowledge/s Musculoske Resolve 2019-10-13 Natalie etal kill letal d 1- 11:20:00 [place] deficit: pt 10:30: 00 Musculoskel requires Musculoske Resolve 2019-10-13 Natalie etal human letal d 1-10 11:20:00 [place] assist to 10:30: leave home 00 Respiratory dyspnea Respirator Unknown Speedy present y 1-10 Graves 14:15: [id number] Endo/Fidel diabetic Endo/Fidel Unknown Speedy foot care 1-10 Graves 14:15: [id number] Integument skin Integument Unknown Speedy integrity 1-10 Graves risk 14:15: [id number] Elimination bowel Eliminatio Unknown Speedy incontinenc n 1-10 Graves e 14:15: [id number] Diagnoses knowledge/s Diagnoses Unknown 2020-0 Speedy kill - Graves deficit: pt 14:15: [id number] Musculoskel transfer Musculoske Unknown Speedy etal assistance letal - Graves required 14:15: [id number] Musculoskel knowledge/s Musculoske Unknown Speedy etal kill letal -10 Graves deficit: pt 14:15: [id number] Endo/Fidel insulin Endo/Fidel Unknown Speedy admn 10-12 Graves dependence 15:05: [id number] Endo/Fidel glucose Endo/Fidel Unknown Speedy testing 10-12 Graves dependence 15:05: [id number] Endo/Fidel diabetic Endo/Fidel Resolve 2019-10-13 Speedy foot care d 10-12 11:20:00 Graves 15:05: [id number] Endo/Fidel anti-coagul Endo/Fidel Resolve 2019-10-13 Speedy ation d 10-12 11:20:00 Graves therapy 15:05: [id number] Sensory learning Sensory Resolve 2019-10-13 Speedy deficit d 10-12 11:20:00 Graves 15:05: [id number] 00 Elimination urinary Eliminatio Resolve 2019-10-13 Ginny incontinenc n d 10-13 11:20:00 Suhas loaiza 11:20: 00 Safety risk for Safety Active Speedy hospitaliza 10-15 Graves tion 12:15: [id number] 00 Activity knowledge/s Activity Active Speedy kill 10-19 Graves deficit: pt 15:30: [id number] 00 Activity self-care Activity Active Speedy deficit 10-19 Graves 15:30: [id number] 00 Allergies, Adverse Reactions, Alerts Allergy Allergy Type Status Severity Reaction(s) Onset Inactive Treating Comments Name Date Date Clinician Levaquin Medication Active Unknown Severe Ginny Name ID emotional 10-08 Elena reaction [employer] [id number] latex Unknown Active Unknown Reaction Ginny Unknown 10-08 Elena [employer] [id number] camphor Base Active Unknown Reaction Ginny Ingredient Unknown 10-08 Elena [employer] [id number] Medications Ordered Filled Start Stop Current Ordering Indication Dosage Frequency Signature Comments Components Medication Medication Date Date Medication? Clinician (SIG) Name Name Levemir Levemir 0 2020- Yes Ryan Unknown Unknown FlexTouch FlexTouch 10-09 Jossy DEWITT U-100 U-100 Insulin 100 Insulin 100 unit/mL (3 unit/mL (3 mL) mL) subcutaneou subcutaneou s pen s pen Levemir Levemir 0 2020- Yes Ryan Unknown Unknown FlexTouch FlexTouch 10-09 Jossy DEWITT U-100 U-100 Insulin 100 Insulin 100 unit/mL (3 unit/mL (3 mL) mL) subcutaneou subcutaneou s pen s pen acyclovir acyclovir 2020- Yes Ryan Unknown Unknown 400 mg 400 mg 10-04 Jossy DEWITT tablet tablet sulfamethox sulfamethox 2019-0 Yes Ryan Unknown Unknown azole 800 azole 800 10-13 Jossy DEWITT mg-trimetho mg-trimetho prim 160 mg prim 160 mg tablet tablet Levemir Levemir 2019- Yes Ryan Unknown Unknown FlexTouch FlexTouch 10-09 Jossy DEWITT U-100 U-100 Insulin 100 Insulin 100 unit/mL (3 unit/mL (3 mL) mL) subcutaneou subcutaneou s pen s pen aspirin 81 aspirin 81 2020-0 Yes Ryan Unknown Unknown mg chewable mg chewable - Jossy DEWITT tablet tablet calcium calcium 2019-0 Yes Ryan Unknown Unknown carbonate carbonate - Jossy DEWITT 600 mg 600 mg (1,500 (1,500 mg)-vitamin mg)-vitamin D3 400 unit D3 400 unit tablet tablet Cartia XT Cartia XT 2020-0 Yes Ryan Unknown Unknown 240 mg 240 mg - Jossy DEWITT capsule,ext capsule,ext ended ended release release ferrous ferrous 2020-0 Yes Ryan Unknown Unknown gluconate gluconate - Jossy DEWITT 324 mg 324 mg (37.5 mg (37.5 mg iron) iron) tablet tablet FiberCon FiberCon 2019-0 Yes Ryan Unknown Unknown 625 mg 625 mg - Jossy DEWITT tablet tablet fluticasone fluticasone 2019-0 Yes Ryan Unknown Unknown propionate propionate - Jossy DEWITT 50 50 mcg/actuati mcg/actuati on nasal on nasal spray,suspe spray,suspe nsion nsion Januvia 100 Januvia 100 2020-0 Yes Ryan Unknown Unknown mg tablet mg tablet 1-10 ,Jossy Levo-T 88 Levo-T 88 2020-0 Yes Ryan Unknown Unknown mcg tablet mcg tablet -10 ,Jossy magnesium magnesium 2020-0 Yes Ryan Unknown Unknown oxide 400 oxide 400 1-10 ,Jossy mg (241.3 mg (241.3 mg mg magnesium) magnesium) tablet tablet melatonin melatonin 2020-0 Yes Ryan Unknown Unknown 10 mg 10 mg -10 MD,Jossy tablet tablet memantine memantine 2020-0 2020- Yes Ryan Unknown Unknown 10 mg 10 mg -06 30- ,Jossy tablet tablet metFORMIN metFORMIN 2020-0 Yes Ryan Unknown Unknown 1,000 mg 1,000 mg -10 MD,Jossy tablet tablet metoprolol metoprolol 2020-0 Yes Ryan Unknown Unknown tartrate 50 tartrate 50 1-10 ,Jossy mg tablet mg tablet omeprazole omeprazole 2020-0 Yes Ryan Unknown Unknown 40 mg 40 mg -10 MD,Jossy capsule,del capsule,del ayed ayed release release Pravachol Pravachol 2020-0 Yes Ryan Unknown Unknown 40 mg 40 mg 1-10 ,Jossy tablet tablet Advair HFA Advair HFA 2020-0 Yes Ryan Unknown Unknown 45 mcg-21 45 mcg-21 -10 MDJossy mcg/actuati mcg/actuati on aerosol on aerosol inhaler inhaler memantine memantine 2020-0 Yes Ryan Unknown Unknown 10 mg 10 mg -10 ,Jossy tablet tablet PreserVisio PreserVisio 2020-0 Yes Ryan Unknown Unknown n AREDS-2 n AREDS-2 1-10 ,Jossy 250 mg-200 250 mg-200 unit-40 unit-40 mg-1 mg mg-1 mg capsule capsule Centrum Centrum 2020-0 Yes Ryan Unknown Unknown Complete 18 Complete 18 1-10 MDJossy mg-400 mcg mg-400 mcg tablet tablet valsartan valsartan 2020-0 Yes Ryan Unknown Unknown 320 mg 320 mg -10 ,Jossy tablet tablet acetaminoph acetaminoph 2020-0 Yes Ryan Unknown Unknown en 325 mg en 325 mg -10 MD,Jossy tablet tablet amoxicillin amoxicillin 2019-0 Yes Ryan Unknown Unknown 500 mg 500 mg 1-10 MD,Jossy capsule capsule Diabetic Diabetic 2019-0 Yes Ryan Unknown Unknown Tussin DM Tussin DM 1-10 MD,Jossy 10 mg-100 10 mg-100 mg/5 mL mg/5 mL oral liquid oral liquid hydrocortis hydrocortis 2019-0 Yes Ryan Unknown Unknown one acetate one acetate 1-10 MD,Jossy 25 mg 25 mg rectal rectal suppository suppository docusate docusate 2019-0 Yes Ryan Unknown Unknown sodium 100 sodium 100 1-10 ,Jossy mg capsule mg capsule glucose 4 glucose 4 2020-0 Yes Ryan Unknown Unknown gram gram 1-10 ,Jossy chewable chewable tablet tablet IBU 600 mg IBU 600 mg 2019-0 Yes Ryan Unknown Unknown tablet tablet 1-10 ,Jossy ondansetron ondansetron 2019-0 Yes Ryan Unknown Unknown 4 mg 4 mg 1-10 ,Jossy disintegrat disintegrat ing tablet ing tablet Vital Signs Vital Name Observation Time Observation Value Comments SYSTOLIC mm[Hg] 2019-10-19 18:09:58 130 mm[Hg] mm[Hg] Method: Sit DIASTOLIC mm[Hg] 2019-10-19 18:09:58 66 mm[Hg] mm[Hg] Method: Sit PULSE 2019-10-19 18:09:58 68 /min /min RESP RATE 2019-10-13 18:09:52 18 /min /min TEMP 2019-10-19 18:09:58 97.6 [degF] Procedures This patient has no known procedures. Results This patient has no known results.
--- OUTSIDE RECORDS SUMMARY | 2019-10-25 09:32 | XMS REPORT ---
:1930 Author Organization [facility] Care Team Providers Name Role Phone Unavailable Unavailable Unavailable Problems Condition Condition Condition Status Onset Resolution Last Treating Comments Name Details Category Date Date Treatment Clinician Date Hypertensiv Hypertensiv Diagnosis Active Speedy e heart e heart 09-30 Graves disease disease [id number] with heart with heart failure failure Heart Heart Diagnosis Active Speedy failure, failure, 09-30 Graves unspecified unspecified [id number] Polyosteoar Polyosteoar Diagnosis Active Speedy thritis, thritis, 09-30 Graves unspecified unspecified [id number] 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 09-30 Graves mellitus mellitus [id number] without without complicatio complicatio ns ns Pulmonary Pulmonary Diagnosis Active Speedy heart heart 09-30 Graves disease, disease, [id number] unspecified unspecified Paroxysmal Paroxysmal Diagnosis Active Speedy atrial atrial 09-30 Graves fibrillatio fibrillatio [id number] n n Obstructive Obstructive Diagnosis Active Speedy sleep apnea sleep apnea Graves (adult) (adult) [id number] (pediatric) (pediatric) 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 [id number] Hypothyroid Hypothyroid Diagnosis Active Speedy ism, ism, Graves unspecified unspecified [id number] Mixed Mixed Diagnosis Active Speedy hyperlipide hyperlipide Graves ze ze [id number] Obesity, Obesity, Diagnosis Active Speedy unspecified unspecified Graves [id number] 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 [id number] 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 [id number] 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 [id number] graft graft History of History of Diagnosis Active Speedy falling falling Graves [id number] Presence of 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 [id number] Personal Personal Diagnosis Active Speedy history of history of Graves nicotine nicotine [id number] 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 (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) (current) Graves use of use of [id number] insulin insulin 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 FCI Diagnosis Active Speedy (current) (current) Graves use of use of [id number] aspirin aspirin FCI FCI Diagnosis Active Speedy (current) (current) Graves use of use of [id number] non-steroid non-steroid al al anti-inflam anti-inflam matories [...] Unknown Speedy present y 1-10 Graves 14:15: [id number] Endo/Fidel diabetic Endo/Fidel Unknown Speedy foot care 1-10 Graves 14:15: [id number] Integument skin Integument Unknown Speedy integrity 1-10 Graves risk 14:15: [id number] 00 Elimination bowel Eliminatio Unknown Speedy incontinenc n 1-10 Graves e 14:15: [id number] Diagnoses knowledge/s Diagnoses Unknown 2020-0 Speedy kill 10-09 Graves deficit: pt 14:15: [id number] Musculoskel transfer Musculoske Unknown Speedy etal assistance letal - Graves required 14:15: [id number] 00 Musculoskel knowledge/s Musculoske Unknown Speedy etal kill letal - Graves deficit: pt 14:15: [id number] 00 Endo/Fidel insulin Endo/Fidel Unknown Speedy admn 10-12 Graves dependence 15:05: [id number] Endo/Fidel glucose Endo/Fidel Unknown Speedy testing 10-12 Graves dependence 15:05: [id number] Endo/Fidel diabetic Endo/Fidel Resolve 2019-10-13 Speedy foot care d 10-12 11:20:00 Graves 15:05: [id number] 00 Endo/Fidel anti-coagul Endo/Fidel Resolve 2019-10-13 Speedy ation d 10-12 11:20:00 Graves therapy 15:05: [id number] 00 Sensory learning Sensory Resolve 2019-10-13 Speedy deficit d 10-12 11:20:00 Graves 15:05: [id number] 00 Elimination urinary Eliminatio Resolve 2019-10-13 Ginny incontinenc n d 10-13 11:20:00 Suhas loaiza 11:20: 00 Safety risk for Safety Active Speedy hospitaliza 10-15 Graves tion 12:15: [id number] 00 Allergies, Adverse Reactions, Alerts Allergy Allergy Type Status Severity Reaction(s) Onset Inactive Treating Comments Name Date Date Clinician Levaquin Medication Active Unknown Severe Ginny Name ID emotional 10-08 Elena reaction [employer] [id number] latex Unknown Active Unknown Reaction Ginny Unknown 10-08 Elena [employer] [id number] camphor Base Active Unknown Reaction Ginny Ingredient Unknown 10-08 [facility] [id number] Medications Ordered Filled Start Stop Current Ordering Indication Dosage Frequency Signature Comments Components Medication Medication Date Date Medication? Clinician (SIG) Name Name Levemir Levemir 2020- Yes Ryan Unknown Unknown FlexTouch FlexTouch 10-09 Jossy DEWITT U-100 U-100 Insulin 100 Insulin 100 unit/mL (3 unit/mL (3 mL) mL) subcutaneou subcutaneou s pen s pen Levemir Levemir 2019-0 2020- Yes Ryan Unknown Unknown FlexTouch FlexTouch -06 30- Jossy DEWITT U-100 U-100 Insulin 100 Insulin 100 unit/mL (3 unit/mL (3 mL) mL) subcutaneou subcutaneou s pen s pen acyclovir acyclovir 2019-0 2020- Yes Ryan Unknown Unknown 400 mg 400 mg 10-04 Jossy DEWITT tablet tablet sulfamethox sulfamethox 2019-0 Yes Ryan Unknown Unknown azole 800 azole 800 10-13 Jossy DEWITT mg-trimetho mg-trimetho prim 160 mg prim 160 mg tablet tablet Levemir Levemir 2019-0 Yes Ryan Unknown Unknown FlexTouch FlexTouch 10-09 Jossy DEWITT U-100 U-100 Insulin 100 Insulin 100 unit/mL (3 unit/mL (3 mL) mL) [facility] aspirin 81 aspirin 81 2020-0 Yes Ryan Unknown Unknown mg chewable mg chewable - Jossy DEWITT tablet tablet calcium calcium 2019-0 Yes Ryan Unknown Unknown carbonate carbonate - Jossy DEWITT 600 mg 600 mg (1,500 (1,500 mg)-vitamin mg)-vitamin D3 400 unit D3 400 unit tablet tablet Cartia XT Cartia XT 2019-0 Yes Ryan Unknown Unknown 240 mg 240 mg - Jossy DEWITT capsule,ext capsule,ext ended ended release release ferrous ferrous 2019-0 Yes Ryan Unknown Unknown gluconate gluconate - [...] Ryan Unknown Unknown mg tablet mg tablet - Jossy DEWITT Levo-T 88 Levo-T 88 2020-0 Yes Ryan Unknown Unknown mcg tablet mcg tablet -10 ,Jossy magnesium magnesium 2020-0 Yes Ryan Unknown Unknown oxide 400 oxide 400 -10 ,Jossy mg (241.3 mg (241.3 mg mg magnesium) magnesium) tablet tablet melatonin melatonin 2020-0 Yes Ryan Unknown Unknown 10 mg 10 mg -10 MD,Jossy tablet tablet memantine memantine 2020-0 2020- Yes Ryan Unknown Unknown 10 mg 10 mg -06 30- ,Jossy tablet tablet metFORMIN metFORMIN 2019-0 Yes Ryan Unknown Unknown 1,000 mg 1,000 mg -10 MD,Jossy tablet tablet metoprolol metoprolol 2019-0 Yes Ryan Unknown Unknown tartrate 50 tartrate 50 - ,Jossy mg tablet mg tablet omeprazole omeprazole 2019-0 Yes Ryan Unknown Unknown 40 mg 40 mg - MD,Jossy capsule,del capsule,del ayed ayed release release Pravachol Pravachol 2019-0 Yes Ryan Unknown Unknown 40 mg 40 mg -10 ,Jossy tablet tablet Advair HFA Advair HFA 2019-0 Yes Ryan Unknown Unknown 45 mcg-21 45 mcg-21 -10 MDJossy mcg/actuati mcg/actuati on aerosol on aerosol inhaler inhaler memantine memantine 2019-0 Yes Ryan Unknown Unknown 10 mg 10 mg -10 ,Jossy tablet tablet PreserVisio PreserVisio 2020-0 Yes Ryan Unknown Unknown n AREDS-2 n AREDS-2 1-10 ,Jossy 250 mg-200 250 mg-200 unit-40 unit-40 mg-1 mg mg-1 mg capsule capsule Centrum Centrum 2020-0 Yes Ryan Unknown Unknown Complete 18 Complete 18 -10 MDJossy mg-400 mcg mg-400 mcg tablet tablet valsartan valsartan 2020-0 Yes Ryan Unknown Unknown 320 mg 320 mg -10 ,Jossy tablet tablet acetaminoph acetaminoph 2020-0 Yes Ryan Unknown Unknown en 325 mg en 325 mg -10 ,Jossy tablet tablet amoxicillin amoxicillin 2020-0 Yes Ryan Unknown Unknown 500 mg 500 mg -10 ,Jossy capsule capsule Diabetic Diabetic 2020-0 Yes Ryan Unknown Unknown Tussin DM Tussin DM -10 MD,Jossy 10 mg-100 10 mg-100 mg/5 mL mg/5 mL oral liquid oral liquid hydrocortis hydrocortis 2019-0 Yes Ryan Unknown Unknown one acetate one acetate 1-10 Jossy DEWITT 25 mg 25 mg rectal rectal suppository suppository docusate docusate 2019-0 Yes Ryan Unknown Unknown sodium 100 sodium 100 1-10 Jossy DEWITT mg capsule mg capsule glucose 4 glucose 4 2019-0 Yes Ryan Unknown Unknown gram gram 1-10 Jossy DEWITT chewable chewable tablet tablet IBU 600 mg IBU 600 mg 2019-0 Yes Ryan Unknown Unknown tablet tablet 1-10 MDJossy ondansetron ondansetron 2019-0 Yes Ryan Unknown Unknown 4 mg 4 mg 1-10 Jossy DEWITT disintegrat disintegrat ing tablet ing tablet Vital Signs Vital Name Observation Time Observation Value Comments SYSTOLIC mm[Hg] 2019-10-15 18:09:54 120 mm[Hg] mm[Hg] Method: Sit DIASTOLIC mm[Hg] 2019-10-15 18:09:54 60 mm[Hg] mm[Hg] Method: Sit PULSE 2019-10-15 18:09:54 64 /min /min RESP RATE 2019-10-13 18:09:52 18 /min /min TEMP 2019-10-15 18:09:54 97.9 [degF] Procedures This patient has no known procedures. Results This patient has no known results.
--- OUTSIDE RECORDS SUMMARY | 2019-10-25 09:32 | XMS REPORT ---
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 with heart with heart failure failure Heart Heart Diagnosis Active Speedy failure, failure, 09-30 Graves unspecified unspecified [id number] Polyosteoar Polyosteoar Diagnosis Active Speedy thritis, thritis, 09-30 Graves unspecified unspecified [id number] 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 09-30 Graves mellitus mellitus [id number] without without complicatio complicatio ns ns Pulmonary Pulmonary Diagnosis Active Speedy heart heart 09-30 Graves disease, disease, [id number] unspecified unspecified Paroxysmal Paroxysmal Diagnosis Active Speedy atrial atrial 09-30 Graves fibrillatio fibrillatio [id number] n n Obstructive Obstructive Diagnosis Active Speedy sleep apnea sleep apnea Graves (adult) (adult) [id number] (pediatric) (pediatric) 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 [id number] Hypothyroid Hypothyroid Diagnosis Active Speedy ism, ism, Graves unspecified unspecified [id number] Mixed Mixed Diagnosis Active Speedy hyperlipide hyperlipide Graves ze ze [id number] Obesity, Obesity, Diagnosis Active Speedy unspecified unspecified Graves [id number] 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 [id number] 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 [id number] 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 [id number] graft graft History of History of Diagnosis Active Speedy falling falling Graves [id number] Presence of 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 [id number] Personal Personal Diagnosis Active Speedy history of history of Graves nicotine nicotine [id number] dependence dependence director long term care director long term care Diagnosis Active Speedy (current) (current) Graves use of use of [id number] insulin insulin director long term care group home Diagnosis Active Speedy (current) (current) Graves use of use of [id number] aspirin aspirin group home group home Diagnosis Active Speedy (current) (current) Graves use of use of [id number] non-steroid non-steroid al al anti-inflam anti-inflam matories [...] Unknown Speedy present y 1-10 Graves 14:15: [id number] Endo/Fidel diabetic Endo/Fidel Unknown Speedy foot care 1-10 Graves 14:15: [id number] Integument skin Integument Unknown Speedy integrity 1-10 Graves risk 14:15: [id number] Elimination bowel Eliminatio Unknown Speedy incontinenc n 1-10 Graves e 14:15: [id number] Diagnoses knowledge/s Diagnoses Unknown 2020-0 Speedy kill - Graves deficit: pt 14:15: [id number] Musculoskel transfer Mus[place] Unknown Speedy etal assistance letal - Graves required 14:15: [id number] Musculoskel knowledge/s [place] Unknown Speedy etal kill letal - Graves deficit: pt 14:15: [id number] Endo/Fidel insulin Endo/Fidel Unknown Speedy admn 10-12 Graves dependence 15:05: [id number] Endo/Fidel glucose Endo/Fidel Unknown Speedy testing 10-12 Graves dependence 15:05: [id number] Endo/Fidel diabetic Endo/Fidel Resolve 2019-10-13 Speedy foot care d 10-12 11:20:00 Graves 15:05: [id number] Endo/Fidel anti-coagul Endo/Fidel Resolve 2019-10-13 Speedy ation d 10-12 11:20:00 Graves therapy 15:05: [id number] 00 Sensory learning Sensory Resolve 2019-10-13 Speedy deficit d 10-12 11:20:00 Graves 15:05: [id number] 00 Elimination urinary Eliminatio Resolve 2019-10-13 Ginny incontinenc n d 10-13 11:20:00 Suhas loaiza 11:20: 00 Safety risk for [facility] tion 15:15: [id number] Activity knowledge/s Activity Active Speedy kill 10-19 Graves deficit: pt 15:30: [id number] 00 Activity self-care Activity Active Speedy deficit 10-19 Graves 15:30: [id number] 00 Allergies, Adverse Reactions, Alerts Allergy Allergy Type Status Severity Reaction(s) Onset Inactive Treating Comments Name Date Date Clinician Levaquin Medication Active Unknown Severe Ginny Name ID emotional 10-08 Elena reaction [employer] [id number] latex Unknown Active Unknown Reaction Ginny Unknown 10-08 Elena [employer] [id number] [employer] Active Unknown Reaction Ginny Ingredient Unknown 10-08 Elena [employer] [id number] Medications Ordered Filled Start Stop Current Ordering [...] 100 unit/mL (3 unit/mL (3 mL) mL) subcutane subcutaneou s pen s pen aspirin 81 aspirin 81 2020-0 Yes Ryan Unknown Unknown mg chewable mg chewable - Jossy DEWITT tablet tablet calcium calcium 2020-0 Yes Ryan Unknown Unknown carbonate carbonate - [...] Unknown Unknown 1,000 mg 1,000 mg -10 MD,[facility] tablet tablet metoprolol metoprolol 2020-0 Yes Ryan [...] Unknown Unknown Complete 18 Complete 18 1-10 ,Jossy mg-400 mcg mg-400 mcg tablet tablet valsartan valsartan 2020-0 Yes Ryan Unknown Unknown 320 mg 320 mg -10 ,Jossy tablet tablet acetaminoph acetaminoph 2020-0 Yes Ryan Unknown Unknown en 325 mg en 325 mg -10 Jossy DEWITT tablet tablet amoxicillin amoxicillin 2020-0 Yes Ryna Unknown Unknown 500 mg 500 mg 1-10 Jossy DEWITT capsule capsule Diabetic Diabetic 2020-0 Yes Ryan Unknown Unknown Tussin DM Tussin DM 1-10 MD,Jossy 10 mg-100 10 mg-100 mg/5 mL mg/5 mL oral liquid oral liquid hydrocortis hydrocortis 2020-0 Yes Ryan Unknown Unknown one acetate one acetate 1-10 ,Jossy 25 mg 25 mg rectal rectal suppository suppository docusate docusate 2020-0 Yes Ryan Unknown Unknown sodium 100 sodium 100 1-10 Jossy DEWITT mg capsule mg capsule glucose 4 glucose 4 2020-0 Yes Ryan Unknown Unknown gram gram 1-10 Jossy DEWITT chewable chewable tablet tablet IBU 600 mg IBU 600 mg 2019-0 Yes Ryan Unknown Unknown tablet tablet 1-10 Jossy DEWITT ondansetron ondansetron 2020-0 Yes Ryan Unknown Unknown 4 mg 4 [...]
--- OUTSIDE RECORDS SUMMARY | 2019-10-25 09:32 | XMS REPORT ---
:1930 Author Organization [facility] Care Team Providers Name Role Phone Unavailable Unavailable Unavailable Problems Condition Condition Condition Status Onset Resolution Last Treating Comments Name Details Category Date Date Treatment Clinician Date 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 -08 Graves mellitus mellitus [id number] without without complicatio complicatio ns ns Infection s/s of Infection Resolve 2019-10-13 Natalie [...] 10:30: 00 Endo/Fidel glucose Endo/Fidel Resolve 2019-10-13 Natlaie testing d 1-10 11:20:00 Vallely dependence 10:30: [...] 00 Safety knowledge/s Safety Resolve 2019-10-13 Natalie hill d 1-10 11:20:00 Vallely deficit: pt 10:30: 00 Safety fall risk Safety Resolve 2019-10-13 Natalie loyd d 1-10 11:20:00 Vallely present 10:30: 00 Safety risk for Safety Resolve 2019-10-13 Natalie neville d 1-10 11:20:00 Vallely tion 10:30: 00 Safety can be left Safety Resolve 2019-10-13 Natalie linda for d 1-10 11:20:00 Vallely only short 10:30: periods 00 Medication oral med Meds Resolve 2019-10-09 Natalie assistance d 1-10 10:30:00 Vallely required 10:30: 00 Medication injectable Meds Resolve 2019-10-09 Natalie med d 1-10 10:30:00 Vallely assistance 10:30: required 00 Medication knowledge/s Meds Resolve 2019-10-09 Natalie kill d 1-10 10:30:00 Vallely deficit: pt 10:30: 00 Diagnoses knowledge/s Diagnoses Active Natalie kill 1-10 Vallely deficit: pt 10:30: 00 Musculoskel transfer Musculoske Resolve 2019-10-13 Natalie etal assistance letal d 1-10 11:20:00 Vallely required 10:30: 00 Musculoskel knowledge/s Musculoske Resolve 2019-10-13 Natalie etal kill letal d 1-10 11:20:00 Vallely deficit: pt 10:30: 00 Musculoskel requires Musculoske Resolve 2019-10-13 Natalie etal human letal d 1-10 11:20:00 Vallely assist to 10:30: leave home 00 Respiratory dyspnea Respirator Unknown Speedy present y 1-10 Graves 14:15: [id number] Endo/Fidel diabetic Endo/Fidel Unknown Speedy foot care 1-10 Graves 14:15: [id number] 00 Integument skin Integument Unknown Speedy integrity 1-10 Graves risk 14:15: [id number] 00 Elimination bowel Eliminatio Unknown Speedy incontinenc n - Graves e 14:15: [id number] Diagnoses knowledge/s Diagnoses Unknown Speedy kill 10-09 Graves deficit: pt 14:15: [id number] 00 Musculoskel transfer Mus[place] Unknown Speedy etal assistance letal 10-09 Graves required 14:15: [id number] 00 Musculoskel knowledge/s [place] Unknown Speedy etal kill letal 10-09 Graves deficit: pt 14:15: [id number] 00 Endo/Fidel insulin Endo/Fidel Unknown Speedy admn 10-12 Graves dependence 15:05: [id number] 00 Endo/Fidel glucose Endo/Fidel Unknown Speedy testing 10-12 Graves dependence 15:05: [id number] 00 Endo/Fidel diabetic Endo/Fidel Resolve 2019-10-13 Speedy foot care d 10-12 11:20:00 Graves 15:05: [id number] 00 Endo/Fidel anti-coagul Endo/Fidel Resolve 2019-10-13 Speedy ation d 10-12 11:20:00 Graves therapy 15:05: [id number] 00 Sensory learning Sensory Resolve 2019-10-13 Speedy deficit d 10-12 11:20:00 Graves 15:05: [id number] 00 Elimination urinary Eliminatio Resolve 2019-10-13 Ginny incontinenc n d 10-13 11:20:00 Dai e 11:20: 00 Allergies, Adverse Reactions, Alerts Allergy Allergy Type Status Severity Reaction(s) Onset Inactive Treating Comments Name Date Date Clinician Levaquin Medication Active Unknown Severe Ginny Name ID emotional 10-08 Elena reaction [employer] [id number] latex Unknown Active Unknown Reaction Ginny Unknown 10-08 Elena [employer] [id number] [employer] Active Unknown Reaction Ginny Ingredient Unknown 10-08 Elena [employer] [id number] Medications Ordered Filled Start Stop Current Ordering Indication Dosage Frequency Signature Comments Components Medication Medication Date Date Medication? Clinician (SIG) Name Name Levemir Levemir 2020- Yes Ryan Unknown Unknown FlexTouch FlexTouch 10-09 Jossy DEWITT U-100 U-100 Insulin 100 Insulin 100 unit/mL (3 unit/mL (3 mL) mL) [facility] s pen Levemir Levemir 2019-0 2020- Yes Ryan Unknown Unknown FlexTouch FlexTouch 10-09 Jossy DEWITT U-100 U-100 Insulin 100 Insulin 100 unit/mL (3 unit/mL (3 mL) mL) [facility] acyclovir acyclovir 2019-0 2020- Yes Ryan Unknown Unknown 400 mg 400 mg 10-04 Jossy DEWITT tablet tablet sulfamethox sulfamethox 2019-0 Yes Ryan Unknown Unknown azole 800 azole 800 10-13 Jossy DEWITT mg-trimetho mg-trimetho prim 160 mg prim 160 mg tablet tablet Levemir Levemir 2019-0 Yes Ryan Unknown Unknown FlexTouch FlexTouch - Jossy DEWITT U-100 U-100 Insulin 100 Insulin 100 unit/mL (3 unit/mL (3 mL) mL) [facility] aspirin 81 aspirin [...] Ryan Unknown Unknown oxide 400 oxide 400 - ,Jossy mg (241.3 mg (241.3 mg mg magnesium) magnesium) tablet tablet melatonin melatonin 2020-0 Yes Ryan Unknown Unknown 10 mg 10 mg -10 MD,Jossy tablet tablet memantine memantine 2020-0 2020- Yes Ryan Unknown Unknown 10 mg 10 mg -06 30- MD,Jossy tablet tablet metFORMIN metFORMIN 2020-0 Yes Ryan Unknown Unknown 1,000 mg 1,000 mg -10 MD,Jossy tablet tablet metoprolol metoprolol 2020-0 Yes Ryan Unknown Unknown tartrate 50 tartrate 50 -10 MD,Jossy mg tablet mg tablet omeprazole omeprazole 2020-0 Yes Ryan Unknown Unknown 40 mg 40 mg - MD,Jossy capsule,del capsule,del ayed ayed release release Pravachol Pravachol 2020-0 Yes Ryan Unknown Unknown 40 mg 40 mg -10 MD,Jossy tablet tablet Advair HFA Advair HFA 2020-0 [...] mg -10 MD,Jossy tablet tablet amoxicillin amoxicillin 2020-0 Yes Ryan Unknown Unknown 500 mg 500 mg -10 MD,Jossy capsule capsule Diabetic Diabetic 2020-0 Yes Ryan [...] Observation Time Observation Value Comments SYSTOLIC mm[Hg] 2019-10-13 18:09:52 124 mm[Hg] mm[Hg] Method: Sit DIASTOLIC mm[Hg] 2019-10-13 18:09:52 66 mm[Hg] mm[Hg] Method: Sit PULSE 2019-10-13 18:09:52 66 /min /min RESP RATE 2019-10-13 18:09:52 18 /min /min TEMP 2019-10-13 18:09:52 98 [degF] Procedures This patient has no known procedures. Results This patient has no known results.
--- OUTSIDE RECORDS SUMMARY | 2019-10-25 09:32 | XMS REPORT | Continuity of Care Document ---
:1930 External Reference #:[id number] Author Name Maura Dyer N.P. (transmitted by agent of provider Tabitha Chung) Address [address] [place] [address] Care Team Providers Name Role Phone Kami Bob MD - Internal Care Team Information Public Service Representative Medicine Problems Active Problems Provider Date Type [...] Medications SIG Qnty Indications Ordering Date Provider Patrice 12 Hour 10 milliliters by 118ml Latha Blanco, Cough Relief mouth every 4-6 h as N.P. 0 needed cough 30mg/5ML Suer Zofran every 6 hours 12tabs Latha Blanco, 4mg Tablets N.P. 0 Imodium A-D take 1-2 tablets as Jossy Davis MD 2mg needed 0 Capsules Bactrim DS one by mouth twice a 14tabs N39.0 Latha Blanco, day for 7 days N.P. 0 800-160mg Tablets Clotrimazole/Betame apply twice daily to 45gm R21 Latha Blanco thasone three times daily N.P. 0 Dipropionate 1-0.05% Cream Memantine HCL 1 tab by mouth twice 60tabs R41.3 Gomez Elmo, 10mg a day N.P. 9 Tablets Depend Adjustable use three times a 100units Kami Bob, Underwear L/XL day and as needed M.D. 9 [facility] [employer] provide 1units Florencia Oreilly, necessary cpap 9 supplies, mask to fit, tubing , head gear, filters Onetouch Ultrasoft Test three times 100units Kami Bob, Lancets daily or as directed M.D. 9 [facility] dx E11.21 Melatonin 1 capsule at bedtime 90caps R41.3 Tico 10mg Sher, M.D. 9 Capsules Omeprazole 1 by mouth every day 90caps K21.9 Kami Bob, 40mg M.D. [address] Fibercon one a day 90tabs K59.1 Kami Bob, 625mg M.D. 9 Tablets Valsartan 1 by mouth every day 90tabs I10 Kami Bob, 320mg M.D. 8 Tablets BD Uf Orig Pen NDL Use Once Daily With 100units Kami Bob, 12.1MRP57B Lantus M.D. 8 Levemir Flextouch inject 33 15units Kami Bob, subcutaneously every M.D. 8 100Unit/ML Solution day - hold if bs<100 Pen-Inject Onetouch Verio use as directed 1units Kami Bob, M.D. 8 w/Device Kit Onetouch Verio use for testing two 100units E11.8 Wilbur Maria NP times a day and as 8 Strips needed Januvia take 1 tab by mouth 90tabs [...] Calcium take 1 tab by mouth 60tabs Karen Gonzalez, Carbonate-Vitamin D twice daily for bone [address] [id number] Tablets Multi-Vitamin/[place] 1 tab by mouth every 30tabs Kami [...] 5 45-21mcg/Act for lung disease Aerosol Fluticasone spray 1 sprays each 16units J01.80 Latha Blanco, Propionate nostril everyday N.P. 5 50mcg/Act Suspension Levothyroxine take 1 tab by mouth 90tabs Kami Bob, Sodium every day 6 days a M.D. 2 88mcg week only Tablets Blood Pressure Cuff as directed 1units I10 Susannah Varela, Large M.D. 2 [facility] Entrust Plus at at bedtime and as 240units R32 Kami Bob, Undergarments needed M.D. 1 [facility] N39.46 Acyclovir take 1 tablet by mouth Unknown 400mg Tablets four times a day x10 days for shingles Acetaminophen 2 every 6 hours as 180tabs Latha Blanco, 325mg Tablets needed for pain not to N.P. exceed 2gms/day Hemmorex-HC insert 1 rectally 2 Unknown 25mg times a day for 1 week Suppository then as needed there after for hemorrhoids Ferrous Gluconate Take 1 Tablet By Mouth 60tabs Kami Bob, 324(38Fe) 2 Times Daily For Bone M.D. mg Tablets Health Metformin HCL Take 1 Tablet By Mouth 60tabs Kami Bob, 1000mg Twice Daily For M.D. Tablets Diabetes Aspirin take 1 tablet by mouth 30units Kami Bob, 81mg Chewtabs every day dx: heart M.D. disease Magnesium Oxide Take One Tablet By 60tabs Kami Bob, 400mg Mouth Twice Daily M.D. Tablets (Lunch & Bedtime) DX: Supplement Ibuprofen 1 tablet by mouth 180tabs Latha Varn, 600mg Tablets every 4-6 hours as N.P. needed Glucose 2 chewtabs as needed 30units Kami Bob, 4gm Chewtabs hypoglycemia M.D. Amoxicillin 4 capsules 1 hour 4caps Kami Bob, 500mg Capsules before dental work M.D. Colace 2 caps by mouth every 30caps Kami Bob, 100mg Capsules day as needed for M.D. constipation [place] And Floss Upper Not on Mar Unknown [...] Medications Memantine HCL 2 tab twice a 120tabs R41.3 Gomez Borrego, 05/26/2019 - 5mg day N.P. 09/28/2019 Tablets Medications Administered in Office Medication SIG Qnty Indications Ordering Provider Date NICKY Bob M.D. 09/18/2017 Injection NICKY Varela M.D. 09/18/2017 Injection PPD Susannah Varela M.D. 02/28/2016 Injection Immunizations CPT Code Status Date Vaccine Lot # [id number] Given 09/08/2017 Tdap - Tetanus/Diptheria/Acellular Pertussis 45734 Given 05/06/2017 Influenza Virus Vaccine, Quadrivalent, Split, Preservative Free 44514 Given 03/28/2017 Pneumonia Vaccine [id number] 24077 Given 07/20/2015 Influenza Virus Vaccine, Quadrivalent, Split, Preservative Free 42217 Given 08/31/2014 Pneumococcal Conjugate Vaccine 13 Valent For [id number] Intramuscular Use Q2039 Given 07/07/2014 Flu Vaccine NOS 35515 Given 07/29/2013 Influenza Virus 3Yrs & Over Q2038 Given 06/26/2011 Fluzone Vaccine [id number] 61064 Given 08/20/1994 Pneumococcal Conjugate Vaccine 7 Valent [...] Result H/L Range Note Laboratory test 10/06/2019 [facility] In House Hemoglobin A1c 6.4 5-7 finding Urinalysis Profile 10/02/2019 [facility] Urine Color Yellow [address] [place] [address] [phone] Urine Appearance Cloudy Urine Specific Stitzer 1.008 Low 1.010-1.030 Urine pH 7.0 Normal [...] Present Abnormal Absent Urine Culture And 10/02/2019 [facility] Urine Culture SEE RESULT [address] [place] [address] [phone] Comp Metabolic 10/02/2019 [facility] Sodium 133 mmol/L Low 135 -[address] [place] [address] [phone] Potassium 3.8 mmol/L Normal 3.5-5.0 Chloride 96 [...] Egfr 119.0 >60 3 CBC Auto 10/02/2019 [facility] White Blood 9.2 10^3/uL Normal 3.5-10.[address] [place] [address] [phone] Red Blood Count 4.55 10^6/uL Normal 3.70-4.87 [...] Blood Cells % 0.1 Laboratory test 10/02/2019 [facility] Lactic Acid 1.0 mmol/L Normal 0.5-2.0 [address] [place] [id number] [phone] 1 *Ascorbic acid is present which may interfere with detection of blood. 2 SEE RESULT BELOW Name: JYOTHI KEENE V : [address]: Pritesh Rodriguez MD Acct: [id number] Unit: [id number] AGE: 89 Location: ED Re10/02/19 SEX: F Status: DEP ER SPEC: [id number] ROWAN: 10/02/[address] [facility] [address]: Baltazar BROWN REQ: [id number] RECD: 10/02/19 STATUS: KARINA GARIBAY DR: Kami Rodriguez MD _ SOURCE: URINE SPDESC: ORDERED: Urine Culture Procedure Result Reported Site Urine Culture Final 10/04/19- 42 ML Organism 1 ESCHERICHIA COLI [place] Count >100,000 (Many) CFU/ML 1. ESCHERICHIA COLI [...] . END OF REPORT DEPARTMENT OF PATHOLOGY, [address] [place] [address] Moses Bernard M.D. Director [facility] # [id number] 3 Because ethnic data is not always [...] 5 Kidney failure <15 (or dialysis) 4 NJS Severe Sepsis and Septic Shock Management Bundle Measure requires all lactic acids initially measuring >2.0 mmol/L be repeated. Procedures Date Code Description Status 05/21/2019 20197 Pace Maker Eval W/Iterative Adjment Dual Lead Completed 05/21/2019 73483 Pace Maker Eval W/Iterative Adjment Dual Lead Completed 03/19/2019 [id number] Diabetic Retinal Eye Exam Completed 09/26/2018 601292506 Diabetic Retinal Eye Exam Completed 09/12/2017 [id number] Diabetic Retinal Eye Exam Completed 04/04/2017 135362340 Bone Mineral Density Test Completed 03/21/2017 [id number] Diabetic Retinal Eye Exam Completed 09/20/2016 [id number] Diabetic Retinal Eye Exam Completed 03/15/2016 [id number] Diabetic Retinal Eye Exam Completed 09/15/2015 [id number] Diabetic Retinal Eye Exam Completed 03/24/2015 [id number] Bone Mineral Density Test Completed 03/24/2015 82343737 Mammogram Completed 03/10/2015 [id number] Diabetic Retinal Eye Exam Completed 09/09/2014 456666762 Diabetic Retinal Eye Exam Completed 03/23/2014 53362906 Mammogram Completed 09/18/2013 347093691 Diabetic Retinal Eye Exam Completed 09/17/2013 820392571 Diabetic Retinal Eye Exam Completed 02/03/2013 75621630 Mammogram Completed 09/19/2012 080968395 Diabetic Retinal Eye Exam Completed 03/10/2012 723714899 Bone Mineral Density Test Completed 11/29/2011 62324465 Colonoscopy Completed 09/10/2011 344592864 Diabetic Foot Exam Completed 05/01/2011 020552275 Bone Mineral Density Test Completed Medical Devices Description No Information Available Encounters Type Date Location Provider Dx Diagnosis Office Visit 10/06/2019 Video Production Coordinator Internal Latha Balnco, E11.9 Type 2 diabetes 10:20a Medicine - [facility] N.P. mellitus without complications R55 Syncope and collapse N39.0 Urinary tract infection, site not specified R26.81 Unsteadiness on feet R21 Rash and other nonspecific skin eruption Office Visit 09/28/2019 10:00a [facility], R41.3 Other amnesia Services [facility] N.P. 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 I10 Essential (primary) hypertension I49.5 Sick sinus syndrome Z95.0 Presence of cardiac pacemaker Office Visit 05/21/2019 3:40p [facility] Mallory Felder, I48.0 Paroxysmal atrial [facility] M.D. fibrillation I49.5 Sick sinus syndrome Z95.0 Presence of cardiac pacemaker I25.10 Athscl heart disease [place] coronary artery w/o ang pctrs E78.2 Mixed hyperlipidemia R47.01 Aphasia I10 Essential (primary) hypertension G47.33 Obstructive sleep apnea (adult) (pediatric) E66.9 Obesity, unspecified E11.8 Type 2 diabetes mellitus with unspecified complications I34.0 Nonrheumatic mitral (valve) insufficiency Assessments Date Code Description Provider 10/06/2019 E11.9 Type 2 diabetes mellitus without Latha Blanco, N.P. complications 10/06/2019 R55 Syncope and collapse Latha Blanco, N.P. 10/06/2019 N39.0 Urinary tract infection, site not specified Latha Blanco, N.P. 10/06/2019 R26.81 Unsteadiness on feet Latha Blanco, N.P. 10/06/2019 R21 Rash and other nonspecific skin eruption Latha Blanco, N.P. 09/28/2019 R41.3 Other amnesia Gomez Borrego, N.P. 09/28/2019 I25.10 Atherosclerotic heart disease of [place] Gomez Borrego, N.P. coronary artery without angina [...] fibrillation Megha Desir MD 05/26/2019 R41.3 Other esia Gomez Borrego, N.P. 05/26/2019 I10 Essential (primary) [...] Schedule 05/21/2019 I25.10 Atherosclerotic heart disease [place] Mallory Felder M.D. coronary artery without angina [...] Mallory Felder M.D. Plan of Treatment Future Appointment(s):11/03/2019 10:00 am - Ica Pacer Schedule at [facility]11/03/2019 10:30 am - Maura Dyer N.P. at [facility]04/05/2020 11:10 am - Kami Bob M.D. at [facility] Internal Medicine - [facility]02/09/2020 10:15 am - Tico Olivarez M.D. at [facility]03/10/2020 10:30 am - Nathalie Valentin NP at [facility]11/24/2019 2:00 pm - Megha Desir MD at [facility] Ibgdtqgdkr64/07/2020 - Latha Blanco N.P.E11.9 Type 2 diabetes mellitus without [id number] Syncope and collapseComments:I suspect your fall out [...] persist call the office.R26.81 Unsteadiness on feetNew Therapy:Occupational TherapyPhysical TherapyComments:To help you get stronger and to improve your balance I have ordered physical and occupational therapy.R21 Rash and other nonspecific skin eruptionNew Medication:Clotrimazole/Betamethasone Dipropionate 1-0.05 % - apply twice daily to three times dailyComments:For your rash I have prescribed Clortrimazole/Betamethasone cream. Apply this twice daily until the rash clears. Functional Status Functional Condition Comment Date Status Rolling walker is used to ambulate Active Mental Status Description No Information Available Referrals Description No Information Available
--- OUTSIDE RECORDS SUMMARY | 2019-10-25 09:32 | XMS REPORT ---
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 Heart Heart Diagnosis Active Speedy failure, failure, 09-30 Graves unspecified unspecified [id number] Polyosteoar Polyosteoar Diagnosis Active Speedy thritis, thritis, 09-30 Graves unspecified unspecified [id number] 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 09-30 Graves mellitus mellitus [id number] without without complicatio complicatio ns ns Pulmonary Pulmonary Diagnosis Active Speedy heart heart 09-30 Graves disease, disease, [id number] unspecified unspecified Paroxysmal Paroxysmal Diagnosis Active Speedy atrial atrial 09-30 Graves fibrillatio fibrillatio [id number] n n Obstructive Obstructive Diagnosis Active Speedy sleep apnea sleep apnea Graves (adult) (adult) [id number] (pediatric) (pediatric) 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 [id number] Hypothyroid Hypothyroid Diagnosis Active Speedy ism, ism, Graves unspecified unspecified [id number] Mixed Mixed Diagnosis Active Speedy hyperlipide hyperlipide Graves ze ze [id number] Obesity, Obesity, Diagnosis Active Speedy unspecified unspecified Graves [id number] 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 [id number] 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 [id number] 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 [id number] graft graft History of History of Diagnosis Active Speedy falling falling Graves [id number] Presence of 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 [id number] Personal Personal Diagnosis Active Speedy history of history of Graves nicotine nicotine [id number] dependence 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 (current) (current) Graves use of use of [id number] insulin insulin 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 skilled nursing Diagnosis Active Speedy (current) (current) Graves use of use of [id number] aspirin aspirin skilled nursing skilled nursing Diagnosis Active Speedy (current) (current) Graves use of use of [id number] non-steroid non-steroid al al anti-inflam anti-inflam matories [...] Unknown Speedy present y 1-10 Graves 14:15: [id number] Endo/Fidel diabetic Endo/Fidel Unknown Speedy foot care 1-10 Graves 14:15: [id number] 00 Integument skin Integument Unknown Speedy integrity 1-10 Graves risk 14:15: [id number] 00 Elimination bowel Eliminatio Unknown Speedy incontinenc n 1-10 Graves e 14:15: [id number] Diagnoses knowledge/s Diagnoses Unknown 2020-0 Speedy kill 10-09 Graves deficit: pt 14:15: [id number] 00 Musculoskel transfer Musculoske Unknown Speedy etal assistance letal - Graves required 14:15: [id number] Musculoskel knowledge/s Musculoske Unknown Speedy etal kill letal - Graves deficit: pt 14:15: [id number] 00 Endo/Fidel insulin Endo/Fidel Unknown Speedy admn 10-12 Graves dependence 15:05: [id number] Endo/Fidel glucose Endo/Fidel Unknown Speedy testing 10-12 Graves dependence 15:05: [id number] Endo/Fidel diabetic Endo/Fidel Resolve 2019-10-13 Speedy foot care d 10-12 11:20:00 Graves 15:05: [id number] 00 Endo/Fidel anti-coagul Endo/Fidel Resolve 2019-10-13 Speedy ation d 10-12 11:20:00 Graves therapy 15:05: [id number] 00 Sensory learning Sensory Resolve 2019-10-13 Speedy deficit d 10-12 11:20:00 Graves 15:05: [id number] 00 Elimination urinary Eliminatio Resolve 2019-10-13 Ginny incontinenc n d 10-13 11:20:00 Suhas loaiza 11:20: 00 Safety risk for Safety Active Speedy hospitaliza 10-15 Graves tion 12:15: [id number] 00 Allergies, Adverse Reactions, Alerts Allergy Allergy Type Status Severity Reaction(s) Onset Inactive Treating Comments Name Date Date Clinician Levaquin Medication Active Unknown Severe Ginny Name ID emotional 10-08 Elena reaction [employer] [id number] latex Unknown Active Unknown Reaction Ginny Unknown 10-08 Elena [employer] [id number] camphor Base Active Unknown Reaction Ginny Ingredient Unknown 10-08 [facility] [id number] Medications Ordered Filled Start Stop Current Ordering [...] Yes Ryan Unknown Unknown FlexTouch FlexTouch 10-09 Josys DEWITT U-100 U-100 Insulin 100 Insulin 100 unit/mL (3 unit/mL (3 mL) mL) subcunm hospitalne subcunm hospitalne s pen s pen aspirin 81 [...]
--- OUTSIDE RECORDS SUMMARY | 2019-10-25 09:32 | XMS REPORT ---
:1930 Author Organization [facility] Care Team Providers Name Role Phone Unavailable Unavailable Unavailable Problems Condition Condition Condition Status Onset Resolution Last Treating Comments Name Details Category Date Date Treatment Clinician Date Type 2 Type 2 Diagnosis Active Ginny diabetes diabetes -08 Dai mellitus mellitus without without complicatio complicatio ns ns Sensory learning Sensory Active Speedy deficit - Graves 14:15: [id number] Endo/Fidel insulin Endo/Fidel Active Natalie admn - [place] dependence 15:08: 59 Endo/Fidel glucose Endo/Fidel Active Natalie testing 10-09 [place] dependence 15:08: 59 Endo/Fidel anti-coagul Endo/Fidel Active Natalie ation 1- [place] therapy 15:08: 59 Allergies, Adverse Reactions, Alerts Allergy Allergy Type Status Severity Reaction(s) Onset Inactive Treating Comments Name Date Date Clinician Levaquin Medication Active Unknown Severe Ginny Name ID emotional 10-08 Elena reaction [employer] [id number] latex Unknown Active Unknown Reaction Ginny Unknown 10-08 Elena [employer] [id number] camphor Base Active Unknown Reaction Ginny Ingredient Unknown 10-08 [facility] [id number] Medications Ordered Filled Start Stop Current Ordering Indication Dosage Frequency Signature Comments Components Medication Medication Date Date Medication? Clinician (SIG) Name Name Levemir Levemir 2020- Yes Ryan Unknown Unknown FlexTouch FlexTouch 10-09 Jossy DEWITT U-100 U-100 Insulin 100 Insulin 100 unit/mL (3 unit/mL (3 mL) mL) subcutaneou subcutaneou s pen s pen Levemir Levemir 2019- Yes Ryan Unknown Unknown FlexTouch FlexTouch 1-10-09 MDJossy U-100 U-100 Insulin 100 Insulin 100 unit/mL (3 unit/mL (3 mL) mL) [facility] s pen s pen acyclovir acyclovir 2019-0 2020- Yes Ryan Unknown Unknown 400 mg 400 mg 10-04 Jossy DEWITT tablet tablet Levemir Levemir 2019-0 Yes Ryan Unknown Unknown FlexTouch FlexTouch - MDJossy U-100 U-100 Insulin 100 Insulin 100 unit/mL (3 unit/mL (3 mL) mL) [facility] s pen s pen aspirin 81 aspirin 81 2020-0 Yes Ryan Unknown Unknown mg chewable mg chewable - Greyson DEWITTwal tablet tablet calcium calcium 2019-0 Yes Ryan [...] Unknown Unknown 625 mg 625 mg - Greyson DEWITTwal tablet tablet fluticasone fluticasone 2019-0 Yes Ryan Unknown Unknown propionate propionate - Jossy DEWITT 50 50 mcg/actuati mcg/actuati on nasal on nasal spray,suspe spray,suspe nsion nsion Januvia 100 Januvia 100 2020-0 Yes Ryan Unknown Unknown mg tablet mg tablet -10 MDJossy Levo-T 88 Levo-T 88 2019-0 Yes Ryan Unknown Unknown mcg tablet mcg tablet -10 Jossy DEWITT magnesium magnesium 2019-0 Yes Ryan Unknown Unknown oxide 400 oxide 400 - Jossy DEWITT mg (241.3 mg (241.3 mg mg magnesium) magnesium) tablet tablet melatonin melatonin 2019-0 Yes Ryan Unknown Unknown 10 mg 10 mg - MDJossy tablet tablet memantine memantine 0 2020- Yes Ryan Unknown Unknown 10 mg 10 mg -06 30- MDJossy tablet tablet metFORMIN metFORMIN 2020-0 Yes Ryan Unknown Unknown 1,000 mg 1,000 mg -10 MDJossy tablet tablet metoprolol metoprolol 2020-0 Yes Ryan Unknown Unknown tartrate 50 tartrate 50 1-10 Jossy DEWITT mg tablet mg tablet omeprazole omeprazole 2020-0 Yes Ryan Unknown Unknown 40 mg 40 mg - MDJossy capsule,del capsule,del ayed ayed release release Pravachol Pravachol 2020-0 Yes Ryan Unknown Unknown 40 mg 40 mg -10 MDJossy tablet tablet Advair HFA Advair HFA 2020-0 Yes Ryan Unknown Unknown 45 mcg-21 45 mcg-21 - MDJossy mcg/actuati mcg/actuati on aerosol on aerosol inhaler inhaler memantine memantine 2020-0 Yes Ryan Unknown Unknown 10 mg 10 mg - MDJossy tablet tablet PreserVisio PreserVisio 2020-0 Yes Ryan Unknown Unknown n AREDS-2 n AREDS-2 1-10 MDJossy 250 mg-200 250 mg-200 unit-40 unit-40 mg-1 mg mg-1 mg capsule capsule Centrum Centrum 2020-0 Yes Ryan Unknown Unknown Complete 18 Complete 18 -10 Jossy DEWITT mg-400 mcg mg-400 mcg tablet tablet valsartan valsartan 2020-0 Yes Ryan Unknown Unknown 320 mg 320 mg -10 MDJossy tablet tablet acetaminoph acetaminoph 2020-0 Yes Ryan Unknown Unknown en 325 mg en 325 mg -10 MDJossy tablet tablet amoxicillin amoxicillin 2020-0 Yes Ryan Unknown Unknown 500 mg 500 mg -10 MDJossy capsule capsule Diabetic Diabetic 2020-0 Yes Ryan Unknown Unknown Tussin DM Tussin DM 1-10 Jossy DEWITT 10 mg-100 10 mg-100 mg/5 mL mg/5 [...] tablet IBU 600 mg IBU 600 mg Yes Ryan Unknown Unknown tablet tablet 1-10 Jossy DEWITT ondansetron ondansetron Yes Ryan Unknown Unknown 4 mg 4 mg 1-10 Jossy DEWITT disintegrat disintegrat ing tablet ing tablet Vital Signs Vital Name Observation Time Observation Value Comments SYSTOLIC mm[Hg] 2019-10-09 18:09:48 130 mm[Hg] mm[Hg] Method: Sit DIASTOLIC mm[Hg] 2019-10-09 18:09:48 68 mm[Hg] mm[Hg] Method: Sit PULSE 2019-10-09 18:09:48 66 /min /min RESP RATE 2019-10-09 18:09:48 16 /min /min TEMP 2019-10-09 18:09:48 97.5 [degF] Procedures This patient has no known procedures. Plan of Care Planned Activity Planned Date Details Comments Medication 2019-10-13 sulfamethoxazole 800 mg-trimethoprim 160 mg tablet [code = 707837] Results This patient has no known results.
--- OUTSIDE RECORDS SUMMARY | 2019-10-25 09:32 | XMS REPORT ---
:1930 Author Organization [facility] Care Team Providers Name Role Phone Unavailable Unavailable Unavailable Problems Condition Condition Condition Status Onset Resolution Last Treating Comments Name Details Category Date Date Treatment Clinician Date Hypertensiv Hypertensiv Diagnosis Active Speedy e heart e heart 09-30 Graves disease disease [id number] with heart with heart failure failure Heart Heart Diagnosis Active Speedy failure, failure, 09-30 Graves unspecified unspecified [id number] Polyosteoar Polyosteoar Diagnosis Active Speedy thritis, thritis, 09-30 Graves unspecified unspecified [id number] 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 09-30 Graves mellitus mellitus [id number] without without complicatio complicatio ns ns Pulmonary Pulmonary Diagnosis Active Speedy heart heart 09-30 Graves disease, disease, [id number] unspecified unspecified Paroxysmal Paroxysmal Diagnosis Active Speedy atrial atrial 09-30 Graves fibrillatio fibrillatio [id number] n n Obstructive Obstructive Diagnosis Active Speedy sleep apnea sleep apnea Graves (adult) (adult) [id number] (pediatric) (pediatric) 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 [id number] Hypothyroid Hypothyroid Diagnosis Active Speedy ism, ism, Graves unspecified unspecified [id number] Mixed Mixed Diagnosis Active Speedy hyperlipide hyperlipide Graves ze ze [id number] Obesity, Obesity, Diagnosis Active Speedy unspecified unspecified Graves [id number] 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 [id number] 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 [id number] 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 [id number] graft graft History of History of Diagnosis Active Speedy falling falling Graves [id number] Presence of 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 [id number] Personal Personal Diagnosis Active Speedy history of history of Graves nicotine nicotine [id number] dependence 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 (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) (current) Graves use of use of [id number] insulin insulin 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 FDC Diagnosis Active Speedy (current) (current) Graves use of use of [id number] aspirin aspirin FDC FDC Diagnosis Active Speedy (current) (current) Graves use of use of [id number] non-steroid non-steroid al al anti-inflam anti-inflam matories [...] deficit: pt 10:30: 00 Diagnoses knowledge/s Diagnoses Resolve 2019-10-21 Natalie kill d 1-10 15:30:00 [place] deficit: pt 10:30: 00 Musculoskel transfer [...] Unknown Speedy present y 1-10 Graves 14:15: [id number] Endo/Fidel diabetic Endo/Fidel Unknown Speedy foot care 1-10 Graves 14:15: [id number] Integument skin Integument Unknown Speedy integrity 1-10 Graves risk 14:15: [id number] 00 Elimination bowel Eliminatio Unknown Speedy incontinenc n 1-10 Graves e 14:15: [id number] Diagnoses knowledge/s Diagnoses Unknown Speedy kill 10-09 Graves deficit: pt 14:15: [id number] Musculoskel transfer Musculoske Unknown Speedy etal assistance letal 10-09 Graves required 14:15: [id number] Musculoskel knowledge/s Musculoske Unknown Speedy etal kill letal 10-09 Graves deficit: pt 14:15: [id number] Endo/Fidel insulin Endo/Fidel Unknown Speedy admn 10-12 Graves dependence 15:05: [id number] 00 Endo/Fidel glucose Endo/Fidel Unknown Speedy testing 10-12 Graves dependence 15:05: [id number] Endo/Fidel diabetic Endo/Fidel Resolve 2019-10-13 Speedy foot care d 10-12 11:20:00 Graves 15:05: [id number] 00 Endo/Fidel anti-coagul Endo/Fidel Resolve 2019-10-13 Speedy ation d 10-12 11:20:00 Graves therapy 15:05: [id number] 00 Sensory learning Sensory Resolve 2019-10-13 Speedy deficit d 10-12 11:20:00 Graves 15:05: [id number] 00 Elimination urinary Eliminatio Resolve 2019-10-13 Ginny incontinenc n d 10-13 11:20:00 Suhas loaiza 11:20: 00 [facility] tion 15:15: [id number] Activity knowledge/s Activity Active Speedy kill 10-19 Graves deficit: pt 15:30: [id number] 00 Activity self-care Activity Active Speedy deficit 10-19 Graves 15:30: [id number] 00 Medication oral med Meds Active Speedy assistance 10-21 Graves required 15:30: [id number] 00 Medication injectable Meds Active Speedy med 10-21 Graves assistance 15:30: [id number] required 00 Allergies, Adverse Reactions, Alerts Allergy Allergy Type Status Severity Reaction(s) Onset Inactive Treating Comments Name Date Date Clinician Levaquin Medication Active Unknown Severe Ginny Name ID emotional 10-08 Elena reaction [employer] [id number] latex Unknown Active Unknown Reaction Ginny Unknown 10-08 [facility] [id number] cam[employer] Base Active Unknown Reaction Ginny Ingredient Unknown 10-08 [facility] [id number] Medications Ordered Filled Start Stop Current Ordering [...] 10-04 Jossy DEWITT tablet tablet sulfamethox sulfamethox 2020- Yes Ryan Unknown Unknown azole 800 azole 800 10-13 Jossy DEWITT mg-trimetho mg-trimetho prim 160 mg prim 160 mg tablet tablet Levemir Levemir 2020- Yes Ryan Unknown Unknown FlexTouch FlexTouch 10-09 Jossy DEWITT U-100 U-100 Insulin 100 Insulin 100 unit/mL (3 unit/mL (3 mL) mL) subcutane subcutaneou s pen s pen aspirin 81 aspirin 81 2020- Yes Ryan Unknown Unknown mg chewable mg chewable 10-09 Jossy DEWITT tablet tablet calcium calcium 2020- Yes Ryan Unknown Unknown carbonate carbonate 10-09 Jossy DEWITT 600 mg 600 mg (1,500 (1,500 mg)-vitamin mg)-vitamin D3 400 unit D3 400 unit tablet tablet Cartia XT Cartia XT 2020- Yes Ryan Unknown Unknown 240 mg 240 mg 10-09 Jossy DEWITT capsule,ext capsule,ext ended ended release release ferrous ferrous 2020- Yes Ryan Unknown Unknown gluconate gluconate 10-09 Jossy DEWITT 324 mg 324 mg (37.5 mg (37.5 mg iron) iron) tablet tablet FiberCon FiberCon 2020- Yes Ryan Unknown Unknown 625 mg 625 mg 10-09 Jossy DEWITT tablet tablet fluticasone fluticasone 2020- Yes Ryan Unknown Unknown propionate propionate 10-09 Jossy DEWITT 50 50 mcg/actuati mcg/actuati on nasal on nasal spray,suspe spray,suspe nsion nsion Januvia 100 Januvia 100 2020- 2020- Yes Ryan Unknown Unknown mg tablet mg tablet 10-09 ,Jossy Levo-T 88 Levo-T 88 2020- Yes Ryan Unknown Unknown mcg tablet mcg tablet 10-09 Jossy DEWITT magnesium magnesium 2019- 2020- Yes Ryan Unknown Unknown oxide 400 oxide 400 10-09 Jossy DEWITT mg (241.3 mg (241.3 mg mg magnesium) magnesium) tablet tablet melatonin melatonin 2020- Yes Ryan Unknown Unknown 10 mg 10 mg 10-09 ,Jossy tablet tablet memantine memantine 0 2020- Yes Ryan Unknown Unknown 10 mg 10 mg 10-09 Jossy DEWITT tablet tablet metFORMIN metFORMIN 2020- Yes Ryan Unknown Unknown 1,000 mg 1,000 mg 10-09 Jossy DEWITT tablet tablet metoprolol metoprolol 0 2020- Yes Ryan Unknown Unknown tartrate 50 tartrate 50 10-09 Jossy DEWITT mg tablet mg tablet omeprazole omeprazole 2019-0 2020- Yes Ryan Unknown Unknown 40 mg 40 mg 10-09 ,Jossy capsule,del capsule,del ayed ayed release release Pravachol Pravachol 2020- Yes Ryan Unknown Unknown 40 mg 40 mg 10-09 ,Jossy tablet tablet Advair HFA Advair HFA 2020- Yes Rayn Unknown Unknown 45 mcg-21 45 mcg-21 10-09 Jossy DEWITT mcg/actuati mcg/actuati on aerosol on aerosol inhaler inhaler memantine memantine 0 2020- Yes Ryan Unknown Unknown 10 mg 10 mg 10-09 Jossy DEWITT tablet tablet PreserVisio PreserVisio 2020- Yes Ryan Unknown Unknown n AREDS-2 n AREDS-2 10-09 ,Jossy 250 mg-200 250 mg-200 unit-40 unit-40 mg-1 mg mg-1 mg capsule capsule Centrum Centrum 2020- Yes Ryan Unknown Unknown Complete 18 Complete 18 10-09 Jossy DEWITT mg-400 mcg mg-400 mcg tablet tablet valsartan valsartan 2020- Yes Ryan Unknown Unknown 320 mg 320 mg 10-09 Jossy DEWITT tablet tablet acetaminoph acetaminoph 2020- Yes Ryan Unknown Unknown en 325 mg en 325 mg 10-09 ,Jossy tablet tablet amoxicillin amoxicillin 2020- Yes Ryan Unknown Unknown 500 mg 500 mg 10-09 Jossy DEWITT capsule capsule Diabetic Diabetic 2020- Yes Ryan Unknown Unknown Tussin DM Tussin DM 10-09 ,Jossy 10 mg-100 10 mg-100 mg/5 mL mg/5 mL oral liquid oral liquid hydrocortis hydrocortis 2020- Yes Ryan Unknown Unknown one acetate one acetate 10-09 Jossy DEWITT 25 mg 25 mg rectal rectal suppository suppository docusate docusate 2020- Yes Ryan Unknown Unknown sodium 100 sodium 100 10-09 Jossy DEWITT mg capsule mg capsule glucose 4 glucose 4 2020- Yes Ryan Unknown Unknown gram gram 10-09 Jossy DEWITT chewable chewable tablet tablet IBU 600 mg IBU 600 mg 2020- Yes Ryan Unknown Unknown tablet tablet 10-09 Jossy DEWITT ondansetron ondansetron 2020- Yes Ryan Unknown Unknown 4 mg 4 mg 10-09 Jossy DEWITT disintegrat disintegrat ing tablet ing tablet Vital Signs Vital Name Observation Time Observation Value Comments SYSTOLIC mm[Hg] 2019-10-21 18:10:00 128 mm[Hg] mm[Hg] Method: Sit DIASTOLIC mm[Hg] 2019-10-21 18:10:00 64 mm[Hg] mm[Hg] Method: Sit PULSE 2019-10-21 18:10:00 68 /min /min TEMP 2019-10-21 18:10:00 98.8 [degF] Procedures This patient has no known procedures. Results This patient has no known results.
--- OUTSIDE RECORDS SUMMARY | 2019-10-25 09:32 | XMS REPORT ---
:1930 Author Organization [facility] Care Team Providers Name Role Phone Unavailable Unavailable Unavailable Problems Condition Condition Condition Status Onset Resolution Last Treating Comments Name Details Category Date Date Treatment Clinician Date Hypertensiv Hypertensiv Diagnosis Active Speedy e heart e heart 09-30 Graves disease disease [id number] with heart with heart failure failure Heart Heart Diagnosis Active Speedy failure, failure, 09-30 Graves unspecified unspecified [id number] Polyosteoar Polyosteoar Diagnosis Active Speedy thritis, thritis, 09-30 Graves unspecified unspecified [id number] 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 09-30 Graves mellitus mellitus [id number] without without complicatio complicatio ns ns Pulmonary Pulmonary Diagnosis Active Speedy heart heart 09-30 Graves disease, disease, [id number] unspecified unspecified Paroxysmal Paroxysmal Diagnosis Active Speedy atrial atrial 09-30 Graves fibrillatio fibrillatio [id number] n n Obstructive Obstructive Diagnosis Active Speedy sleep apnea sleep apnea Graves (adult) (adult) [id number] (pediatric) (pediatric) 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 [id number] Hypothyroid Hypothyroid Diagnosis Active Speedy ism, ism, Graves unspecified unspecified [id number] Mixed Mixed Diagnosis Active Speedy hyperlipide hyperlipide Graves ze ze [id number] Obesity, Obesity, Diagnosis Active Speedy unspecified unspecified Graves [id number] 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 [id number] 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 [id number] 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 [id number] graft graft History of History of Diagnosis Active Speedy falling falling Graves [id number] Presence of 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 [id number] Personal Personal Diagnosis Active Speedy history of history of Graves nicotine nicotine [id number] dependence 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 Speedy (current) (current) Graves use of use of [id number] insulin insulin 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 FDC Diagnosis Active Speedy (current) (current) Graves use of use of [id number] aspirin aspirin FDC FDC Diagnosis Active Speedy (current) (current) Graves use of use of [id number] non-steroid non-steroid al al anti-inflam anti-inflam matories [...] Unknown Speedy present y 1-10 Graves 14:15: [id number] Endo/Fidel diabetic Endo/Fidel Unknown Speedy foot care 1-10 Graves 14:15: [id number] 00 Integument skin Integument Unknown Speedy integrity 1-10 Graves risk 14:15: [id number] 00 Elimination bowel Eliminatio Unknown Speedy incontinenc n 1-10 Graves e 14:15: [id number] 00 Diagnoses knowledge/s Diagnoses Unknown Speedy kill 10-09 Graves deficit: pt 14:15: [id number] Musculoskel transfer Musculoske Unknown Speedy etal assistance letal 10-09 Graves required 14:15: [id number] Musculoskel knowledge/s Musculoske Unknown Speedy etal kill letal 10-09 Graves deficit: pt 14:15: [id number] 00 Endo/Fidel insulin Endo/Fidel Unknown Speedy admn 10-12 Graves dependence 15:05: [id number] 00 Endo/Fidel glucose Endo/Fidel Unknown Speedy testing 10-12 Graves dependence 15:05: [id number] 00 Endo/Fidel diabetic Endo/Fidel Resolve 2019-10-13 Speedy foot care d 10-12 11:20:00 Graves 15:05: [id number] 00 Endo/Fidel anti-coagul Endo/Fidel Resolve 2019-10-13 Speedy ation d 10-12 11:20:00 Graves therapy 15:05: [id number] 00 Sensory learning Sensory Resolve 2019-10-13 Speedy deficit d 10-12 11:20:00 Graves 15:05: [id number] 00 Elimination urinary Eliminatio Resolve 2019-10-13 Ginny incontinenc n d 10-13 11:20:00 Suhas loaiza 11:20: 00 Safety risk for Safety [facility] tion 15:15: [id number] Activity knowledge/s Activity Active Speedy kill 10-19 Graves deficit: pt 15:30: [id number] 00 Activity self-care Activity Active Speedy deficit 10-19 Graves 15:30: [id number] 00 Medication oral med Meds Active Speedy assistance 10-21 Graves required 15:30: [id number] 00 Medication injectable Meds Active Speedy med 10-21 Graves assistance 15:30: [id number] required 00 Allergies, Adverse Reactions, Alerts Allergy Allergy Type Status Severity Reaction(s) Onset Inactive Treating Comments Name Date Date Clinician Levaquin Medication Active Unknown Severe Ginny Name ID emotional 10-08 Elena reaction [employer] [id number] latex Unknown Active Unknown Reaction Ginny Unknown 10-08 [facility] [id number] cam[employer] Active Unknown Reaction Ginny Ingredient Unknown 10-08 [facility] [id number] Medications Ordered Filled Start Stop Current Ordering [...] tablet Advair HFA Advair HFA 2020- Yes Ryan Unknown Unknown 45 mcg-21 45 mcg-21 10-09 [...]
--- OUTSIDE RECORDS SUMMARY | 2019-10-25 09:32 | XMS REPORT ---
:1930 Author Organization [facility] Care Team Providers Name Role Phone Unavailable Unavailable Unavailable Problems Condition Condition Condition Status Onset Resolution Last Treating Comments Name Details Category Date Date Treatment Clinician Date Hypertensiv Hypertensiv Diagnosis Active Speedy e heart e heart 09-30 Graves disease disease [id number] with heart with heart failure failure Heart Heart Diagnosis Active Speedy failure, failure, 09-30 Graves unspecified unspecified [id number] Polyosteoar Polyosteoar Diagnosis Active Speedy thritis, thritis, 09-30 Graves unspecified unspecified [id number] 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 09-30 Graves mellitus mellitus [id number] without without complicatio complicatio ns ns Pulmonary Pulmonary Diagnosis Active Speedy heart heart 09-30 Graves disease, disease, [id number] unspecified unspecified Paroxysmal Paroxysmal Diagnosis Active Speedy atrial atrial 09-30 Graves fibrillatio fibrillatio [id number] n n Obstructive Obstructive Diagnosis Active Speedy sleep apnea sleep apnea Graves (adult) (adult) [id number] (pediatric) (pediatric) 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 [id number] Hypothyroid Hypothyroid Diagnosis Active Speedy ism, ism, Graves unspecified unspecified [id number] Mixed Mixed Diagnosis Active Speedy hyperlipide hyperlipide Graves ze ze [id number] Obesity, Obesity, Diagnosis Active Speedy unspecified unspecified Graves [id number] 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 [id number] 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 [id number] 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 [id number] graft graft History of History of Diagnosis Active Speedy falling falling Graves [id number] Presence of 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 [id number] Personal Personal Diagnosis Active Speedy history of history of Graves nicotine nicotine [id number] dependence 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 Active Speedy (current) (current) Graves use of use of [id number] insulin insulin manager terminal senior living Diagnosis Active Speedy (current) (current) Graves use of use of [id number] aspirin aspirin senior living senior living Diagnosis Active Speedy (current) (current) Graves use of use of [id number] non-steroid non-steroid al al anti-inflam anti-inflam matories [...] Unknown Speedy present y 1-10 Graves 14:15: [id number] Endo/Fidel diabetic Endo/Fidel Unknown Speedy foot care 1-10 Graves 14:15: [id number] 00 Integument skin Integument Unknown Speedy integrity 1-10 Graves risk 14:15: [id number] 00 Elimination bowel Eliminatio Unknown Speedy incontinenc n 1-10 Graves e 14:15: [id number] 00 Diagnoses knowledge/s Diagnoses Unknown 2020-0 Speedy kill 10-09 Graves deficit: pt 14:15: [id number] 00 Musculoskel transfer Musculoske Unknown Speedy etal assistance letal - Graves required 14:15: [id number] 00 Musculoskel knowledge/s Musculoske Unknown Speedy etal kill letal - Graves deficit: pt 14:15: [id number] 00 Endo/Fidel insulin Endo/Fidel Unknown Speedy admn 10-12 Graves dependence 15:05: [id number] 00 Endo/Fidel glucose Endo/Fidel Unknown Speedy testing 10-12 Graves dependence 15:05: [id number] 00 Endo/Fidel diabetic Endo/Fidel Resolve 2019-10-13 Speedy foot care d 10-12 11:20:00 Graves 15:05: [id number] Endo/Fidel anti-coagul Endo/Fidel Resolve 2019-10-13 Speedy ation d 10-12 11:20:00 Graves therapy 15:05: [id number] 00 Sensory learning Sensory Resolve 2019-10-13 Speedy deficit d 10-12 11:20:00 Graves 15:05: [id number] 00 Elimination urinary Eliminatio Resolve 2019-10-13 Ginny incontinenc n d 10-13 11:20:00 Suhas loaiza 11:20: 00 Safety risk for Safety Active Speedy hospital[facility] 10-15 Graves tion 12:15: [id number] 00 Allergies, Adverse Reactions, Alerts Allergy Allergy Type Status Severity Reaction(s) Onset Inactive Treating Comments Name Date Date Clinician Levaquin Medication Active Unknown Severe Ginny Name ID emotional 10-08 Elena reaction [employer] [id number] latex Unknown Active Unknown Reaction Ginny Unknown 10-08 Elena [employer] [id number] [employer] Active Unknown Reaction Ginyn Ingredient Unknown 10-08 [facility] [id number] Medications Ordered Filled Start Stop Current Ordering [...] 100 unit/mL (3 unit/mL (3 mL) mL) [facility] s pen aspirin 81 aspirin [...] Yes Ryan Unknown Unknown gram gram 1-10 Jsosy DEWITT chewable chewable tablet tablet IBU 600 [...]
--- OUTSIDE RECORDS SUMMARY | 2019-10-25 09:32 | XMS REPORT ---
:1930 Author Organization [facility] Care Team Providers Name Role Phone [...] 1-10 [place] 10:30: 00 Cardio edema Cardiovasc Resolve 2019-10-09 Natalie ular d 1-10 10:30:00 [place] 10:30: 00 Respiratory dyspnea Respirator Resolve 2019-10-09 Natalie present y d 1-10 10:30:00 [place] 10:30: 00 Respiratory CPAP Respirator Resolve 2019-10-09 Natalie treatments y d 1-10 10:30:00 [place] in home 10:30: 00 Endo/Fidel insulin Endo/Fidel Resolve 2019-10-09 Natalie admn d 1-10 10:30:00 [place] dependence 10:30: 00 Endo/Fidel glucose Endo/Fidel Resolve 2019-10-09 Natalie testing d 1-10 10:30:00 [place] dependence 10:30: 00 Endo/Fidel anti-coagul Endo/Fidel Resolve 2019-10-09 Natalie ation d 1-10 10:30:00 [place] therapy 10:30: 00 Endo/Fidel diabetic Endo/Fidel Resolve 2019-10-09 Natalie foot care d 1-10 10:30:00 [place] 10:30: 00 Sensory learning Sensory Resolve 2019-10-09 Natalie deficit d 1-10 10:30:00 [place] 10:30: 00 Integument skin Integument Resolve 2019-10-09 Natalie integrity d 1-10 10:30:00 [place] risk 10:30: 00 Integument knowledge/s Integument Resolve 2019-10-09 Natalie kill d 1-10 10:30:00 [place] deficit: cg 10:30: 00 Nutrition nutritional Nutrition Resolve 2019-10-09 Natalie restriction d 1-10 10:30:00 [place] s 10:30: 00 Elimination bowel Eliminatio Resolve 2019-10-09 Natalie incontinenc n d 1-10 10:30:00 [place] e 10:30: 00 Elimination nausea/vomi Eliminatio Resolve 2019-10-09 Natalie ting n d 1-10 10:30:00 [place] 10:30: 00 Elimination urinary Eliminatio Resolve [...] [place] 10:30: 00 Safety knowledge/s Safety Resolve 2019-10-09 Natalie kill d 1-10 10:30:00 [place] deficit: pt 10:30: 00 Safety fall risk Safety Active Natalie loyd 1-10 [place] present 10:30: 00 Safety risk for Safety Active Natalie neville 1- [place] tion 10:30: 00 Safety can be left Safety Resolve 2019-10-09 Natalie linda for d 1-10 10:30:00 [place] only short 10:30: periods 00 Medication oral med Meds Resolve 2019-10-09 Natalie assistance d 1-10 10:30:00 [place] required 10:30: 00 Medication injectable Meds Resolve 2019-10-09 Natalie med d 1- 10:30:00 [place] assistance 10:30: required 00 Medication knowledge/s Meds Resolve 2019-10-09 Natalie kill d 1-10 10:30:00 [place] deficit: pt 10:30: 00 Diagnoses knowledge/s Diagnoses Resolve 2019-10-09 Natalie kill d 1-10 10:30:00 [place] deficit: pt 10:30: 00 Musculoskel transfer Musculoske Resolve 2019-10-09 Natalie etal assistance letal d 1-10 10:30:00 [place] required 10:30: 00 Musculoskel knowledge/s Musculoske Resolve 2019-10-09 Natalie etal kill letal d 1-10 10:30:00 [place] deficit: pt 10:30: 00 Musculoskel requires Musculoske Resolve 2019-10-09 Natalie etal human letal d 1-10 10:30:00 [place] assist to 10:30: leave home 00 Allergies, Adverse Reactions, Alerts Allergy Allergy Type Status Severity Reaction(s) Onset Inactive Treating Comments Name Date Date Clinician Levaquin Medication Active Unknown Severe Ginny Name ID emotional 10-08 Elena reaction [employer] [id number] latex Unknown Active Unknown Reaction Ginny Unknown 10-08 Elena [employer] [id number] [employer] Active Unknown Reaction Ginny Ingredient Unknown 10-08 Elena [employer] [id number] Medications Ordered Filled Start Stop Current Ordering [...] Unknown Unknown mg tablet mg tablet -10 Jossy DEWITT Levo-T 88 Levo-T 88 2020-0 [...] Ryan Unknown Unknown 1,000 mg 1,000 mg - MD,Jossy tablet tablet metoprolol metoprolol 2020-0 Yes Ryan Unknown Unknown tartrate 50 tartrate 50 -10 ,Jossy mg tablet mg tablet omeprazole omeprazole 2020-0 Yes Ryan Unknown Unknown 40 mg 40 mg - MD,Jossy capsule,del capsule,del ayed ayed release release Pravachol Pravachol 2020-0 Yes Ryan Unknown Unknown 40 mg 40 mg -10 MD,Jossy tablet tablet Advair HFA Advair HFA 2020-0 Yes Ryan Unknown Unknown 45 mcg-21 45 mcg-21 -10 ,Jossy mcg/actuati mcg/actuati on aerosol on aerosol inhaler [...] Unknown Unknown Tussin DM Tussin DM -10 Jossy DEWITT 10 mg-100 10 mg-100 mg/5 mL mg/5 mL oral liquid oral liquid hydrocortis hydrocortis 2019- Yes Ryan Unknown Unknown one acetate one acetate -10 Jossy DEWITT 25 mg 25 mg rectal rectal suppository suppository docusate docusate 2019-0 Yes Ryan Unknown Unknown sodium 100 sodium 100 -10 Jossy DEWITT mg capsule mg capsule glucose 4 glucose 4 2019- Yes Ryan Unknown Unknown gram gram -10 Jossy DEWITT chewable chewable tablet tablet IBU 600 mg IBU 600 mg 2019- Yes Ryan Unknown Unknown tablet tablet 1-10 Jossy DEWITT ondansetron ondansetron 2019- Yes Ryan Unknown Unknown 4 mg 4 mg -10 Jossy DEWITT disintegrat disintegrat ing tablet ing [...] 800 mg-trimethoprim 160 mg tablet [code = 911223] Results This patient has no known results.
--- OUTSIDE RECORDS SUMMARY | 2019-10-25 09:32 | XMS REPORT ---
:1930 Author Organization [facility] Care Team Providers Name Role Phone [...] Name ID emotional 10-08 Elena reaction [employer] [id number] latex Unknown Active Unknown Reaction Ginny Unknown 10-08 Elena [employer] [id number] camphor Base Active Unknown Reaction Ginny Ingredient Unknown 10-08 Elena [employer] [id number] Medications Ordered Filled Start Stop Current Ordering [...] 800 mg-trimethoprim 160 mg tablet [code = 843068] Results This patient has no known results.
--- OUTSIDE RECORDS SUMMARY | 2019-10-25 09:32 | XMS REPORT ---
:1930 Author Organization [facility] Care Team Providers Name Role Phone Unavailable Unavailable Unavailable Problems Condition Condition Condition Status Onset Resolution Last Treating Comments Name Details Category Date Date Treatment Clinician Date Hypertensiv Hypertensiv Diagnosis Active Speedy e heart e heart 09-30 Graves disease disease [id number] with heart with heart failure failure Heart Heart Diagnosis Active Speedy failure, failure, 09-30 Graves unspecified unspecified [id number] Polyosteoar Polyosteoar Diagnosis Active Speedy thritis, thritis, 09-30 Graves unspecified unspecified [id number] 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 09-30 Graves mellitus mellitus [id number] without without complicatio complicatio ns ns Pulmonary Pulmonary Diagnosis Active Speedy heart heart 09-30 Graves disease, disease, [id number] unspecified unspecified Paroxysmal Paroxysmal Diagnosis Active Speedy atrial atrial 09-30 Graves fibrillatio fibrillatio [id number] n n Obstructive Obstructive Diagnosis Active Speedy sleep apnea sleep apnea Graves (adult) (adult) [id number] (pediatric) (pediatric) 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 [id number] Hypothyroid Hypothyroid Diagnosis Active Speedy ism, ism, Graves unspecified unspecified [id number] Mixed Mixed Diagnosis Active Speedy hyperlipide hyperlipide Graves ze ze [id number] Obesity, Obesity, Diagnosis Active Speedy unspecified unspecified Graves [id number] 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 [id number] 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 [id number] 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 [id number] graft graft History of History of Diagnosis Active Speedy falling falling Graves [id number] Presence of 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 [id number] Personal Personal Diagnosis Active Speedy history of history of Graves nicotine nicotine [id number] dependence dependence 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 Speedy (current) (current) Graves use of use of [id number] insulin insulin terminal computer operator assisted Diagnosis Active Speedy (current) (current) Graves use of use of [id number] aspirin aspirin assisted assisted Diagnosis Active Speedy (current) (current) Graves use of use of [id number] non-steroid non-steroid al al anti-inflam anti-inflam matories [...] Unknown Speedy present y 1-10 Graves 14:15: [id number] Endo/Fidel diabetic Endo/Fidel Unknown Speedy foot care 1-10 Graves 14:15: [id number] 00 Integument skin Integument Unknown Speedy integrity 1-10 Graves risk 14:15: [id number] Elimination bowel Eliminatio Unknown Speedy incontinenc n 1-10 Graves e 14:15: [id number] Diagnoses knowledge/s Diagnoses Unknown 2020-0 Speedy kill 10-09 Graves deficit: pt 14:15: [id number] Musculoskel transfer Musculoske Unknown Speedy etal assistance letal 10-09 Graves required 14:15: [id number] Musculoskel knowledge/s Musculoske Unknown Speedy etal kill letal - Graves deficit: pt 14:15: [id number] Endo/Fidel insulin Endo/Fidel Unknown Speedy admn 10-12 Graves dependence 15:05: [id number] Endo/Fidel glucose Endo/Fidel Unknown Speedy testing 10-12 Graves dependence 15:05: [id number] Endo/Fidel diabetic Endo/Fidel Resolve 2019-10-13 Speedy foot care d 10-12 11:20:00 Graves 15:05: [id number] 00 Endo/Fidel anti-coagul Endo/Fidel Resolve 2019-10-13 Speedy ation d 10-12 11:20:00 Graves therapy 15:05: [id number] 00 Sensory learning Sensory Resolve 2019-10-13 Speedy deficit d 10-12 11:20:00 Graves 15:05: [id number] 00 Elimination urinary Eliminatio Resolve 2019-10-13 Ginny incontinenc n d 10-13 11:20:00 Suhas loaiza 11:20: 00 Allergies, Adverse Reactions, Alerts Allergy Allergy Type Status Severity Reaction(s) Onset Inactive Treating Comments Name Date Date Clinician Levaquin Medication Active Unknown Severe Ginny Name ID emotional 10-08 [facility] [id number] latex Unknown Active Unknown Reaction Ginny Unknown 10-08 Elena [employer] [id number] camphor Base Active Unknown Reaction Ginny Ingredient Unknown 10-08 [facility] [id number] Medications Ordered Filled Start Stop Current Ordering Indication Dosage Frequency Signature Comments Components Medication Medication Date Date Medication? Clinician (SIG) Name Name Levemir Levemir 2020- Yes Ryan Unknown Unknown FlexTouch FlexTouch 10-09 Jossy DEWITT U-100 U-100 Insulin 100 Insulin 100 unit/mL (3 unit/mL (3 mL) mL) subcutaneou subcutaneou s pen s pen Levemir Levemir 2020-0 2020- Yes Ryan Unknown Unknown FlexTouch FlexTouch -06 30- Jossy DEWITT U-100 U-100 Insulin 100 Insulin 100 unit/mL (3 unit/mL (3 mL) mL) [facility] s pen s pen acyclovir acyclovir 2019-0 2020- Yes Ryan Unknown Unknown 400 mg 400 mg 10-04- Jossy DEWITT tablet tablet sulfamethox sulfamethox 2020-0 Yes Ryan Unknown Unknown azole 800 azole 800 - Jossy DEWITT mg-trimetho mg-trimetho prim 160 mg prim 160 mg tablet tablet Levemir Levemir 2020-0 Yes Ryan Unknown Unknown FlexTouch FlexTouch - Jossy DEWITT U-100 U-100 Insulin 100 Insulin 100 unit/mL (3 unit/mL (3 mL) mL) [facility] s pen s pen aspirin 81 [...] Unknown Unknown 625 mg 625 mg -10 Jossy DEWITT tablet tablet fluticasone fluticasone 2020-0 Yes Ryan Unknown Unknown propionate propionate 1-10 Jossy DEWITT 50 50 mcg/actuati mcg/actuati on nasal on nasal spray,suspe spray,suspe nsion nsion Januvia 100 Januvia 100 2020-0 Yes Ryan Unknown Unknown mg tablet mg tablet 1-10 Jossy DEWITT Levo-T 88 Levo-T 88 2020-0 Yes Ryan Unknown Unknown mcg tablet mcg tablet -10 Jossy DEWITT magnesium magnesium 2020-0 Yes Ryan Unknown Unknown [...]
--- OUTSIDE RECORDS SUMMARY | 2019-10-25 09:32 | XMS REPORT ---
:1930 Author Organization [facility] Care Team Providers Name Role Phone Unavailable [...] Name ID emotional 10-08 Elena reaction [employer] [id number] latex Unknown Active Unknown Reaction Ginny Unknown 10-08 Elena [employer] [id number] camphor Base Active Unknown Reaction Ginny Ingredient Unknown 10-08 Elena [employer] [id number] Medications Ordered Filled Start Stop Current Ordering Indication Dosage Frequency Signature Comments Components Medication Medication Date Date Medication? Clinician (SIG) Name Name No Known No Known No None None None Medications Medications For This For This Patient Patient Procedures This patient has no known procedures. Results This patient has no known results.
--- OUTSIDE RECORDS SUMMARY | 2019-10-25 09:32 | XMS REPORT ---
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 Heart Heart Diagnosis Active Speedy failure, failure, 09-30 Graves unspecified unspecified [id number] Polyosteoar Polyosteoar Diagnosis Active Speedy thritis, thritis, 09-30 Graves unspecified unspecified [id number] 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 09-30 Graves mellitus mellitus [id number] without without complicatio complicatio ns ns Pulmonary Pulmonary Diagnosis Active Speedy heart heart 09-30 Graves disease, disease, [id number] unspecified unspecified Paroxysmal Paroxysmal Diagnosis Active Speedy atrial atrial 09-30 Graves fibrillatio fibrillatio [id number] n n Obstructive Obstructive Diagnosis Active Speedy sleep apnea sleep apnea Graves (adult) (adult) [id number] (pediatric) (pediatric) 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 [id number] Hypothyroid Hypothyroid Diagnosis Active Speedy ism, ism, Graves unspecified unspecified [id number] Mixed Mixed Diagnosis Active Speedy hyperlipide hyperlipide Graves ze ze [id number] Obesity, Obesity, Diagnosis Active Speedy unspecified unspecified Graves [id number] 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 [id number] 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 [id number] graft graft History of History of Diagnosis Active Speedy falling falling Graves [id number] Presence of 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 [id number] Personal Personal Diagnosis Active Speedy history of history of Graves nicotine nicotine [id number] dependence 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 (current) (current) Graves use of use of [id number] insulin insulin 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 correction Diagnosis Active Speedy (current) (current) Graves use of use of [id number] aspirin aspirin correction correction Diagnosis Active Speedy (current) (current) Graves use of use of [id number] non-steroid non-steroid al al anti-inflam anti-inflam matories [...] Unknown Speedy present y 1-10 Graves 14:15: [id number] Endo/Fidel diabetic Endo/Fidel Unknown Speedy foot care 1-10 Graves 14:15: [id number] 00 Integument skin Integument Unknown Speedy integrity 1-10 Graves risk 14:15: [id number] 00 Elimination bowel Eliminatio Unknown Speedy incontinenc n 1-10 Graves e 14:15: [id number] 00 Diagnoses knowledge/s Diagnoses Unknown Speedy kill 10-09 Graves deficit: pt 14:15: [id number] 00 Musculoskel transfer Musculoske Unknown Speedy etal assistance letal 10-09 Graves required 14:15: [id number] 00 Musculoskel knowledge/s Musculoske Unknown Speedy etal kill letal 10-09 Graves deficit: pt 14:15: [id number] 00 Endo/Fidel insulin Endo/Fidel Unknown Speedy admn 10-12 Graves dependence 15:05: [id number] 00 Endo/Fidel glucose Endo/Fidel Unknown Speedy testing 10-12 Graves dependence 15:05: [id number] 00 Endo/Fidel diabetic Endo/Fidel Resolve 2019-10-13 Speedy foot care d 10-12 11:20:00 Graves 15:05: [id number] 00 Endo/Fidel anti-coagul Endo/Fidel Resolve 2019-10-13 Speedy ation d 10-12 11:20:00 Graves therapy 15:05: [id number] 00 Sensory learning Sensory Resolve 2019-10-13 Speedy deficit d 10-12 11:20:00 Graves 15:05: [id number] 00 Elimination urinary Eliminatio Resolve 2019-10-13 Ginny incontinenc n d 10-13 11:20:00 Suhas loaiza 11:20: 00 Safety risk for [facility] tion 15:15: [id number] 00 Activity knowledge/s Activity Active Speedy kill 10-19 Graves deficit: pt 15:30: [id number] 00 Activity self-care Activity Active Speedy deficit 10-19 Graves 15:30: [id number] 00 Medication oral med Meds Active Speedy assistance 10-21 Graves required 15:30: [id number] 00 Medication injectable Meds Active Speedy med 10-21 Graves assistance 15:30: [id number] required 00 Allergies, Adverse Reactions, Alerts Allergy Allergy Type Status Severity Reaction(s) Onset Inactive Treating Comments Name Date Date Clinician Levaquin Medication Active Unknown Severe Ginny Name ID emotional 10-08 Elena reaction [employer] [id number] latex Unknown Active Unknown Reaction Ginny Unknown 10-08 [facility] [id number] camphor Base Active Unknown Reaction Ginny Ingredient Unknown 10-08 [facility] [id number] Medications Ordered Filled Start Stop Current Ordering [...] iron) tablet tablet FiberCon FiberCon 2020- Yes Yran Unknown Unknown 625 mg 625 mg 10-09 [...]
--- OUTSIDE RECORDS SUMMARY | 2019-10-25 09:33 | XMS REPORT | Continuity of Care Document ---
:1930 External Reference #:[id number] Author Name Latha Blanco N.P. (transmitted by agent of provider Mary Marley) Address [address], [place] [address] Care Team Providers Name Role Phone Kami Bob MD - Internal Care Team Information Offline Editor Medicine Problems Active Problems Provider Date Type [...] L/XL day and as needed M.DCarol 9 [facility] provide 1units Florencia Marieali, necessary cpap 9 supplies, mask to fit, tubing , head gear, filters Onetouch Ultrasoft Test three times 100units Kami Bob, Lancets daily or as directed M.D. 9 [facility] dx E11.21 Zofran Odt Q6H 12tabs Unknown [...] for use with lantus 100units Kami Bob, [place]/Short/31GX5 M.D. 8 /16" 31G X 8 mm [facility] BD Uf Orig Pen NDL Use Once Daily With 100units Kami Bob, [id number] Lantus M.D. 8 Levemir Flextouch inject 33 [...] And as M.D. 8 Strips Needed Pen [place] 1/2" use once daily with 100units Kami [...] twice daily for bone M.D. 5 health [id number] Tablets Multi-Vitamin/[place] 1 tab by mouth every 30tabs Kami [...] 5 45-21mcg/Act for lung disease Aerosol Fluticasone [place] 1 Sprays Each 16units J01.80 Kami Bob, Propionate Nostril Everyday M.D. 5 50mcg/Act Suspension Levothyroxine take 1 tab by mouth 90tabs Kami Bob, Sodium every day 6 days a M.D. 2 88mcg week only Tablets Blood Pressure Cuff as directed 1units I10 Susannah Varela, Large M.D. 2 [facility] Entrust Plus at at bedtime and as 240units R32 Kami Bob, Undergarments needed M.D. 1 [facility] N39.46 Acyclovir take 1 tablet by mouth [...] Capsules day as needed for M.D. constipation [place] And Floss Upper Not on Mar Unknown [...] CPT Code Status Date Vaccine Lot # [id number] Given 09/08/2017 Tdap - Tetanus/Diptheria/Acellular Pertussis 81361 Given 05/06/2017 Influenza Virus Vaccine, Quadrivalent, Split, Preservative Free 62397 Given 03/28/2017 Pneumonia Vaccine [id number] 65946 Given 07/20/2015 Influenza Virus Vaccine, Quadrivalent, Split, Preservative Free 98086 Given 08/31/2014 Pneumococcal Conjugate Vaccine 13 Valent For [id number] Intramuscular Use Q2039 Given 07/07/2014 Flu Vaccine NOS 62760 Given 07/29/2013 Influenza Virus 3Yrs & Over Q2038 Given 06/26/2011 Fluzone Vaccine [id number] Given 08/20/1994 Pneumococcal Conjugate Vaccine 7 Valent [...] Result H/L Range Note Laboratory test 10/06/2019 [facility] Hemoglobin A1c 6.4 5-7 finding Urinalysis Profile 10/02/2019 [facility] Urine Color Yellow [address] [place] [address] [phone] Urine Appearance Cloudy Urine Specific [place] 1.008 Low 1.010-1.030 Urine pH 7.0 Normal [...] Present Abnormal Absent Urine Culture And 10/02/2019 [facility] Urine Culture SEE RESULT [address] [place] [address] [phone] Comp Metabolic 10/02/2019 [facility] Sodium 133 mmol/L Low 135 -[address] [place] [address] [phone] Potassium 3.8 mmol/L Normal 3.5-5.0 Chloride 96 [...] Egfr 119.0 >60 3 CBC Auto 10/02/2019 [facility] White Blood 9.2 10^3/uL Normal 3.5-10.[address] [place] [address] [phone] Red Blood Count 4.55 10^6/uL Normal 3.70-4.87 [...] Blood Cells % 0.1 Laboratory test 10/02/2019 [facility] Lactic Acid 1.0 mmol/L Normal 0.5-2.0 [address] [place] [address] [phone] CBC Auto Diff 04/07/2019 [facility] White Blood 7.1 10^3/uL Normal 3.5-10.[address] [place] [address] [phone] Red Blood Count 4.51 10^6/uL Normal 3.70-4.87 [...] Red Blood Cells % 0.0 Inr/Protime 04/07/2019 [facility] Inr 0.99 Normal 0.82-1.[address] [place] [address] [phone] Laboratory test 04/07/2019 [facility] Lactic Acid 1.0 Normal 0.5-2.0 [address] mmol/[place] [address] [phone] Comp Metabolic 04/07/2019 [facility] Sodium 137 Normal 135- [address] mmol/[place] [address] [phone] Potassium 3.7 mmol/L Normal 3.5-5.0 Chloride 101 [...] Egfr 88.7 >60 7 Laboratory test 04/07/2019 [facility] Magnesium 1.8 mg/dL Low 1.9-2.[address] [place] [address] [phone] Lipase 24 U/L Normal 11.0-82.0 C Reactive Protein 7.79 mg/L Normal <8.01 Urinalysis Profile 04/07/2019 [facility] Urine Color Yellow [address] [place] [address] [phone] Urine Appearance Cloudy Urine Specific [place] 1.006 Low 1.010-1.030 Urine pH 5.0 Normal [...] 1+ Abnormal Absent Urine Culture And 04/07/2019 [facility] Urine Culture SEE RESULT [address] [place] [address] [phone] 1 *Ascorbic acid is present which may interfere with detection of blood. 2 SEE RESULT BELOW Name: JYOTHI KEENE V : [address]: Pritesh Rodriguez MD Acct: [id number] Unit: [id number] AGE: 89 Location: ED Re10/02/19 SEX: F Status: DEP ER SPEC: [id number] ROWAN: 10/02/19 [facility] DR: Baltazar BROWN REQ: [id number] RECD: 10/02/19 STATUS: COMP [facility] DR: Kami Rodriguez MD _ SOURCE: URINE SPDESC: ORDERED: Urine Culture Procedure Result Reported Site Urine Culture Final 10/04/19- 841 ML Organism 1 ESCHERICHIA COLI [place] Count >100,000 (Many) CFU/ML 1. ESCHERICHIA COLI [...] . END OF REPORT DEPARTMENT OF PATHOLOGY, [address] [place] [address] Moses Bernard M.D. Director [facility] # [id number] 3 Because ethnic data is not always [...] 5 Kidney failure <15 (or dialysis) 4 [facility] Severe Sepsis and Septic Shock Management Bundle Measure requires all lactic acids initially measuring >2.0 mmol/L be repeated. 5 Standard intensity warfarin therapeutic range: 2.0-3.0 High intensity warfarin therapeutic range: 2.5-3.5 6 [facility] Severe Sepsis and Septic Shock Management [...] [address]: Chico Santizo MD Acct: [id number] Unit: [id number] AGE: 88 Location: ED Re04/07/19 SEX: F Status: DEP ER SPEC: [id number] ROWAN: 04/07/19 [facility] DR: Alecia BROWN REQ: [id number] RECD: 04/07/19 STATUS: KARINA GARIBAY DR: Kami Santizo MD _ SOURCE: URINE SPDESC: ORDERED: Urine Culture Procedure Result Reported Site Urine Culture Final 04/09/19- 0844 ML Organism 1 ESCHERICHIA COLI [place] Count >100,000 (Many) CFU/ML 1. ESCHERICHIA COLI [...] . END OF REPORT DEPARTMENT OF PATHOLOGY, [address] [place] [address] Moses Bernard M.D. Director [facility] # [id number] Procedures Date Code Description Status 05/21/2019 32262 Pace Maker Eval W/Iterative Adjment Dual Lead Completed 05/21/2019 92755 Pace Maker Eval W/Iterative Adjment Dual Lead Completed 03/19/2019 [id number] Diabetic Retinal Eye Exam Completed 09/26/2018 989512882 Diabetic Retinal Eye Exam Completed 09/12/2017 581367194 Diabetic Retinal Eye Exam Completed 04/04/2017 428723050 Bone Mineral Density Test Completed 03/21/2017 279320829 Diabetic Retinal Eye Exam Completed 09/20/2016 508408051 Diabetic Retinal Eye Exam Completed 03/15/2016 111357245 Diabetic Retinal Eye Exam Completed 09/15/2015 296193555 Diabetic Retinal Eye Exam Completed 03/24/2015 328926838 Bone Mineral Density Test Completed 03/24/2015 93401171 Mammogram Completed 03/10/2015 790361348 Diabetic Retinal Eye Exam Completed 09/09/2014 291744441 Diabetic Retinal Eye Exam Completed 03/23/2014 97409662 Mammogram Completed 09/18/2013 945870105 Diabetic Retinal Eye Exam Completed 09/17/2013 392730041 Diabetic Retinal Eye Exam Completed 02/03/2013 50150685 Mammogram Completed 09/19/2012 933922064 Diabetic Retinal Eye Exam Completed 03/10/2012 [id number] Bone Mineral Density Test Completed 11/29/2011 25938664 Colonoscopy Completed 09/10/2011 524864841 Diabetic Foot Exam Completed 05/01/2011 609116618 Bone Mineral Density Test Completed Medical Devices Description No Information Available Encounters Type Date Location Provider Dx Diagnosis Office Visit 09/28/2019 [facility] Gomez Borrego, R41.3 Other amnesia 10:00a Services Of [facility] N.P. 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 I10 Essential (primary) hypertension I49.5 Sick sinus syndrome Z95.0 Presence of cardiac pacemaker Office Visit 05/21/2019 3:40p [facility] Mallory Felder, I48.0 Paroxysmal atrial Of [facility] M.D. fibrillation I49.5 Sick sinus syndrome Z95.0 Presence of cardiac pacemaker I25.10 Athscl heart disease of [place] coronary artery w/o ang pctrs E78.2 Mixed [...] N.P. 09/28/2019 I25.10 Atherosclerotic heart disease of [place] Gomez Borrego, N.P. coronary artery without angina [...] Schedule 05/21/2019 I25.10 Atherosclerotic heart disease of [place] Mallory Felder M.D. coronary artery without angina [...] 11:10 am - Kami Bob M.D. at [facility] Internal Medicine - Ccmob02/09/2020 10:15 am - Tico Olivarez M.D. at [facility]03/10/2020 10:30 am - Nathalie Valentin NP at [facility]11/24/2019 2:00 pm - Megha Desir MD at [facility] Wsljaoptsm44/07/2020 - Latha Blanco N.P.E11.22 Type 2 diabetes mellitus with diabetic chronic kidney kiuyrbyF15 Syncope and collapseComments:I suspect your fall out [...] ordered physical and occupational therapy.F41.9 Anxiety disorder, [id number] Rash and other nonspecific skin eruptionNew Medication:Clotrimazole/Betamethasone [...]
[2019-10-25 10:16] LABS: ABS Eosinophils 0.2 10^3/ul (0-0.6); ABS Monocytes 0.6 10^3/ul (0-0.8); ABS Neutrophils 3.3 10^3/ul (1.5-7.7); Eosinophil % 4.6 %; Hematocrit 38 % (35-47); Hemoglobin 12.9 g/dL (12.0-16.0); Lymphocyte % 20.2 %; Mean Corpuscular HGB Conc 34 g/dL (31-36); Mean Corpuscular Hemoglobin 32 pg (27-31); Mean Corpuscular Volume 92 fL (80-97); Mean Platelet Volume 6.7 fL (7.4-10.4); Platelet Count 269 10^3/uL (150-450); Red Blood Count 4.09 10^6 /uL (3.70-4.87); Red Cell Distribution Width 15 % (10-15); White Blood Count 5.2 10^3/uL (3.5-10.8)
[2019-10-25 10:26] LABS: Albumin 3.8 g/dL (3.2-5.2); Albumin/Globulin Ratio 1.2 (1-3); BUN/Creatinine Ratio 23.6 (8-20); Calcium 9.3 mg/dL (8.6-10.3); EGFR African American 126.5 (>60); EGFR Non-African American 104.6 (>60); Globulin 3.1 g/dL (2-4); Potassium 4.1 mmol/L (3.5-5.0); Total Bilirubin 0.4 mg/dL (0.2-1.0); Total Protein 6.9 g/dL (6.4-8.9)
[2019-10-25 10:28] LABS: Troponin I 0.01 ng/mL (<0.03)
[2019-10-25 13:55] VITALS: BP 186/92
== END 2019-10-25 13:55 | disposition home or self-care (01) ==
LOC: ED 09:11
DX: R06.02 Shortness of breath (principal); E11.9 Type 2 diabetes mellitus without complications; E03.9 Hypothyroidism, unspecified; I11.0 Hypertensive heart disease with heart failure; I50.9 Heart failure, unspecified; E78.00 Pure hypercholesterolemia, unspecified; J44.9 Chronic obstructive pulmonary disease, unspecified; K21.9 Gastro-esophageal reflux disease without esophagitis; Z85.828 Personal history of other malignant neoplasm of skin; Z87.891 Personal history of nicotine dependence; Z95.0 Presence of cardiac pacemaker; Z79.4 Long term (current) use of insulin; Z79.899 Other long term (current) drug therapy; Z88.0 Allergy status to penicillin; Z88.1 Allergy status to other antibiotic agents
CPT/HCPCS: 36415; 71046; 80053; 83605; 84484; 85025; 93005; 99284

== ENCOUNTER 2019-12-11 14:00 | Emergency (ER) | payer MEDICARE, MEDICAID ==
--- NOTE | 2019-12-11 14:21 | ED ---
HPI Chest Pain - HPI Summary HPI Summary: This pt is an 89 Y/O F presenting to [facility] with a CC of R sided CP, rated a 7/ 10 in severity, that has been constant throughout the day after she woke up. She states that she has a nonproductive cough with chills and sinus pressure. She also states that she is currently SOB. She states that most of the people at [facility] have been sick recently. Pt denies any fever, erythema of eyes, sore throat, abdominal pain, N/V, dysuria, hematuria, myalgia, edema, rash, or dizziness. She states no aggravating or alleviating factors. She has an extensive PMHx of cardiac disease including multiple MIs, HTN, CHF, pacemaker, and DM. - History of Current Complaint Chief Complaint: EDChestPainROMI Time Seen by Provider: 12/11/19 14:12 Hx Obtained From: Patient Onset/Duration: Started Hours Ago Timing: Constant Initial Severity: Severe Current Severity: Severe Pain Intensity: 7 Pain Scale Used: 0-10 Numeric Chest Pain Location: Discrete at:, Right Anterior Chest Pain Radiates: No Character: Cough, Productive Aggravating Factor(s): Nothing Alleviating Factor(s): Nothing Associated Signs and Symptoms: Positive: Negative - erythema of eyes, sore throat, dysuria, hematuria, myalgia, rash, Chest Pain, Shortness of Breath, Chills, Productive Cough. Negative: Dizziness, Fever, Nausea, Abdominal Pain, Vomiting, Edema - Allergy/Home Medications Allergies/Adverse Reactions: Allergies Allergy/AdvReac Type Severity Reaction Status Date / Time levofloxacin Allergy Unknown Unverified 10/02/19 07:02 Reaction Details Penicillins Allergy Hallucinati Unverified 10/02/19 07:01 ons Home Medications: Home Medications Acetaminophen TAB* [Tylenol TAB*] 650 mg PO Q6HR PRN 02/16/13 [History Confirmed 12/11/19] Calcium Carbonate/Vitamin D3 [Calcium 600/Vitamin D] 1 tab PO BID 02/16/13 [ History Confirmed 12/11/19] Levothyroxine TAB* [Synthroid TAB*] 88 mcg PO .6 DAYS/WEEK 02/16/13 [History Confirmed 12/11/19] Metoprolol Tartrate TAB* [Lopressor TAB*] 50 mg PO BID 02/16/13 [History Confirmed 12/11/19] Multivitamins/Minerals TAB* [Thera M Plus*] 1 tab PO DAILY 02/16/13 [History Confirmed 12/11/19] metFORMIN* [Glucophage*] 1,000 mg PO BID 02/16/13 [History Confirmed 12/11/19] Fluticas/Salmet 45/ (NF) [Advair HFA 45/21 (NF)] 1 puff INH BID 12/25/14 [ History Confirmed 12/11/19] Diltiazem CD CAP* [Cardizem CD CAP*] 240 mg PO QAM 07/22/17 [History Confirmed 12/11/19] Docusate CAP* [Colace Cap*] 200 mg PO DAILY PRN 07/22/17 [History Confirmed ] Ferrous Gluconate TAB* [Fergon TAB*] 324 mg PO BID 07/22/17 [History Confirmed 12/11/19] Fluticasone NASAL SPRAY 50MCG* [Flonase NASAL SPRAY 50MCG*] 1 spray BOTH NARES DAILY 07/22/17 [History Confirmed 12/11/19] Magnesium Oxide TAB* [MagOx 400 TAB*] 400 mg PO BID 07/22/17 [History Confirmed 12/11/19] Pravastatin (NF) [Pravachol (NF)] 40 mg PO BEDTIME 07/22/17 [History Confirmed 12/11/19] SitaGLIPtin (NF) [Januvia (NF)] 100 mg PO DAILY 07/22/17 [History Confirmed ] Amoxicillin PO (*) [Amoxicillin 500 MG CAP*] 2,000 mg PO ONCE 08/19/17 [History Confirmed 12/11/19] Aspirin 81 mg CHEW TAB* [Aspirin Low Dose TAB*] 81 mg PO DAILY 08/19/17 [ History Confirmed 12/11/19] Hydrocortisone SUPP* [Anusol HC Supp*] 25 mg DE BID PRN 08/19/17 [History Confirmed 12/11/19] Ibuprofen TAB* [Motrin TAB* 600 MG] 600 mg PO .Q4-6H PRN 08/19/17 [History Confirmed 12/11/19] Dextrose/Vitamin D3 [Trueplus Glucose 4 gm Tab Chew] 2 tab.chew PO DAILY PRN [History Confirmed 12/11/19] Insulin Detemir [Levemir Flextouch] 33 units SUBCUT DAILY 04/07/19 [History Confirmed 12/11/19] Melatonin 10 mg PO BEDTIME PRN 04/07/19 [History Confirmed 12/11/19] Omeprazole (Nf) [Prilosec (NF)] 40 mg PO DAILY 04/07/19 [History Confirmed 12/10] Ondansetron ODT TAB* [Zofran 4 MG Odt TAB*] 4 mg PO Q6H PRN #12 tab.odt [Rx Confirmed 12/11/19] Valsartan TAB* [Diovan TAB*] 320 mg PO DAILY 04/07/19 [History Confirmed ] Guaifenesin/DM (SUGAR FREE)* [Diabetic Tussin DM*] 10 ml PO .Q4-6H PRN 10/02/19 [History Confirmed 12/11/19] Calcium Polycarbophil [Fibercon] 625 mg PO DAILY 10/25/19 [History Confirmed ] Vit C/E/Zn/Coppr/Lutein/Zeaxan [Preservision Areds 2 Softgel] 1 each PO BID [History Confirmed 12/11/19] Dextromethorphan Polistirex [12-Hour Cough Relief] 11 ml PO .Q4-6H PRN 12/11/19 [History Confirmed 12/11/19] Levofloxacin TAB* [Levaquin TAB*] 500 mg PO DAILY #5 tab 12/11/19 [Rx] Loperamide CAP* [Imodium CAP*] 4 mg PO ONCE 12/11/19 [History Confirmed 12/11/19 ] Memantine TAB* [Namenda TAB*] 10 mg PO BID 12/11/19 [History Confirmed 12/11/19] PMH/Surg Hx/FS Hx/Imm Hx Previously Healthy: Yes Endocrine/Hematology History: Reports: Hx Diabetes - on oral meds and insulin, Hx Thyroid Disease - hypothyroidism hx Cardiovascular History: Reports: Hx Congestive Heart Failure, Hx Hypercholesterolemia, Hx Hypertension, Hx Pacemaker/ICD, Hx Syncope Respiratory History: Reports: Hx Asthma, Hx Chronic Obstructive Pulmonary Disease (COPD), Other Respiratory Problems/Disorders - PNA GI History: Reports: Hx Gastroesophageal Reflux Disease History: Denies: Hx Dialysis, Hx Renal Disease Musculoskeletal History: Reports: Hx Arthritis Sensory History: Reports: Hx Cataracts - removed, Hx Contacts or Glasses Denies: Hx Deafness Opthamlomology History: Reports: Hx Cataracts - removed, Hx Contacts or Glasses - Cancer History Cancer Type, Location and Year: 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, surgically removed, per pt Hx Chemotherapy: No Hx Palliative Cancer Treatment: No - Surgical History Surgical History: Yes Surgery Procedure, Year, and Place: PACEMAKER, OPEN HEART SURGERY Hx Anesthesia Reactions: No - Immunization History Date of Tetanus Vaccine: unknown Date of Influenza Vaccine: unknown Immunizations Up to Date: Yes Infectious Disease History: No Infectious Disease History: 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 Negative: Fever Positive: Erythema Positive: Sore Throat Positive: Chest Pain Positive: Shortness Of Breath, Cough - productive Negative: Abdominal Pain, Vomiting, Nausea Negative: dysuria, hematuria Negative: Myalgia, Edema Negative: Rash Neurological/Mental Status: Negative - dizziness All Other Systems Reviewed And Are Negative: Yes Physical Exam - Summary Physical Exam Summary: Constitutional: Well-developed, Well-nourished, Alert. (-) Distressed Skin: Warm, Dry HENT: Normocephalic; Atraumatic Eyes: Conjunctiva normal Neck: Musculoskeletal ROM normal neck. (-) JVD, (-) Stridor, (-) Tracheal deviation Cardio: Rhythm regular, rate normal, Heart sounds normal; Intact distal pulses; The pedal pulses are 2+ and symmetric. Radial pulses are 2+ and symmetric. (-) Murmur Pulmonary/Chest wall: Effort normal. (-) Respiratory distress, Wheezes and crackles in the R lower lung field, (-) Rales Abd: Soft, (-) tenderness, (-) Distension, (-) Guarding, (-) Rebound Musculoskeletal: (-) Edema Lymph: (-) Cervical adenopathy Neuro: Alert, Oriented x3 Psych: Mood and affect Normal Triage Information Reviewed: Yes Vital Signs On Initial Exam: Initial Vitals Temp Pulse Resp BP Pulse Ox 97.7 F 75 20 140/73 99 12/11/19 14:03 12/11/19 14:03 12/11/19 14:03 12/11/19 14:03 12/11/19 14:03 Vital Signs Reviewed: Yes Procedures - Sedation Patient Received Moderate/Deep Sedation with Procedure: No Diagnostics - Vital Signs Vital Signs Temp Pulse Resp BP Pulse Ox 12/11/19 14:03 97.7 F 75 20 140/73 99 - Laboratory Result Diagrams: 12/11/19 14:50 12/11/19 14:50 Lab Statement: Any lab studies that have been ordered have been reviewed, and results considered in the medical decision making process. - Radiology CXR Radiology Interpretation Completed By: Radiologist Summary of Radiographic Findings: 1. Peripheral left midlung zone airspace opacification. 2. Postoperative changes as above. ED physician has reviewed this report. 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 Interpreted by Dr. Santizo at 1420 12/11/2019. Chest Pain Course/Dx - Course Course Of Treatment: This pt is an 89 Y/O F presenting to [facility] with a CC of R sided CP, rated a 7/10 in severity, that has been constant throughout the day after she woke up. She states that she has a nonproductive cough with chills and sinus pressure. She also states that she is currently SOB. She states that most of the people at [facility] have been sick recently. Her PE found that she has wheezes and crackles in the R lower lung field. 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 CXR: 1. Peripheral left midlung zone airspace opacification. 2. Postoperative changes as above. She has no acute abnormalities in her labratory findings that are consistent with her etiology. Her CP does not sound anginal, if her second troponin is negative the pt will be dsicharged home. Her Dx is PNA. Pt's case was discussed with [facility]'s staff including the need for O2 constant nasal cannula treatment until the pt's PNA was resolved. They stated that the oxygen had to be delivered before the pt arrived back to [facility] and orders for the oxygen w/ parameters and evaluation if the staff can administer O2. Pt had no elevated troponin. She will be discharged home with a Dx of PNA. - Diagnoses Provider Diagnoses: PNA (pneumonia) Discharge ED - Sign-Out/Discharge Documenting (check all that apply): Patient Departure - discharge - Discharge Plan Condition: Good Disposition: HOME Prescriptions: Levofloxacin TAB* [Levaquin TAB*] 500 mg PO DAILY #5 tab Patient Education Materials: Pneumonia (ED) Referrals: Maura Dyer NP [Primary Care Provider] - 2 Days Additional Instructions: PLEASE FOLLOW UP WITH YOUR PRIMARY CARE PROVIDER IN THE NEXT 1-3 DAYS AND RETURN TO THE EMERGENCY DEPARTMENT FOR ANY NEW OR WORSENING SYMPTOMS. TAKE THE MEDICATIONS PRESCRIBED TO YOU DIRECTED AND FOR THE REQUIRED TIME FRAME. - Attestation Statements Document Initiated by Scribe: Yes Documenting Scribe: eDric Campos Provider For Whom Scribe is Documenting (Include Credential): Chico Santizo MD Scribe Attestation: Deric Zuleta, scribed for Chico Santizo MD on 12/11/19 at 1853. Status of Scribe Document: Ready
--- OUTSIDE RECORDS SUMMARY | 2019-12-11 14:50 | XMS REPORT | Continuity of Care Document ---
:1930 External Reference #:[id number] Author Name Megha Desir MD (transmitted by agent of provider Jazmyn Barcenas) Address [address] [place] [address] Care Team Providers Name Role Phone Kami Bob MD - Internal Care Team Information Search Marketing Analyst [phone] Medicine Problems Active Problems Provider Date Type [...] Use Never Used Drugs Smoking Status Reviewed: 11/17/19 Patient is a former Smoked 1-2 packs [...] Medications SIG Qnty Indications Ordering Date Provider Calamine topical four times a 177ml Latha Blanco, 8-8% day as needed N.P. 0 Lotion Robitussin 12 Hour 10 milliliters by 118ml Latha [...] L/XL day and as needed M.D. 9 [facility] provide 1units Florencia Oreilly, necessary cpap 9 supplies, mask to fit, tubing , head gear, filters Onetouch Ultrasoft Test three times 100units Kami Bob, Lancets daily or as directed M.D. 9 [facility] dx E11.21 Melatonin 1 capsule at bedtime 90caps R41.3 Tico 10mg Priti Olivarez 9 Capsules Omeprazole 1 by mouth every day 90caps K21.9 Kami Bob, 40mg M.D. [address] Zarate one a day 90tabs K59.1 Kami Bob, 625mg M.D. 9 Tablets Valsartan 1 by mouth every day 90tabs I10 Latha Blanco, 320mg N.P. 8 Tablets BD Uf Orig Pen NDL Use Once Daily With 100units Kami Bob, [id number] Lantus M.D. 8 Levemir Flextouch inject 33 [...] M.D. 5 Caps ER 24HR Metoprolol Tartrate take 1 tablet by 90tabs I10 Latha Blanco, mouth 2 times daily N.P. 5 50mg Tablets for hypertension Calcium take 1 tab by mouth 60tabs Karen Gonzalez, Carbonate-Vitamin D twice daily for bone MD [address] [place] [address] [id number] Tablets Multi-Vitamin/Package Handler 1 tab by mouth every 30tabs Kami [...] R32 Kami Bob, Undergarments needed M.D. 1 [facility] N39.46 Acyclovir take 1 tablet by mouth Unknown 400mg Tablets four times a day x10 days for shingles Acetaminophen 2 every 6 hours as 180tabs Latha Varn, 325mg Tablets needed for pain not to N.P. exceed 2gms/day Hemmorex-HC insert 1 rectally 2 Unknown 25mg times a day for 1 week Suppository then as needed there after for hemorrhoids Ferrous Gluconate take 1 tablet by mouth 60tabs Latha Varn, 324(38Fe) 2 times daily for bone N.P. mg Tablets health Metformin HCL take 1 tablet by mouth 60tabs Latha Varn, 1000mg twice daily for N.P. Tablets diabetes Aspirin take 1 tablet by mouth 30units Kami Bob, 81mg Chewtabs every day dx: heart M.D. disease Magnesium Oxide Take One Tablet By 60tabs Kmai Bob, 400mg Mouth Twice Daily M.D. Tablets [...] Capsules day as needed for M.D. constipation Anton And Floss Upper Not on Mar Unknown [...] CPT Code Status Date Vaccine Lot # [id number] Given 09/08/2017 Tdap - Tetanus/Diptheria/Acellular Pertussis 63225 Given 05/06/2017 Influenza Virus Vaccine, Quadrivalent, Split, Preservative Free 22787 Given 03/28/2017 Pneumonia Vaccine [id number] 36293 Given 07/20/2015 Influenza Virus Vaccine, Quadrivalent, Split, Preservative Free 34926 Given 08/31/2014 Pneumococcal Conjugate Vaccine 13 Valent For [id number] Intramuscular Use Q2039 Given 07/07/2014 Flu Vaccine NOS [id number] Given 07/29/2013 Influenza Virus 3Yrs & Over Q2038 Given 06/26/2011 Fluzone Vaccine [id number] 28178 Given 08/20/1994 Pneumococcal Conjugate Vaccine 7 Valent For Intramuscular Use Vital Signs Date Vital Result Comment 11/17/2019 2:00pm Height 57 inches 4'9" Heart Rate 69 /min BP Systolic Sitting 118 mmHg L arm BP Diastolic Sitting 62 mmHg L arm O2 % BldC Oximetry 94 % 11/03/2019 10:00am Height 57 inches 4'9" Weight 187.00 lb with shoes Heart Rate 62 /min BP Systolic 128 mmHg LA BP Diastolic 67 mmHg LA BMI (Body Mass Index) 40.5 kg/m2 Ejection Fraction 55-60% Echo 10/28/2019 Results Test Acquired Date Facility Test Result H/L Range Note Lipid Profile 11/10/2019 [facility] Triglycerides 60 mg/dL 1, 2 (Trig/Chol/HDL) [address] [place] [address] [phone] Cholesterol 144 mg/dL 3 HDL Cholesterol 59.9 mg/dL 4 LDL Cholesterol 72 mg/dL 5 Laboratory test 10/25/2019 [facility] Troponin-I 0.01 <0.03 [address] (TnI) ng/[place] [address] [phone] CBC Auto Diff 10/25/2019 [facility] White Blood 5.2 Normal 3.5 -10.[address] Count 10^3/[place] [address] [phone] Red Blood Count 4.09 10^6/uL Normal 3.70-4.87 Hemoglobin 12.9 g/dL Normal 12.0-16.0 Hematocrit 38 % Normal 35-47 Mean Corpuscular Volume 92 fL Normal 80-97 Mean Corpuscular Hemoglobin 32 pg High 27-31 Mean Corpuscular HGB Conc 34 g/dL Normal 31-36 Red Cell Distribution Width 15 % Normal 10-15 Platelet Count 269 10^3/uL Normal 150-450 Mean Platelet Volume 6.7 fL Low 7.4-10.4 Abs Neutrophils 3.3 10^3/uL Normal 1.5-7.7 Abs Lymphocytes 1.0 10^3/uL Normal 1.0-4.8 Abs Monocytes 0.6 10^3/uL Normal 0-0.8 Abs Eosinophils 0.2 10^3/uL Normal 0-0.6 Abs Basophils 0.0 10^3/uL Normal 0-0.2 Abs Nucleated RBC 0.0 10^3/uL Granulocyte % 63.5 % Lymphocyte % 20.2 % Monocyte % 11.0 % Eosinophil % 4.6 % Basophil % 0.7 % Nucleated Red Blood Cells % 0.0 Comp Metabolic Panel 10/25/2019 [facility] Sodium 133 mmol/L Low 135-[address] [place] [address] [phone] Potassium 4.1 mmol/L Normal 3.5-5.0 Chloride 95 mmol/L Low 101-111 Co2 Carbon Dioxide 31 mmol/L Normal 22-32 Anion Gap 7 mmol/L Normal 2-11 Glucose 125 mg/dL High 70-100 Blood Urea Nitrogen 13 mg/dL Normal 6-24 Creatinine 0.55 mg/dL Normal 0.51-0.95 BUN/Creatinine Ratio 23.6 High 8-20 Calcium 9.3 mg/dL Normal 8.6-10.3 Total Protein 6.9 g/dL Normal 6.4-8.9 Albumin 3.8 g/dL Normal 3.2-5.2 Globulin 3.1 g/dL Normal 2-4 Albumin/Globulin Ratio 1.2 Normal 1-3 Total Bilirubin 0.40 mg/dL Normal 0.2-1.0 Alkaline Phosphatase 113 U/L High 34-104 Alt 15 U/L Normal 7-52 Ast 17 U/L Normal 13-39 Egfr Non- 104.6 >60 Egfr 126.5 >60 7 Laboratory test 10/25/2019 [facility] Troponin-I (TnI) 0.01 ng/ mL <0.03 [address] [place] [address] [phone] Lactic Acid 1.1 mmol/L Normal 0.5-2.0 9 Laboratory test finding 10/06/2019 [facility] Clinical [facility]inator In House Hemoglobin A1c 6.4 5-7 Urinalysis Profile 10/02/2019 [facility] Urine Color Yellow [address] [place] [address] [phone] Urine Appearance Cloudy Urine Specific [place] 1.008 Low 1.010-1.030 Urine pH 7.0 Normal 5-9 Urine Urobilinogen Negative Negative Urine Ketones Negative Negative Urine Protein 1+(30 mg/dL) Abnormal Negative Urine Leukocytes 1+ Abnormal Negative Urine Blood Negative Negative * * Abnormal Negative 10 Urine Nitrite Negative Negative Urine Bilirubin Negative Negative Urine Glucose Negative Negative Urine White Blood Cell 2+(11-20/hpf) Abnormal Absent Urine Red Blood Cell Trace(0-2/hpf) Absent Urine Bacteria 1+ Abnormal Absent Urine Squamous Epithelial Cell Present Abnormal Absent Urine Culture And 10/02/2019 [facility] Urine SEE RESULT [address] [place] [address] [phone] Comp Metabolic 10/02/2019 [facility] Sodium 133 mmol/L Low 135 -[address] [place] [address] [phone] Potassium 3.8 mmol/L Normal 3.5-5.0 Chloride 96 [...] Egfr Non- 98.3 >60 Egfr 119.0 >60 12 CBC Auto 10/02/2019 [facility] White Blood 9.2 10^3/uL Normal 3.5-10.[address] [place] [address] [phone] Red Blood Count 4.55 10^6/uL Normal 3.70-4.87 [...] Blood Cells % 0.1 Laboratory test 10/02/2019 [facility] Lactic Acid 1.0 mmol/L Normal 0.5-2.0 [address] [place] [address] [phone] 1 [id number] 2 Desirable: <150 Borderline High: 150-199 High: 200-499 Very High: >500 3 Desirable: <200 Borderline High: 200-239 High: >239 4 Low: <40 Desirable: 40-60 High: >60 5 Desirable: <100 Near Optimal: 100-129 Borderline High: 130-159 High: 160-189 Very High: >189 6 Troponin-I testing on Plasma Separator Tubes (PST) has a known false positive rate of 0.20-0.40%. All positive troponins reflex immediately to secondary confirmatory testing. Using the [employer] DxI 800 Access Immunoassay systems, the 99th percentile upper reference limit was demonstrated to be < 0.03 ng/mL. 7 Because ethnic data is not always [...] 5 Kidney failure <15 (or dialysis) 8 Troponin-I testing on Plasma Separator Tubes (PST) has a known false positive rate of 0.20-0.40%. All positive troponins reflex immediately to secondary confirmatory testing. Using the [employer] DxI 800 Access Immunoassay systems, the 99th percentile upper reference limit was demonstrated to be < 0.03 ng/mL. 9 [facility] Severe Sepsis and Septic Shock Management Bundle Measure requires all lactic acids initially measuring >2.0 mmol/L be repeated. 10 *Ascorbic acid is present which may interfere with detection of blood. 11 SEE RESULT BELOW Name: JYOTHI KEENE V : [address]: Pritesh Rodriguez MD Acct: [id number] Unit: [id number] AGE: 89 Location: ED Re10/02/19 SEX: F Status: DEP ER SPEC: [id number] ROWAN: 10/02/19 [facility] DR: Baltazar BROWN REQ: [id number] RECD: 10/02/19 STATUS: KARINA GARIBAY DR: Kami Rodriguez MD _ SOURCE: URINE SPDESC: ORDERED: Urine Culture Procedure Result Reported Site Urine Culture Final 10/04/19841 ML Organism 1 ESCHERICHIA COLI [place] Count >100,000 (Many) CFU/ML 1. ESCHERICHIA COLI [...] . END OF REPORT DEPARTMENT OF PATHOLOGY, [address] [place] [address] Moses Bernard M.D. Director [facility] # [id number] 12 Because ethnic data is not always readily [...] 15-29 5 Kidney failure <15 (or dialysis) [address] [facility] Severe Sepsis and Septic Shock Management Bundle Measure requires all lactic acids initially measuring >2.0 mmol/L be repeated. Procedures Date Code Description Status 11/03/2019 65114 Pace Maker Eval W/Iterative Adjment Dual Lead Completed 11/03/2019 84231 Pace Maker Eval W/Iterative Adjment Dual Lead Completed 11/03/2019 77445 EKG Tracing & Interpretation Completed 10/27/2019 01418 ECHO Transthoracic, Real-Time 2D With Doppler And Completed Color Flow 10/27/2019 59387 ECHO Transthoracic, Real-Time 2D With Doppler And Completed Color Flow 05/21/2019 21656 Pace Maker Eval W/Iterative Adjment Dual Lead Completed 05/21/2019 80165 Pace Maker Eval W/Iterative Adjment Dual Lead Completed 03/19/2019 [id number] Diabetic Retinal Eye Exam Completed 09/26/2018 [id number] Diabetic Retinal Eye Exam Completed 09/12/2017 304950328 Diabetic Retinal Eye Exam Completed 04/04/2017 594529417 Bone Mineral Density Test Completed 03/21/2017 463523341 Diabetic Retinal Eye Exam Completed 09/20/2016 136540186 Diabetic Retinal Eye Exam Completed 03/15/2016 132113839 Diabetic Retinal Eye Exam Completed 09/15/2015 283499703 Diabetic Retinal Eye Exam Completed 03/24/2015 80311915 Mammogram Completed 03/24/2015 654195305 Bone Mineral Density Test Completed 03/10/2015 215876854 Diabetic Retinal Eye Exam Completed 09/09/2014 089090034 Diabetic Retinal Eye Exam Completed 03/23/2014 [id number] Mammogram Completed 09/18/2013 747430758 Diabetic Retinal Eye Exam Completed 09/17/2013 044657582 Diabetic Retinal Eye Exam Completed 02/03/2013 96883725 Mammogram Completed 09/19/2012 318109428 Diabetic Retinal Eye Exam Completed 03/10/2012 938965602 Bone Mineral Density Test Completed 11/29/2011 [id number] Colonoscopy Completed 09/10/2011 179571196 Diabetic Foot Exam Completed 05/01/2011 327588403 Bone Mineral Density Test Completed Medical Devices Description No Information Available Encounters Type Date Location Provider Dx Diagnosis Office Visit 11/17/2019 [facility] Mohammad A. I48.0 Paroxysmal atrial 1:40p MD Karlee fibrillation Z95.0 Presence of cardiac pacemaker Office Visit 11/03/2019 10:30a [facility] Maura S. I34.0 Nonrheumatic mitral Of [facility] Gomez N.P. (valve) insufficiency I25.10 Athscl heart disease of [place] coronary artery w/o ang pctrs I27.20 Pulmonary hypertension, unspecified I49.5 Sick sinus syndrome I48.0 Paroxysmal atrial fibrillation Office Visit 10/06/2019 10:20a [facility] Internal Latha Blanco, E11.9 Type 2 diabetes Medicine - N.P. mellitus without Ccmob complications R55 Syncope and collapse N39.0 Urinary tract infection, site not specified R26.81 Unsteadiness on feet R21 Rash and other nonspecific skin eruption Office Visit 09/28/2019 10:00a [facility] Gomez Borrego, R41.3 Other amnesia Services Of [facility] N.P. 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 I10 Essential (primary) hypertension I49.5 Sick sinus syndrome Z95.0 Presence of cardiac pacemaker Office Visit 05/21/2019 3:40p [facility] Mallory Felder, I48.0 Paroxysmal atrial Of [facility] M.D. fibrillation I49.5 Sick sinus syndrome Z95.0 Presence of cardiac pacemaker I25.10 Athscl heart disease of [place] coronary artery w/o ang pctrs E78.2 Mixed hyperlipidemia R47.01 Aphasia I10 Essential (primary) hypertension G47.33 Obstructive sleep apnea (adult) (pediatric) E66.9 Obesity, unspecified E11.8 Type 2 diabetes mellitus with unspecified complications I34.0 Nonrheumatic mitral (valve) insufficiency Assessments Date Code Description Provider 11/17/2019 I48.0 Paroxysmal atrial fibrillation Megha Desir MD 11/17/2019 Z95.0 Presence of cardiac pacemaker Megha Desir MD 11/03/2019 I49.5 Sick sinus syndrome Mallory Felder M.D. 11/03/2019 I49.5 Sick sinus syndrome Ica Pacer Schedule 11/03/2019 I48.0 Paroxysmal atrial fibrillation Mallory Felder M.D. 11/03/2019 I34.0 Nonrheumatic mitral (valve) insufficiency Marilee Boucher.P. 11/03/2019 Z95.0 Presence of cardiac pacemaker Mallory Felder M.D. 11/03/2019 I48.0 Paroxysmal atrial fibrillation Ica Pacer Schedule 11/03/2019 I25.10 Atherosclerotic heart disease of [place] Maura SCarol Dyer N.P. coronary artery without angina pectoris 11/03/2019 Z95.0 Presence of cardiac pacemaker Ica Pacer Schedule 11/03/2019 I27.20 Pulmonary hypertension, unspecified Maura Dyer, N.P. 11/03/2019 I49.5 Sick sinus syndrome Maura PazCarol Dyre, N.P. 11/03/2019 I48.0 Paroxysmal atrial fibrillation Maura PazCarol Dyer, N.P. 10/27/2019 I34.0 Nonrheumatic mitral (valve) insufficiency Mallory Felder M.D. 10/27/2019 I34.0 Nonrheumatic mitral (valve) insufficiency Traveling ECHO 1 10/06/2019 E11.9 Type 2 diabetes mellitus without Latha Varn, N.P. complications 10/06/2019 R55 Syncope and collapse Latha Blanco, N.P. 10/06/2019 N39.0 Urinary tract infection, site not specified Latha Varmarilee, N.P. 10/06/2019 R26.81 Unsteadiness on feet Latha Blanco, N.P. 10/06/2019 R21 Rash and other nonspecific skin eruption Latha Blanco, N.P. 09/28/2019 R41.3 Other amnesia Gomez Borrego, N.P. 09/28/2019 I25.10 Atherosclerotic heart disease of [place] Gomez Borrego, N.P. coronary artery without angina [...] N.P. 05/26/2019 I49.5 Sick sinus syndrome Gomez Borrego, N.P. 05/26/2019 Z95.0 Presence of cardiac pacemaker Gomez Borrego, N.P. 05/21/2019 I48.0 Paroxysmal atrial fibrillation Mallory [...] Schedule 05/21/2019 I25.10 Atherosclerotic heart disease of [place] Mallory Felder M.D. coronary artery without angina [...] 11:10 am - Kami Bob M.D. at [facility] Internal [facility] - [facility]02/09/2020 10:15 am - Tico Olivarez M.D. at [facility]03/10/2020 10:30 am - Nathalie Valentin NP at [facility]11/17/2019 - Megha Desir MDI48.0 Paroxysmal atrial mohmzfmpmspsR51.0 Presence of cardiac pacemaker Functional Status Functional Condition Comment Date Status Rolling walker is used to ambulate Active Mental Status Description No Information Available Referrals Description No Information Available
--- OUTSIDE RECORDS SUMMARY | 2019-12-11 14:50 | XMS REPORT | Continuity of Care Document ---
:1930 External Reference #:[id number] Author Name Maura Dyer N.P. (transmitted by agent of provider Gail Schultz) Address [address] [place] [address] Care Team Providers Name Role Phone Kami Bob MD - Internal Care Team Information [employer] [phone] Medicine Problems Active Problems Provider Date Type [...] Use Never Used Drugs Smoking Status Reviewed: 11/03/19 Patient is a former Smoked 1-2 packs [...] L/XL day and as needed M.D. 9 [facility] provide 1units Florencia Oreilly, necessary cpap 9 supplies, mask to fit, tubing , head gear, filters Onetouch Ultrasoft Test three times 100units Kami Bob, Lancets daily or as directed M.D. 9 [facility] dx E11.21 Melatonin 1 capsule at bedtime [...] Use Once Daily With 100units Kami Bob, [id number] Lantus M.D. 8 [facility] [employer] inject 33 [...] Gonzalez, Carbonate-Vitamin D twice daily for bone [address] [phone] Tablets Multi-Vitamin/[place] 1 tab by mouth every 30tabs Kami [...] 1units I10 Susannah Varela, Large M.D. 2 [facility] Entrust Plus at at bedtime and as 240units R32 Kami Bob, Undergarments needed M.D. 1 [facility] N39.46 Acyclovir take 1 tablet [...] bone N.P. mg Tablets health Metformin HCL Take 1 Tablet By Mouth [...] Capsules day as needed for M.D. constipation Rosalie And Floss Upper Not on Mar Unknown [...] CPT Code Status Date Vaccine Lot # [id number] Given 09/08/2017 Tdap - Tetanus/Diptheria/Acellular Pertussis 02158 Given 05/06/2017 Influenza Virus Vaccine, Quadrivalent, Split, Preservative Free 54362 Given 03/28/2017 Pneumonia Vaccine [id number] 21180 Given 07/20/2015 Influenza Virus Vaccine, Quadrivalent, Split, Preservative Free 97745 Given 08/31/2014 Pneumococcal Conjugate Vaccine 13 Valent For [id number] Intramuscular Use Q2039 Given 07/07/2014 Flu Vaccine NOS 41621 Given 07/29/2013 Influenza Virus 3Yrs & Over Q2038 Given 06/26/2011 Fluzone Vaccine [id number] 24203 Given 08/20/1994 Pneumococcal Conjugate Vaccine 7 Valent For Intramuscular Use Vital Signs Date Vital Result Comment 11/03/2019 10:00am Height 57 inches 4'9" Weight 187.00 lb with shoes Heart Rate 62 /min BP Systolic 128 mmHg LA BP Diastolic 67 mmHg LA BMI (Body Mass Index) 40.5 kg/m2 Ejection Fraction 55-60% Echo 10/28/2019 10/06/2019 10:41am Height 57 inches 4'9" Weight 185.00 lb Heart Rate 67 /min BP Systolic Sitting 120 mmHg BP Diastolic Sitting 64 mmHg Body Temperature 97.3 F O2 % BldC Oximetry 96 % BMI (Body Mass Index) 40.0 kg/m2 Results Test Acquired Date Facility Test Result H/L Range Note Laboratory test 10/25/2019 [facility] Troponin-I 0.01 ng/mL < 0.03 [address] (TnI) [place] [address] [phone] CBC Auto Diff 10/25/2019 [facility] White 5.2 10^3/uL Normal 3.5-10.[address] [place] [address] Count [phone] Red Blood Count 4.09 10^6/uL Normal 3.70-4.87 [...] Cells % 0.0 Comp Metabolic Panel 10/25/2019 [facility] Sodium 133 mmol/L Low 135-145 [address] [place] [address] [phone] Potassium 4.1 mmol/L Normal 3.5-5.0 Chloride 95 [...] Egfr Non- 104.6 >60 Egfr 126.5 >60 2 Laboratory test 10/25/2019 [facility] Troponin-I (TnI) 0.01 ng/ mL <0.03 [address] [place] [address] [phone] Lactic Acid 1.1 mmol/L Normal 0.5-2.0 4 Laboratory test finding 10/06/2019 D[facility] Clinical Manager In House Hemoglobin A1c 6.4 5-7 Urinalysis Profile 10/02/2019 [facility] Urine Color Yellow [address] [place] [address] [phone] Urine Appearance Cloudy Urine Specific [place] 1.008 Low 1.010-1.030 Urine pH 7.0 Normal 5-9 Urine Urobilinogen Negative Negative Urine Ketones Negative Negative Urine Protein 1+(30 mg/dL) Abnormal Negative Urine Leukocytes 1+ Abnormal Negative Urine Blood Negative Negative * * Abnormal Negative 5 Urine Nitrite Negative Negative Urine Bilirubin Negative Negative Urine Glucose Negative Negative Urine White Blood Cell 2+(11-20/hpf) Abnormal Absent Urine Red Blood Cell Trace(0-2/hpf) Absent Urine Bacteria 1+ Abnormal Absent Urine Squamous Epithelial Cell Present Abnormal Absent Urine Culture And 10/02/2019 [facility] Urine Culture SEE RESULT [address] [place] [address] [phone] Comp Metabolic 10/02/2019 [facility] Sodium 133 mmol/L Low 135 -[address] [place] [address] [phone] Potassium 3.8 mmol/L Normal 3.5-5.0 Chloride 96 [...] Egfr Non- 98.3 >60 Egfr 119.0 >60 7 CBC Auto 10/02/2019 [facility] White Blood 9.2 10^3/uL Normal 3.5-10.[address] [place] [address] [phone] Red Blood Count 4.55 10^6/uL Normal 3.70-4.87 [...] Blood Cells % 0.1 Laboratory test 10/02/2019 [facility] Lactic Acid 1.0 mmol/L Normal 0.5-2.0 [address] [place] [address] [phone] 1 Troponin-I testing on Plasma Separator Tubes (PST) has a known false positive rate of 0.20-0.40%. All positive troponins reflex immediately to secondary confirmatory testing. Using the [employer] DxI 800 Access Immunoassay systems, the 99th percentile upper reference limit was demonstrated to be < 0.03 ng/mL. 2 Because ethnic data is not always readily [...] 15-29 5 Kidney failure <15 (or dialysis) 3 Troponin-I testing on Plasma Separator Tubes (PST) has a known false positive rate of 0.20-0.40%. All positive troponins reflex immediately to secondary confirmatory testing. Using the [employer] DxI 800 Access Immunoassay systems, the 99th percentile upper reference limit was demonstrated to be < 0.03 ng/mL. 4 [facility] Severe Sepsis and Septic Shock Management Bundle Measure requires all lactic acids initially measuring >2.0 mmol/L be repeated. 5 *Ascorbic acid is present which may interfere with detection of blood. 6 SEE RESULT BELOW Name: JYOTHI KEENE V : [address]: Pritesh Rodriguez MD Acct: [id number] Unit: [id number] AGE: 89 Location: ED Re10/02/19 SEX: F Status: DEP ER SPEC: [id number] ROWAN: 10/02/19 [facility]: Baltazar BROWN REQ: [id number] RECD: 10/02/19 STATUS: KARINA GARIBAY DR: Kami Rodriguez MD _ SOURCE: URINE SPDESC: ORDERED: Urine Culture Procedure Result Reported Site Urine Culture Final 10/04/19- 0842 ML Organism 1 ESCHERICHIA COLI [place] Count >100,000 (Many) CFU/ML 1. ESCHERICHIA COLI [...] . END OF REPORT DEPARTMENT OF PATHOLOGY, [address] [place] [address] Moses Bernard M.D. Director [facility] # [id number] 7 Because ethnic data is not always [...] 5 Kidney failure <15 (or dialysis) 8 [place] Severe Sepsis and Septic Shock Management Bundle Measure requires all lactic acids initially measuring >2.0 mmol/L be repeated. Procedures Date Code Description Status 11/03/2019 58458 EKG Tracing & Interpretation Completed 10/27/2019 48277 ECHO Transthoracic, Real-Time 2D With Doppler And Completed Color Flow 10/27/2019 95546 ECHO Transthoracic, Real-Time 2D With Doppler And Completed Color Flow 05/21/2019 99645 Pace Maker Eval W/Iterative Adjment Dual Lead Completed 05/21/2019 82491 Pace Maker Eval W/Iterative Adjment Dual Lead Completed 03/19/2019 [id number] Diabetic Retinal Eye Exam Completed 09/26/2018 [id number] Diabetic Retinal Eye Exam Completed 09/12/2017 326391476 Diabetic Retinal Eye Exam Completed 04/04/2017 362015600 Bone Mineral Density Test Completed 03/21/2017 [id number] Diabetic Retinal Eye Exam Completed 09/20/2016 431602959 Diabetic Retinal Eye Exam Completed 03/15/2016 735303615 Diabetic Retinal Eye Exam Completed 09/15/2015 [id number] Diabetic Retinal Eye Exam Completed 03/24/2015 [id number] Bone Mineral Density Test Completed 03/24/2015 [id number] Mammogram Completed 03/10/2015 691240819 Diabetic Retinal Eye Exam Completed 09/09/2014 [id number] Diabetic Retinal Eye Exam Completed 03/23/2014 [id number] Mammogram Completed 09/18/2013 [id number] Diabetic Retinal Eye Exam Completed 09/17/2013 [id number] Diabetic Retinal Eye Exam Completed 02/03/2013 [id number] Mammogram Completed 09/19/2012 [id number] Diabetic Retinal Eye Exam Completed 03/10/2012 864077908 Bone Mineral Density Test Completed 11/29/2011 [id number] Colonoscopy Completed 09/10/2011 [id number] Diabetic Foot Exam Completed 05/01/2011 576452747 Bone Mineral Density Test Completed Medical Devices Description No Information Available Encounters Type Date Location Provider Dx Diagnosis Office Visit 10/06/2019 [facility] Internal Latha Blanco, E11.9 Type 2 diabetes 10:20a Medicine - Ccmob N.P. mellitus without complications R55 Syncope and collapse N39.0 Urinary tract infection, site not specified R26.81 Unsteadiness on feet R21 Rash and other nonspecific skin eruption Office Visit 09/28/2019 10:00a [facility], R41.3 Other amnesia Services Of [facility] N.P. 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 I10 Essential (primary) hypertension I49.5 Sick sinus syndrome Z95.0 Presence of cardiac pacemaker Office Visit 05/21/2019 3:40p [facility] Mallory Felder, I48.0 Paroxysmal atrial Of [facility] M.DCarol fibrillation I49.5 Sick sinus syndrome Z95.0 Presence of cardiac pacemaker I25.10 Athscl heart disease of [place] coronary artery w/o ang pctrs E78.2 Mixed hyperlipidemia R47.01 Aphasia I10 Essential (primary) hypertension G47.33 Obstructive sleep apnea (adult) (pediatric) E66.9 Obesity, unspecified E11.8 Type 2 diabetes mellitus with unspecified complications I34.0 Nonrheumatic mitral (valve) insufficiency Assessments Date Code Description Provider 11/03/2019 I34.0 Nonrheumatic mitral (valve) insufficiency Maura Dyer, N.P. 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 11/03/2019 I49.5 Sick sinus syndrome Maura Dyer, N.P. 11/03/2019 I48.0 Paroxysmal atrial fibrillation Maura Dyer, N.P. 10/27/2019 I34.0 Nonrheumatic mitral (valve) [...] N.P. 09/28/2019 I25.10 Atherosclerotic heart disease of [place] Gomez Borrego, N.P. coronary artery without angina [...] Schedule 05/21/2019 I25.10 Atherosclerotic heart disease of [place] Mallory Felder M.D. coronary artery without angina [...] 11:10 am - K[facility] 10:15 am - Tico Olivarez M.D. at [place]03/10/2020 10:30 am - Nathalie Valentin NP at [facility]11/24/2019 2:00 pm - Megha Desir MD at [facility] [id number]/04/2020 - Maura Dyer N.P.I34.0 Nonrheumatic mitral ( valve) [id number] Atherosclerotic heart disease of [place] coronary artery without angina pectorisFollow up:PO/OV LS 6moRecommendations:Cont statin Have lipids with next blood drawI27.20 Pulmonary hypertension, unspecifiedRecommendations:Lung pressures slightly elevated possibly from sleep apnea or from afibI49.5 Sick sinus darczqazH95.0 Paroxysmal atrial fibrillationRecommendations:< 30 sec of afib cont ASA Functional Status Functional Condition Comment Date Status Rolling walker is used to ambulate Active Mental Status Description No Information Available Referrals Description No Information Available
--- OUTSIDE RECORDS SUMMARY | 2019-12-11 14:50 | XMS REPORT ---
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 Heart Heart Diagnosis Active Speedy failure, failure, 09-30 Graves unspecified unspecified [id number] Polyosteoar Polyosteoar Diagnosis Active Speedy thritis, thritis, 09-30 Graves unspecified unspecified [id number] 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 09-30 Graves mellitus mellitus [id number] without without complicatio complicatio ns ns Pulmonary Pulmonary Diagnosis Active Speedy heart heart 09-30 Graves disease, disease, [id number] unspecified unspecified Paroxysmal Paroxysmal Diagnosis Active Speedy atrial atrial 09-30 Graves fibrillatio fibrillatio [id number] n n Obstructive Obstructive Diagnosis Active Speedy sleep apnea sleep apnea Graves (adult) (adult) [id number] (pediatric) (pediatric) 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 [id number] Hypothyroid Hypothyroid Diagnosis Active Speedy ism, ism, Graves unspecified unspecified [id number] Mixed Mixed Diagnosis Active Speedy hyperlipide hyperlipide Graves ez ze [id number] Obesity, Obesity, Diagnosis Active Speedy unspecified unspecified Graves [id number] 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 [id number] 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 [id number] 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 graft History of History of Diagnosis Active Speedy falling falling Graves [id number] Presence of 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 [id number] Personal Personal Diagnosis Active Speedy history of history of Graves nicotine nicotine [id number] dependence dependence terminologist terminologist Diagnosis Active Speedy (current) (current) Graves use of use of [id number] insulin insulin terminologist jail Diagnosis Active Speedy (current) (current) Graves use of use of [id number] aspirin aspirin jail jail Diagnosis Active Speedy (current) (current) Graves use of use of [id number] non-steroid non-steroid al al anti-inflam anti-inflam matories [...] Unknown Speedy present y 1-10 Graves 14:15: [id number] Endo/Fidel diabetic Endo/Fidel Unknown Speedy foot care 1-10 Graves 14:15: [id number] 00 Integument skin Integument Unknown Speedy integrity 1-10 Graves risk 14:15: [id number] 00 Elimination bowel Eliminatio Unknown Speedy incontinenc n 1-10 Graves e 14:15: [id number] 00 Diagnoses knowledge/s Diagnoses Unknown Speedy kill 10-09 Graves deficit: pt 14:15: [id number] 00 Musculoskel transfer Musculoske Unknown Speedy etal assistance letal 10-09 Graves required 14:15: [id number] 00 Musculoskel knowledge/s Musculoske Unknown Speedy etal kill letal 10-09 Graves deficit: pt 14:15: [id number] 00 Endo/Fidel insulin Endo/Fidel Unknown Speedy admn 10-12 Graves dependence 15:05: [id number] 00 Endo/Fidel glucose Endo/Fidel Unknown Speedy testing 10-12 Graves dependence 15:05: [id number] Endo/Fidel diabetic Endo/Fidel Resolve 2019-10-13 Speedy foot care d 10-12 11:20:00 Graves 15:05: [id number] 00 Endo/Fidel anti-coagul Endo/Fidel Resolve 2019-10-13 Speedy ation d 10-12 11:20:00 Graves therapy 15:05: [id number] 00 Sensory learning Sensory Resolve 2019-10-13 Speedy deficit d 10-12 11:20:00 Graves 15:05: [id number] 00 Elimination urinary Eliminatio Resolve 2019-10-13 Ginny incontinenc n d 10-13 11:20:00 Suhas loaiza 11:20: 00 Safety risk for [facility] tion 15:15: [id number] 00 Activity knowledge/s Activity Active Speedy kill 10-19 Graves deficit: pt 15:30: [id number] 00 Activity self-care Activity Active Speedy deficit 10-19 Graves 15:30: [id number] 00 Medication oral med Meds Active Speedy assistance 10-21 Graves required 15:30: [id number] 00 Medication injectable Meds Active Speedy med 10-21 Graves assistance 15:30: [id number] required 00 Allergies, Adverse Reactions, Alerts Allergy Allergy Type Status Severity Reaction(s) Onset Inactive Treating Comments Name Date Date Clinician Levaquin Medication Active Unknown Severe Ginny Name ID emotional 10-08 Elena reaction [employer] [id number] latex Unknown Active Unknown Reaction Ginny Unknown 10-08 [facility] [id number] camphor Base Active Unknown Reaction Ginny Ingredient Unknown 10-08 [facility] [id number] Medications Ordered Filled Start Stop Current Ordering [...]
--- OUTSIDE RECORDS SUMMARY | 2019-12-11 14:50 | XMS REPORT | Continuity of Care Document ---
:1930 External Reference #:[id number] Author Name Maura Dyer N.P. (transmitted by agent of provider Tabitha Chung) Address [address] [address] Care Team Providers Name Role Phone Kami Bob MD - Internal Care Team Information Vegetable Tier Medicine Problems Active Problems Provider Date Type [...] L/XL day and as needed M.D. 9 [facility] provide 1units Florecnia Oreilly, necessary cpap 9 supplies, mask to fit, tubing , head gear, filters Onetouch Ultrasoft Test three times 100units Kami Bob, Lancets daily or as directed M.D. 9 [facility] dx E11.21 Melatonin 1 capsule at bedtime [...] Use Once Daily With 100units Kami Bob, [id number] Lantus M.D. 8 Levemir Flextouch inject 33 [...] Gonzalez, Carbonate-Vitamin D twice daily for bone [address] [phone] Tablets Multi-Vitamin/[place] 1 tab by mouth every 30tabs Kami [...] 1units I10 Susannah Varela, Large M.D. 2 [facility] Entrust Plus at at bedtime and as 240units R32 Kami Bob, Undergarments needed M.D. 1 [facility] N39.46 Acyclovir take 1 tablet by mouth [...] Capsules day as needed for M.D. constipation [place] And Floss Upper Not on Mar Unknown [...] CPT Code Status Date Vaccine Lot # [id number] Given 09/08/2017 Tdap - Tetanus/Diptheria/Acellular Pertussis 24240 Given 05/06/2017 Influenza Virus Vaccine, Quadrivalent, Split, Preservative Free 64319 Given 03/28/2017 Pneumonia Vaccine [id number] 18451 Given 07/20/2015 Influenza Virus Vaccine, Quadrivalent, Split, Preservative Free 96721 Given 08/31/2014 Pneumococcal Conjugate Vaccine 13 Valent For [id number] Intramuscular Use Q2039 Given 07/07/2014 Flu Vaccine NOS 51372 Given 07/29/2013 Influenza Virus 3Yrs & Over Q2038 Given 06/26/2011 Fluzone Vaccine [id number] 63654 Given 08/20/1994 Pneumococcal Conjugate Vaccine 7 Valent [...] Result H/L Range Note Laboratory test 10/25/2019 [facility] Troponin-I 0.01 ng/mL < 0.[address] (TnI) [place] [address] [phone] CBC Auto Diff 10/25/2019 [facility] White 5.2 10^3/uL Normal 3.5-10.[address] [place] [address] Count [phone] Red Blood Count 4.09 10^6/uL Normal 3.70-4.87 [...] Cells % 0.0 Comp Metabolic Panel 10/25/2019 [facility] Sodium 133 mmol/L Low 135-145 [address] [place] [address] [phone] Potassium 4.1 mmol/L Normal 3.5-5.0 Chloride 95 [...] Egfr 126.5 >60 2 Laboratory test 10/25/2019 [facility] Troponin-I (TnI) 0.01 ng/ mL <0.03 [address] [place] [address] [phone] Lactic Acid 1.1 mmol/L Normal 0.5-2.0 4 Laboratory test finding 10/06/2019 [facility] Hemoglobin A1c 6.4 5-7 Urinalysis Profile 10/02/2019 [facility] Urine Color Yellow [address] [place] [address] [phone] Urine Appearance Cloudy Urine Specific [place] 1.008 Low 1.010-1.030 Urine pH 7.0 Normal [...] Present Abnormal Absent Urine Culture And 10/02/2019 [facility] Urine Culture SEE RESULT [address] [place] [address] [phone] Comp Metabolic 10/02/2019 [facility] Sodium 133 mmol/L Low 135 -[address] [place] [address] [phone] Potassium 3.8 mmol/L Normal 3.5-5.0 Chloride 96 [...] Egfr 119.0 >60 7 CBC Auto 10/02/2019 [facility] White Blood 9.2 10^3/uL Normal 3.5-10.[address] [place] [address] [phone] Red Blood Count 4.55 10^6/uL Normal 3.70-4.87 [...] Blood Cells % 0.1 Laboratory test 10/02/2019 [facility] Lactic Acid 1.0 mmol/L Normal 0.5-2.0 [address] [place] [address] [phone] 1 Troponin-I testing on Plasma Separator Tubes (PST) has a known false positive rate of 0.20-0.40%. All positive troponins reflex immediately to secondary confirmatory testing. Using the [employer] DxI 800 Access Immunoassay systems, the 99th [...] immediately to secondary confirmatory testing. Using the [employer] DxI 800 Access Immunoassay systems, the 99th percentile upper reference limit was demonstrated to be < 0.03 ng/mL. 4 [facility] Severe Sepsis and Septic Shock Management Bundle Measure requires all lactic acids initially measuring >2.0 mmol/L be repeated. 5 *Ascorbic acid is present which may interfere with detection of blood. 6 SEE RESULT BELOW Name: JYOTHI KEENE V : [address]: Pritesh Rodriguez MD Acct: [id number] Unit: [id number] AGE: 89 Location: ED Re10/02/19 SEX: F Status: DEP ER SPEC: [id number] ROWAN: 10/02/[address] [facility] [address]: Baltazar BROWN REQ: [id number] RECD: 10/02/19 STATUS: KARINA WHALEN DR: Kami Rodriguez MD _ S[facility]: Urine Culture Procedure Result Reported Site Urine Culture Final 10/04/19- 0842 ML Organism 1 ESCHERICHIA COLI [place] Count >100,000 (Many) CFU/ML 1. ESCHERICHIA COLI [...] . END OF REPORT DEPARTMENT OF PATHOLOGY, [address] [place] [address] Moses Bernard M.D. Director [facility] # [id number] 7 Because ethnic data is not always [...] be repeated. Procedures Date Code Description Status 10/27/2019 96045 ECHO Transthoracic, Real-Time 2D With Doppler And Completed Color Flow 10/27/2019 56933 ECHO Transthoracic, Real-Time 2D With Doppler And Completed Color Flow 05/21/2019 70990 Pace Maker Eval W/Iterative Adjment Dual Lead Completed 05/21/2019 77117 Pace Maker Eval W/Iterative Adjment Dual Lead Completed 03/19/2019 288956892 Diabetic Retinal Eye Exam Completed 09/26/2018 380856051 Diabetic Retinal Eye Exam Completed 09/12/2017 860137684 Diabetic Retinal Eye Exam Completed 04/04/2017 598200851 Bone Mineral Density Test Completed 03/21/2017 617529875 Diabetic Retinal Eye Exam Completed 09/20/2016 912612830 Diabetic Retinal Eye Exam Completed 03/15/2016 918149677 Diabetic Retinal Eye Exam Completed 09/15/2015 686914006 Diabetic Retinal Eye Exam Completed 03/24/2015 74193614 Mammogram Completed 03/24/2015 780414440 Bone Mineral Density Test Completed 03/10/2015 640539572 Diabetic Retinal Eye Exam Completed 09/09/2014 521711910 Diabetic Retinal Eye Exam Completed 03/23/2014 16164739 Mammogram Completed 09/18/2013 495264037 Diabetic Retinal Eye Exam Completed 09/17/2013 118865108 Diabetic Retinal Eye Exam Completed 02/03/2013 59257478 Mammogram Completed 09/19/2012 454240731 Diabetic Retinal Eye Exam Completed 03/10/2012 310860438 Bone Mineral Density Test Completed 11/29/2011 11585262 Colonoscopy Completed 09/10/2011 686421594 Diabetic Foot Exam Completed 05/01/2011 512053730 Bone Mineral Density Test Completed Medical Devices Description No Information Available Encounters Type Date Location Provider Dx Diagnosis Office Visit 10/06/2019 [facility] Internal Latha Francis, E11.9 Type 2 diabetes 10:20a Medicine - [facility] N.P. mellitus without complications R55 Syncope and collapse N39.0 Urinary tract infection, site not specified R26.81 Unsteadiness on feet R21 Rash and other nonspecific skin eruption Office Visit 09/28/2019 10:00a [facility], R41.3 Other amnesia Services Of [facility] N.P. 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 10/27/2019 I34.0 Nonrheumatic mitral (valve) insufficiency Traveling ECHO 1 10/06/2019 E11.9 Type 2 diabetes mellitus without Latha Varn, N.P. complications 10/06/2019 R55 Syncope and collapse Latha Varmarilee, N.P. 10/06/2019 N39.0 Urinary tract infection, site not specified Latha Varn, N.P. 10/06/2019 R26.81 Unsteadiness on feet Latha Blanco, N.P. 10/06/2019 R21 Rash and other nonspecific skin eruption Latha Blanco, N.P. 09/28/2019 R41.3 Other amnesia Gomez Borrego, N.P. 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 coronary artery without angina [...] Schedule 05/21/2019 I25.10 Atherosclerotic heart disease of [place] Mallory Felder M.D. coronary artery without angina [...] 10:00 am - Ica Pacer Schedule at [facility]04/05/2020 11:10 am - Kami Bob M.D. at [facility] Internal Medicine - [facility]02/09/2020 10:15 am - Tico Olivarez M.D. at [facility]03/10/2020 10:30 am - Nathalie Valentin NP at [facility]11/24/2019 2:00 pm - Megha Desir MD at [facility] Cbrspzclyl09/07/2020 - Latha Blanco N.P.E11.9 Type 2 diabetes mellitus without dvorzukdidnmgT63 Syncope and collapseComments:I suspect your fall out [...]
[2019-12-11 14:58] LABS: ABS Basophils 0.1 10^3/ul (0-0.2); ABS Eosinophils 0.3 10^3/ul (0-0.6); ABS Lymphocytes 1.4 10^3/ul (1.0-4.8); ABS Monocytes 0.9 10^3/ul (0-0.8); ABS Neutrophils 4.2 10^3/ul (1.5-7.7); Eosinophil % 4.3 %; Hematocrit 37 % (35-47); Hemoglobin 12.4 g/dL (12.0-16.0); Lymphocyte % 20.7 %; Mean Corpuscular HGB Conc 34 g/dL (31-36); Mean Corpuscular Hemoglobin 31 pg (27-31); Mean Corpuscular Volume 94 fL (80-97); Mean Platelet Volume 7.1 fL (7.4-10.4); Nucleated Red Blood Cells % 0.1; Platelet Count 285 10^3/uL (150-450); Red Blood Count 3.94 10^6 /uL (3.70-4.87); Red Cell Distribution Width 15 % (10-15); White Blood Count 6.9 10^3/uL (3.5-10.8)
[2019-12-11 15:17] LABS: Troponin I 0.01 ng/mL (<0.03)
[2019-12-11 15:23] LABS: Albumin 3.6 g/dL (3.2-5.2); Albumin/Globulin Ratio 1.3 (1-3); BUN/Creatinine Ratio 25.4 (8-20); Calcium 9.2 mg/dL (8.6-10.3); EGFR African American 108.2 (>60); EGFR Non-African American 89.4 (>60); Globulin 2.8 g/dL (2-4); Potassium 4.5 mmol/L (3.5-5.0); Total Bilirubin 0.3 mg/dL (0.2-1.0); Total Protein 6.4 g/dL (6.4-8.9)
[2019-12-11] MEDS ORDERED: Azithromycin TAB* 250 MG PO ONE (15:44)
[2019-12-11] MEDS ORDERED: NS 0.9% 500 ML* 500 ML IV ONE (15:48)
[2019-12-11] MEDS ORDERED: Levofloxacin TAB* 500 MG PO ONE (18:39)
[2019-12-11 19:06] VITALS: BP 128/89
== END 2019-12-11 19:09 | disposition home or self-care (01) ==
LOC: ED 14:00
DX: J18.9 Pneumonia, unspecified organism (principal); E11.9 Type 2 diabetes mellitus without complications; I11.0 Hypertensive heart disease with heart failure; I50.9 Heart failure, unspecified; I25.2 Old myocardial infarction; E03.9 Hypothyroidism, unspecified; E78.00 Pure hypercholesterolemia, unspecified; J44.9 Chronic obstructive pulmonary disease, unspecified; K21.9 Gastro-esophageal reflux disease without esophagitis; Z95.0 Presence of cardiac pacemaker; Z87.891 Personal history of nicotine dependence; Z85.828 Personal history of other malignant neoplasm of skin; Z79.4 Long term (current) use of insulin; Z79.82 Long term (current) use of aspirin; Z79.51 Long term (current) use of inhaled steroids; Z79.890 Hormone replacement therapy; Z79.899 Other long term (current) drug therapy; Z88.0 Allergy status to penicillin; Z88.1 Allergy status to other antibiotic agents
CPT/HCPCS: 36415; 71045; 80053; 83605; 84484; 85025; 93005; 99284; A9270-GY

== ENCOUNTER 2021-02-03 06:12 | Inpatient (IN) ==
[2021-02-03] MEDS ORDERED: NS 0.9% 1000 ml BAG 1,000 ML IV ONE (06:26)
[2021-02-03 07:09] LABS: ABS Lymphocytes 0.5 10^3/ul (1.0-4.8); ABS Monocytes 0.7 10^3/ul (0-0.8); ABS Neutrophils 7.6 10^3/ul (1.5-7.7); Eosinophil % 0.2 %; Hematocrit 41 % (35-47); Hemoglobin 13.3 g/dL (12.0-16.0); Lymphocyte % 5.4 %; Mean Corpuscular HGB Conc 33 g/dL (31-36); Mean Corpuscular Hemoglobin 31 pg (27-31); Mean Corpuscular Volume 93 fL (80-97); Mean Platelet Volume 7.6 fL (7.4-10.4); Platelet Count 267 10^3/uL (150-450); Red Blood Count 4.36 10^6 /uL (3.70-4.87); Red Cell Distribution Width 15 % (10-15); White Blood Count 8.9 10^3/uL (3.5-10.8)
[2021-02-03 07:26] LABS: ALT 14 U/L (7-52); AST 17 U/L (13-39); Albumin 3.4 g/dL (3.2-5.2); Albumin/Globulin Ratio 0.9 (1-3); Alkaline Phosphatase 127 U/L (34-104); Anion Gap 11 mmol/L (2-11); Blood Urea Nitrogen 12 mg/dL (6-24); CO2 Carbon Dioxide 29 mmol/L (22-32); Chloride 99 mmol/L (101-111); EGFR African American 118.7 (>60); EGFR Non-African American 98.1 (>60); Globulin 3.6 g/dL (2-4); Glucose 253 mg/dL (70-100); Magnesium 1.3 mg/dL (1.9-2.7); Potassium 3.8 mmol/L (3.5-5.0); Sodium 139 mmol/L (135-145)
[2021-02-03 07:27] LABS: INR 1.24 (0.82-1.09)
[2021-02-03 07:30] LABS: Troponin I 0.04 ng/mL (<0.03)
[2021-02-03 07:39] LABS: Alcohol, S < 10 mg/dL (<10)
[2021-02-03] MEDS ORDERED: Magnesium Sulfate 2 gm BAG 2 GM/50 ML BAG IVPB ONE (07:41)
[2021-02-03] MEDS ORDERED: levETIRAcetam 1000MG IVPREMIX 1,000 MG/100 ML BAG IVPB ONE (08:09)
[2021-02-03] MEDS ORDERED: Iodixanol (CONTRAST) 320 MG/ML 100 ML SDV IV ONE (08:53)
[2021-02-03] MEDS ORDERED: Lorazepam PYXIS KEY PRN (13:35)
[2021-02-03] MEDS ORDERED: LORazepam 2 mg VIAL 1 ml IV PUSH PRN (13:35)
[2021-02-03] MEDS ORDERED: Metoprolol Tartrate 5 mg VIAL 5 ml VIAL (1 mg/ml) IV PRN (13:37)
[2021-02-03] MEDS ORDERED: Dextrose 50% Syringe 50 ml 25 GM/50 ML SYRINGE IV PUSH PRN (13:38)
[2021-02-03 14:07] LABS: Urine Appearance Cloudy; Urine Bilirubin Negative (Negative); Urine Blood 1+ (Negative); Urine Color Yellow; Urine Glucose 3+(>=500 mg/dL) (Negative); Urine Ketones 1+ (Negative); Urine Nitrite Negative (Negative); Urine Protein 3+(>=500 mg/dL) (Negative); Urine Specific Gravity 1.022 (1.002-1.030); Urine Urobilinogen Negative (Negative)
[2021-02-03 14:11] LABS: Urine Bacteria Absent (Absent); Urine Red Blood Cell 2+(6-10/hpf) (Absent); Urine Squamous Epithelial Cell Present (Absent); Urine White Blood Cell 3+(>20/hpf) (Absent)
[2021-02-03] MEDS ORDERED: LORazepam 2 mg VIAL 1 ml ONE (14:59)
[2021-02-03] MEDS ORDERED: Lorazepam PYXIS KEY ONE (14:59)
[2021-02-03] MEDS ORDERED: VALPROIC ACID IVPB ONE (16:00)
[2021-02-03] MEDS ORDERED: NS 0.9% IVPB ONE (16:00)
[2021-02-03] MEDS: levETIRAcetam 500 MG IVPREMIX 500 MG/100 ML BAG IV SCH (21:32)
[2021-02-04 04:23] LABS: ABS Basophils 0.1 10^3/ul (0-0.2); ABS Eosinophils 0.3 10^3/ul (0-0.6); ABS Lymphocytes 1.2 10^3/ul (1.0-4.8); ABS Monocytes 0.7 10^3/ul (0-0.8); ABS Neutrophils 4.8 10^3/ul (1.5-7.7); Eosinophil % 4.8 %; Hematocrit 38 % (35-47); Hemoglobin 12.4 g/dL (12.0-16.0); Lymphocyte % 16.3 %; Mean Corpuscular HGB Conc 33 g/dL (31-36); Mean Corpuscular Hemoglobin 31 pg (27-31); Mean Corpuscular Volume 94 fL (80-97); Mean Platelet Volume 6.9 fL (7.4-10.4); Platelet Count 242 10^3/uL (150-450); Red Blood Count 4.08 10^6 /uL (3.70-4.87); Red Cell Distribution Width 15 % (10-15); White Blood Count 7.1 10^3/uL (3.5-10.8)
[2021-02-04 04:39] LABS: Calcium 8.5 mg/dL (8.6-10.3); EGFR African American 144.2 (>60); EGFR Non-African American 119.2 (>60); Magnesium 1.6 mg/dL (1.9-2.7); Potassium 3.2 mmol/L (3.5-5.0)
[2021-02-04] MEDS ORDERED: Magnesium Sulf 4 GM/100 ML IV 4,000 MG/100 ML BAG IVPB ONE (07:34)
[2021-02-04 07:49] LABS: Phosphorus 2.7 mg/dL (2.5-5.0)
[2021-02-04] MEDS: levETIRAcetam 500 MG IVPREMIX 500 MG/100 ML BAG IV SCH ×2 (08:01→22:35)
[2021-02-04] MEDS: KCL 20 MEQ/100 ML IVPREMIX 20 MEQ/100 ML BAG IV SCH ×3 (09:14→14:02)
[2021-02-04] MEDS ORDERED: Furosemide 40 mg/4 ml IV VIAL IV SLOW PU ONE (09:20)
[2021-02-04] MEDS: Chlorhexidine MOUTHWASH 0.12% 15 ML UDC TOPICAL SCH ×3 (10:07→17:25)
[2021-02-04] MEDS: Pantoprazole VIAL 40 MG VIAL IV SCH (10:07)
[2021-02-04] MEDS: cefTRIAXone 2 GM ADDV.VIAL 2 GM in NS 0.9% 100 ml BAG 100 ML IV SCH ×2 (10:07→23:34)
[2021-02-04] MEDS: Albuterol/Ipratropium NEB.SOL (2.5/0.5 MG) 3 ML NEB.SOLN INH SCH ×3 (10:35→19:24)
[2021-02-04] MEDS: Valproic Acid IV 500 MG in NS 0.9% 100 ml BAG 100 ML IVPB SCH ×2 (11:24→18:03)
[2021-02-04] MEDS: Acyclovir IV 500 MG in NS 0.9% 100 ml BAG 100 ML IVPB SCH ×2 (12:38→22:24)
[2021-02-04] MEDS ORDERED: Dexamethasone IV 4 MG/ML VIAL 1 ml VIAL IV SLOW PU ONE (16:42)
[2021-02-04] MEDS: Lactated Ringers 1000 ml BAG 1,000 ML IV SCH (16:58)
[2021-02-04] MEDS ORDERED: Vancomycin per Pharmacy 1 EA NOTE FOLLOW UP SCH (17:00)
[2021-02-04] MEDS ORDERED: Vancomycin 1,500 MG in NS 0.9% 250 ml 250 ML IVPB ONE (17:00)
[2021-02-04] MEDS ORDERED: Heparin 5000 UNITS/ML 1 mL VIAL SUBCUT SCH (21:00)
[2021-02-05] MEDS: Albuterol/Ipratropium NEB.SOL (2.5/0.5 MG) 3 ML NEB.SOLN INH SCH ×4 (01:16→16:28)
[2021-02-05] MEDS: Chlorhexidine MOUTHWASH 0.12% 15 ML UDC TOPICAL SCH ×7 (03:00→17:41)
[2021-02-05] MEDS: Valproic Acid IV 500 MG in NS 0.9% 100 ml BAG 100 ML IVPB SCH ×3 (03:00→20:06)
[2021-02-05] MEDS ORDERED: Heparin 5000 UNITS/ML 1 mL VIAL SUBCUT SCH (03:30)
[2021-02-05] MEDS: Acyclovir IV 500 MG in NS 0.9% 100 ml BAG 100 ML IVPB SCH ×2 (04:06→12:00)
[2021-02-05 05:16] LABS: ABS Lymphocytes 0.3 10^3/ul (1.0-4.8); ABS Monocytes 0.1 10^3/ul (0-0.8); ABS Neutrophils 5.9 10^3/ul (1.5-7.7); Eosinophil % 0.1 %; Hematocrit 43 % (35-47); Lymphocyte % 5.1 %; Mean Corpuscular HGB Conc 33 g/dL (31-36); Mean Corpuscular Hemoglobin 31 pg (27-31); Mean Corpuscular Volume 94 fL (80-97); Mean Platelet Volume 7.3 fL (7.4-10.4); Platelet Count 281 10^3/uL (150-450); Red Blood Count 4.58 10^6 /uL (3.70-4.87); Red Cell Distribution Width 15 % (10-15); White Blood Count 6.3 10^3/uL (3.5-10.8)
[2021-02-05 05:34] LABS: Blood Urea Nitrogen 10 mg/dL (6-24); CO2 Carbon Dioxide 32 mmol/L (22-32); Calcium 8.6 mg/dL (8.6-10.3); Chloride 97 mmol/L (101-111); EGFR African American 137.7 (>60); EGFR Non-African American 113.8 (>60); Glucose 214 mg/dL (70-100); Phosphorus 2.9 mg/dL (2.5-5.0); Sodium 138 mmol/L (135-145)
[2021-02-05 05:45] LABS: Anion Gap 9 mmol/L (2-11)
[2021-02-05 06:40] LABS: Magnesium 1.7 mg/dL (1.9-2.7); Potassium Redraw 4.1 mmol/L (3.5-5.0)
[2021-02-05] MEDS: Pantoprazole VIAL 40 MG VIAL IV SCH (08:28)
[2021-02-05] MEDS: levETIRAcetam 500 MG IVPREMIX 500 MG/100 ML BAG IV SCH ×2 (08:28→20:06)
[2021-02-05] MEDS: cefTRIAXone 2 GM ADDV.VIAL 2 GM in NS 0.9% 100 ml BAG 100 ML IV SCH (09:29)
[2021-02-05] MEDS ORDERED: Acetaminophen IV 1 GM/100ML 100 ML IVPB SCH ×2 (09:30→17:30)
[2021-02-05] MEDS ORDERED: Metoprolol Tartrate 5 mg VIAL 5 ml VIAL (1 mg/ml) IV PRN (10:57)
[2021-02-05] MEDS ORDERED: hydrALAZINE 20 mg/ml 1 ML Vial IV IV SLOW PU PRN (13:01)
[2021-02-05] MEDS: Morphine 2 MG/ML SYRINGE IV PRN ×2 (16:06→20:06)
[2021-02-05] MEDS ORDERED: Albuterol/Ipratropium NEB.SOL (2.5/0.5 MG) 3 ML NEB.SOLN INH PRN (16:39)
[2021-02-05] MEDS ORDERED: Vancomycin 1,500 MG in NS 0.9% 250 ml 250 ML IVPB SCH (18:00)
[2021-02-05] MEDS: Lactated Ringers 1000 ml BAG 1,000 ML IV SCH (18:05)
[2021-02-05 19:43] VITALS: BP 151/77
[2021-02-06] MEDS: Valproic Acid IV 500 MG in NS 0.9% 100 ml BAG 100 ML IVPB SCH ×3 (02:24→20:42)
[2021-02-06] MEDS: Morphine 2 MG/ML SYRINGE IV PRN ×3 (02:24→20:42)
[2021-02-06] MEDS ORDERED: NS 0.9% IV SCH (09:00)
[2021-02-06] MEDS ORDERED: CEFTRIAXONE ADVAN IV SCH (09:00)
[2021-02-06] MEDS: levETIRAcetam 500 MG IVPREMIX 500 MG/100 ML BAG IV SCH ×2 (09:35→20:42)
[2021-02-06] MEDS: Lactated Ringers 1000 ml BAG 1,000 ML IV SCH (16:47)
[2021-02-06] MEDS ORDERED: Lorazepam PYXIS KEY PRN (17:59)
[2021-02-06] MEDS ORDERED: Magnesium Sulfate 2 gm BAG 2 GM/50 ML BAG IVPB ONE (18:12)
[2021-02-06] MEDS ORDERED: LORazepam 2 mg VIAL 1 ml IV PUSH SCH (18:30)
[2021-02-06] MEDS ORDERED: LORazepam 2 mg VIAL 1 ml IV PUSH PRN (20:19)
[2021-02-07] MEDS: Morphine 2 MG/ML SYRINGE IV PRN ×3 (02:39→12:46)
[2021-02-07] MEDS: Valproic Acid IV 500 MG in NS 0.9% 100 ml BAG 100 ML IVPB SCH ×2 (02:39→10:06)
[2021-02-07] MEDS: levETIRAcetam 500 MG IVPREMIX 500 MG/100 ML BAG IV SCH (09:05)
[2021-02-07] MEDS ORDERED: Lorazepam PYXIS KEY PRN (13:22)
[2021-02-07] MEDS ORDERED: LORazepam 2 mg VIAL 1 ml IV PUSH PRN ×4 (13:22→14:18)
[2021-02-07] MEDS ORDERED: Morphine 2 MG/ML SYRINGE IV SCH (14:00)
[2021-02-07] MEDS ORDERED: Scopolamine PATCH Remove NOTE PATCH OFF SCH (14:00)
[2021-02-07] MEDS ORDERED: LORazepam 2 mg VIAL 1 ml IV PUSH SCH (14:00)
[2021-02-07] MEDS: LORazepam 2 mg VIAL 1 ml IV PUSH SCH ×3 (14:33→22:27)
[2021-02-07] MEDS: Morphine 2 MG/ML SYRINGE IV SCH ×2 (16:21→20:12)
[2021-02-07] MEDS ORDERED: Vancomycin Trough Check NOTE FOLLOW UP ONE (17:30)
[2021-02-07] MEDS ORDERED: Valproic Acid IV 500 MG in NS 0.9% 100 ml BAG 100 ML IVPB SCH (19:00)
== END 2021-02-08 00:20 | disposition expired | DRG 100 ==
LOC: ED 06:12 → ICU 13:18 → MEDTELE 02-05 16:50
PROVIDERS: ADMIT Internal Medicine; ATTEND Internal Medicine